=== PATIENT | female | born 1930 | race Caucasian/White ===

== ENCOUNTER 2018-09-13 09:19 | Emergency (ER) | payer MEDICARE, BC ==
[2018-09-13 09:24] VITALS: TEMP 98.4
--- NOTE | 2018-09-13 09:49 | ED ---
Extremity Problem HPI - General Chief complaint: Extremity Problem,Nontraumatic Stated complaint: arm throbbing Time Seen by Provider: 09/13/18 09:28 Source: patient, family, RN notes reviewed - History of Present Illness Initial comments: This 87-year-old female who was brought in because of left arm pain radiating to her left back she describes as throbbing gets worse when she bends over at rest she is got no pain with slight shortness of breath. She states this occurred upon awaking this morning she believes she may have slept on her left arm. She has no cough fevers chills nausea vomiting sweats palpitations or other symptoms she is wearing a heart monitor at this time. MD Complaint: extremity pain - Related Data Home Medications Medication Instructions Recorded Confirmed Aspirin 81 mg PO DAILY 04/14/16 04/14/16 Digoxin [Lanoxin] 125 mcg PO DAILY 04/14/16 04/14/16 Furosemide [Lasix] 40 mg PO DAILY 04/14/16 04/14/16 Levothyroxine Sodium [Synthroid] 50 mcg PO DAILY 04/14/16 04/14/16 Losartan [Cozaar] 50 mg PO DAILY 04/14/16 04/14/16 Metoprolol Tartrate [Lopressor] 50 mg PO BID 04/14/16 04/14/16 Multivit-Min/Iron/Folic/Lutein 1 each PO DAILY 04/14/16 04/14/16 [Centrum Silver Women Tablet] Omeprazole [PriLOSEC] 20 mg PO AC-BRKFST 04/14/16 04/14/16 Potassium Chloride [K-Tab ER] 10 meq PO BID 04/14/16 04/14/16 Simvastatin [Zocor] 10 mg PO HS 04/14/16 04/14/16 Warfarin [Coumadin] 5 mg PO DAILY 04/14/16 04/14/16 Allergies Allergy/AdvReac Type Severity Reaction Status Date / Time No Known Allergies Allergy Verified 09/13/18 10:12 Review of Systems ROS Statement: Those systems with pertinent positive or pertinent negative responses have been documented in the HPI. ROS Other: All systems not noted in ROS Statement are negative. Past Medical History Past Medical History: Atrial Fibrillation, Hyperlipidemia, Hypertension, Thyroid Disorder History of Any Multi-Drug Resistant Organisms: None Reported Past Surgical History: Orthopedic Surgery Past Psychological History: No Psychological Hx Reported Smoking Status: Never smoker Past Alcohol Use History: Occasional Past Drug Use History: None Reported General Exam - General Exam Comments Initial Comments: This is a well-developed well-nourished awake alert anxious appearing female General appearance: alert, anxious Head exam: Present: atraumatic, normocephalic, normal inspection Eye exam: Present: normal appearance, PERRL, EOMI. Absent: scleral icterus, conjunctival injection, periorbital swelling ENT exam: Present: normal exam, mucous membranes moist Neck exam: Present: normal inspection. Absent: tenderness, meningismus, lymphadenopathy Respiratory exam: Present: normal lung sounds bilaterally. Absent: respiratory distress, wheezes, rales, rhonchi, stridor Cardiovascular Exam: Present: regular rate, normal rhythm, normal heart sounds. Absent: systolic murmur, diastolic murmur, rubs, gallop, clicks GI/Abdominal exam: Present: soft, normal bowel sounds. Absent: distended, tenderness, guarding, rebound, rigid, bruit, pulsatile mass, hernia Extremities exam: Present: normal inspection, full ROM, normal capillary refill. Absent: tenderness, pedal edema, joint swelling, calf tenderness Back exam: Present: normal inspection, full ROM, tenderness, paraspinal tenderness. Absent: CVA tenderness (R), CVA tenderness (L), muscle spasm, vertebral tenderness, rash noted (Tenderness palpation of the left paraspinous musculature at the level of the inferior scapula on the left no step-off no crepitation there is some kyphosis is demonstrated.) Neurological exam: Present: alert, oriented X3, CN II-XII intact Psychiatric exam: Present: normal affect, normal mood Skin exam: Present: warm, dry, intact, normal color. Absent: rash Course Vital Signs 09/13/18 09:20 Temperature 98.4 F Pulse Rate 68 Respiratory 18 Rate Blood Pressure 153/96 O2 Sat by Pulse 98 Oximetry Medical Decision Making - Medical Decision Making Patient is feeling well at this time I did discuss [employer] her and her family the patient's presentation consistent with musculoskeletal chest wall pain. This does not appear to be cardiac in origin. Patient will be discharged with instructions for Tylenol for pain from compresses follow-up with her doctor and return when necessary - Lab Data Result diagrams: 09/13/18 10:07 09/13/18 10:07 Lab Results 09/13/18 09/13/18 09/13/18 Range/Units 10:07 10:07 10:07 WBC 6.5 (3.8-10.6) k/uL RBC 4.52 (3.80-5.40) m/uL Hgb 13.5 (11.4-16.0) gm/dL Hct 40.4 (34.0-46.0) % MCV 89.4 (80.0-100.0) fL MCH 29.8 (25.0-35.0) pg MCHC 33.3 (31.0-37.0) g/dL RDW 13.7 (11.5-15.5) % Plt Count 195 (150-450) k/uL Neutrophils % 62 % Lymphocytes % 29 % Monocytes % 5 % Eosinophils % 2 % Basophils % 1 % Neutrophils # 4.0 (1.3-7.7) k/uL Lymphocytes # 1.9 (1.0-4.8) k/uL Monocytes # 0.3 (0-1.0) k/uL Eosinophils # 0.1 (0-0.7) k/uL Basophils # 0.0 (0-0.2) k/uL PT (9.0-12.0) sec INR (<1.2) APTT (22.0-30.0) sec Sodium 140 (137-145) mmol/L Potassium 4.5 (3.5-5.1) mmol/L Chloride 106 (98-107) mmol/L Carbon Dioxide 24 (22-30) mmol/L Anion Gap 10 mmol/L BUN 19 H (7-17) mg/dL Creatinine 0.76 (0.52-1.04) mg/dL Est GFR (CKD-EPI)AfAm 83 (>60 ml/min/1.73 sqM) Est GFR (CKD-EPI)NonAf 72 (>60 ml/min/1.73 sqM) Glucose 98 (74-99) mg/dL Calcium 9.6 (8.4-10.2) mg/dL Magnesium 2.1 (1.6-2.3) mg/dL Total Bilirubin 0.6 (0.2-1.3) mg/dL AST 27 (14-36) U/L ALT 28 (9-52) U/L Alkaline Phosphatase 62 (38-126) U/L Total Creatine Kinase 63 (30-135) U/L CK-MB (CK-2) 1.1 (0.0-2.4) ng/mL CK-MB (CK-2) Rel Index 1.7 Troponin I <0.012 (0.000-0.034) ng/mL NT-Pro-B Natriuret Pep pg/mL Total Protein 6.8 (6.3-8.2) g/dL Albumin 4.1 (3.5-5.0) g/dL Amylase 63 (30-110) U/L Lipase 199 (23-300) U/L 09/13/18 09/13/18 Range/Units 10:07 10:07 WBC (3.8-10.6) k/uL RBC (3.80-5.40) m/uL Hgb (11.4-16.0) gm/dL Hct (34.0-46.0) % MCV (80.0-100.0) fL MCH (25.0-35.0) pg MCHC (31.0-37.0) g/dL RDW (11.5-15.5) % Plt Count (150-450) k/uL Neutrophils % % Lymphocytes % % Monocytes % % Eosinophils % % Basophils % % Neutrophils # (1.3-7.7) k/uL Lymphocytes # (1.0-4.8) k/uL Monocytes # (0-1.0) k/uL Eosinophils # (0-0.7) k/uL Basophils # (0-0.2) k/uL PT 26.8 H (9.0-12.0) sec INR 3.0 H (<1.2) APTT 35.6 H (22.0-30.0) sec Sodium (137-145) mmol/L Potassium (3.5-5.1) mmol/L Chloride (98-107) mmol/L Carbon Dioxide (22-30) mmol/L Anion Gap mmol/L BUN (7-17) mg/dL Creatinine (0.52-1.04) mg/dL Est GFR (CKD-EPI)AfAm (>60 ml/min/1.73 sqM) Est GFR (CKD-EPI)NonAf (>60 ml/min/1.73 sqM) Glucose (74-99) mg/dL Calcium (8.4-10.2) mg/dL Magnesium (1.6-2.3) mg/dL Total Bilirubin (0.2-1.3) mg/dL AST (14-36) U/L ALT (9-52) U/L Alkaline Phosphatase (38-126) U/L Total Creatine Kinase (30-135) U/L CK-MB (CK-2) (0.0-2.4) ng/mL CK-MB (CK-2) Rel Index Troponin I (0.000-0.034) ng/mL NT-Pro-B Natriuret Pep 878 pg/mL Total Protein (6.3-8.2) g/dL Albumin (3.5-5.0) g/dL Amylase (30-110) U/L Lipase (23-300) U/L - EKG Data -: EKG Interpreted by Me (Atrial fibrillation rate of 68 QRS 98 QT since QTC 380 /412 left exodeviatio) - Radiology Data Radiology results: report reviewed (I did review the imaging and report no acute findings.), image reviewed Disposition Clinical Impression: Myofascial pain, Chest wall pain Disposition: HOME SELF-CARE Condition: Good Instructions: Chest Wall Pain (ED), Musculoskeletal Pain (ED) Additional Instructions: Tylenol for pain Is patient prescribed a controlled substance at d/c from ED?: No Referrals: Juan Chappell MD [Primary Care Provider] - 1-2 days
[2018-09-13 10:32] LABS: Basophils % (A) 1 %; Eosinophils # (A) 0.1 k/uL (0-0.7); Eosinophils % (A) 2 %; HCT 40.4 % (34.0-46.0); HGB 13.5 gm/dL (11.4-16.0); Lymphocytes # (A) 1.9 k/uL (1.0-4.8); Lymphocytes % (A) 29 %; MCH 29.8 pg (25.0-35.0); MCHC 33.3 g/dL (31.0-37.0); MCV 89.4 fL (80.0-100.0); Mean Platelet Volume 7.3; Monocytes # (A) 0.3 k/uL (0-1.0); Monocytes % (A) 5 %; Neutrophils % (A) 62 %; Platelet Count 195 k/uL (150-450); RBC 4.52 m/uL (3.80-5.40); RDW 13.7 % (11.5-15.5); WBC 6.5 k/uL (3.8-10.6)
[2018-09-13 10:44] LABS: Albumin 4.1 g/dL (3.5-5.0); Calcium 9.6 mg/dL (8.4-10.2); Magnesium 2.1 mg/dL (1.6-2.3); Potassium 4.5 mmol/L (3.5-5.1); Total Bilirubin 0.6 mg/dL (0.2-1.3); Total Protein 6.8 g/dL (6.3-8.2)
[2018-09-13 10:55] LABS: Creatine Kinase 63 U/L (30-135)
--- NOTE | 2018-09-13 11:00 | XR ---
EXAMINATION TYPE: XR chest 2V DATE OF EXAM: 09/13/2018 COMPARISON: Prior chest x-ray 07/25/2013 HISTORY: Chest pain TECHNIQUE: Frontal and lateral views of the chest are obtained. FINDINGS: There is no focal air space opacity, pleural effusion, or pneumothorax seen. The cardiac silhouette size appears enlarged although patient is rotated which makes accentuate appearance. Arth ropathy is noted in the shoulders. The osseous structures are intact. There are overlying cardiac pascale ds. Prominent lung volume may be indicative of COPD. IMPRESSION: Possible cardiomegaly..
[2018-09-13 11:04] LABS: Partial Thromboplastin Time 35.6 sec (22.0-30.0); Prothrombin Time 26.8 sec (9.0-12.0)
[2018-09-13 11:08] LABS: Creatine Kinase MB 1.1 ng/mL (0.0-2.4); Troponin I <0.012 ng/mL (0.000-0.034)
[2018-09-13 12:15] VITALS: BP 138/93; PULSE 65; RESP 16
== END 2018-09-13 12:10 | disposition home or self-care (01) ==
LOC: EC 09:19
DX: R07.89 Other chest pain (principal); M79.18 Myalgia, other site; R06.02 Shortness of breath; I48.91 Unspecified atrial fibrillation; E78.5 Hyperlipidemia, unspecified; I10 Essential (primary) hypertension; E07.9 Disorder of thyroid, unspecified; Z79.82 Long term (current) use of aspirin; Z79.01 Long term (current) use of anticoagulants; Z79.899 Other long term (current) drug therapy
CPT/HCPCS: 36415; 71046; 80053; 82150; 82550; 82553; 83690; 83735; 83880; 84484; 85025; 85610; 85730; 93005; 99284

== ENCOUNTER 2018-12-06 09:14 | Emergency (ER) | payer MEDICARE, BC ==
--- NOTE | 2018-12-06 09:53 | ED ---
General Adult HPI - General Chief complaint: Weakness Stated complaint: Blood specks coming out of nose Time Seen by Provider: 12/06/18 09:35 Source: patient Mode of arrival: wheelchair Limitations: no limitations - History of Present Illness Initial comments: Dictation was produced using [employer] dictation software. please excuse any grammatical, word or spelling errors. Chief Complaint: 88-year-old female presents with chief complaint of blood on the tissue when she blew her nose History of Present Illness: Patient is an 88-year-old female. She takes Coumadin. She complained of bloody nose when she blew her nose. There was some mucus coated with blood. She thought that this represented she was having a stroke. Patient complains of some right nose for the past 3 days. Denies any facial pain or teeth pain. Patient denies any neurologic deficits. She had her Coumadin last check on the 30th of last month with INR 1.9. She took half a tab extra that day. The ROS documented in this emergency department record has been reviewed and confirmed by me. Those systems with pertinent positive or negative responses have been documented in the HPI. All other systems are other negative and/or noncontributory. PHYSICAL EXAM: General Impression: Alert and oriented x3, not in acute distress HEENT: Normocephalic atraumatic, extra-ocular movements intact, pupils equal and reactive to light bilaterally, mucous membranes moist. Cardiovascular: Heart regular rate and rhythm, S1&S2 audible, no murmurs, rubs or gallops Chest: Lungs clear to auscultation bilaterally, no rhonchi, no wheeze, no rales Abdomen: Bowel sounds present, abdomen soft, non-tender, non-distended, no organomegaly Musculoskeletal: Pulses present and equal in all extremities, no peripheral edema Motor: Power 5/5 bilaterally, no focal deficits noted Neurological: CN II-XII grossly intact, no focal motor or sensory deficits noted Skin: Intact with no visualized rashes Psych: Normal affect and mood ED course: 88-year-old female presents with chief complaint of concerns of possible stroke. She feels that her symptoms of bloody nose with mucus + of her having any active stroke. Patient denies any neuro deficits. As upon arrival are within acceptable limits. Reassurance provided saying that patient does not have a stroke. Patient also had secondary complaint of left elbow pain. Left elbow x-ray was obtained. X-rays unremarkable. INR is 2.1. Patient reassured that she is not having a stroke. Patient given Kingfisher [place] for her nose to prevent nose bleeding. She is told to obtain a humidifier. She is told to keep the nasal mucosa moist. Patient told to follow-up with primary care physician. If she continues to have bloody mucus from her nose may be an indication for antibiotic initiation. Possible sinusitis. Patient understandable agreeable to plan. - Related Data Home Medications Medication Instructions Recorded Confirmed Aspirin 81 mg PO DAILY 04/14/16 12/06/18 Digoxin [Lanoxin] 125 mcg PO DAILY 04/14/16 12/06/18 Furosemide [Lasix] 40 mg PO DAILY 04/14/16 12/06/18 Levothyroxine Sodium [Synthroid] 50 mcg PO DAILY 04/14/16 12/06/18 Losartan [Cozaar] 50 mg PO DAILY 04/14/16 12/06/18 Metoprolol Tartrate [Lopressor] 50 mg PO BID 04/14/16 12/06/18 Multivit-Min/Iron/Folic/Lutein 1 each PO DAILY 04/14/16 12/06/18 [Centrum Silver Women Tablet] Simvastatin [Zocor] 10 mg PO HS 04/14/16 12/06/18 Warfarin [Coumadin] 5 mg PO DAILY 04/14/16 12/06/18 Pramipexole [Mirapex] 0.125 mg PO DAILY 09/13/18 12/06/18 Warfarin [Coumadin] 2.5 mg PO WESA 09/13/18 12/06/18 Potassium Chloride ER [K-Dur 10] 10 meq PO BID 12/06/18 12/06/18 Previous Rx's Medication Instructions Recorded Sodium Chloride [[place]] 1 spray EA NOSTRIL QID #1 bottle 12/06/18 Allergies Allergy/AdvReac Type Severity Reaction Status Date / Time No Known Allergies Allergy Verified 12/06/18 10:15 Review of Systems ROS Statement: Those systems with pertinent positive or pertinent negative responses have been documented in the HPI. ROS Other: All systems not noted in ROS Statement are negative. Past Medical History Past Medical History: Atrial Fibrillation, Hyperlipidemia, Hypertension, Thyroid Disorder History of Any Multi-Drug Resistant Organisms: None Reported Past Surgical History: Orthopedic Surgery Past Psychological History: No Psychological Hx Reported Smoking Status: Never smoker Past Alcohol Use History: Daily Past Drug Use History: None Reported General Exam Limitations: no limitations Course Vital Signs 12/06/18 09:26 Temperature 97.8 F Pulse Rate 89 Respiratory 18 Rate Blood Pressure 140/81 O2 Sat by Pulse 96 Oximetry Medical Decision Making - Lab Data Lab Results 12/06/18 Range/Units 09:55 PT 20.3 H (9.0-12.0) sec INR 2.1 H (<1.2) Disposition Clinical Impression: Epistaxis Disposition: HOME SELF-CARE Condition: Good Instructions (If sedation given, give patient instructions): Nosebleed (ED) Prescriptions: Sodium Chloride [[place]isher] 1 spray EA NOSTRIL QID #1 bottle Is patient prescribed a controlled substance at d/c from ED?: No Referrals: Juan Chappell MD [Primary Care Provider] - 1-2 days Time of Disposition: 11:12
--- NOTE | 2018-12-06 10:16 | XR ---
EXAMINATION TYPE: XR elbow complete LT DATE OF EXAM: 12/06/2018 CLINICAL HISTORY: Left elbow pain. TECHNIQUE: Frontal, lateral and oblique images of the left elbow are obtained. COMPARISON: None FINDINGS: There is no acute fracture/dislocation evident in the left elbow. No abnormal fat pad sig ns are seen. Prominent spur from the lateral epicondyle distal humerus is noted at level of the exten sor tendon attachment. The overlying soft tissue appears unremarkable. IMPRESSION: As above.
[2018-12-06 10:19] LABS: INR 2.1 (<1.2); Prothrombin Time 20.3 sec (9.0-12.0)
[2018-12-06 12:03] VITALS: BP 131/79; PULSE 83; RESP 15; TEMP 98.4
== END 2018-12-06 12:08 | disposition home or self-care (01) ==
LOC: EC 09:14
DX: R04.0 Epistaxis (principal); M25.522 Pain in left elbow; I48.91 Unspecified atrial fibrillation; E78.5 Hyperlipidemia, unspecified; I10 Essential (primary) hypertension; E07.9 Disorder of thyroid, unspecified; Z86.73 Personal history of transient ischemic attack (TIA), and cerebral infarction without residual deficits; Z79.01 Long term (current) use of anticoagulants; Z79.82 Long term (current) use of aspirin; Z79.890 Hormone replacement therapy; Z79.899 Other long term (current) drug therapy
CPT/HCPCS: 36415; 85610; 99285

== ENCOUNTER 2019-05-20 14:40 | Inpatient (IN) | payer MEDICARE, BC ==
[2019-05-20] MEDS ORDERED: SODIUM CHLORIDE 0.9% 1,000 ML IV ONE (15:01)
--- NOTE | 2019-05-20 15:16 | ED ---
General Adult HPI - General Chief complaint: Neuro Symptoms/Deficit Stated complaint: slurred speech Time Seen by Provider: 05/20/19 14:54 Source: patient, family, RN notes reviewed Mode of arrival: ambulatory Limitations: no limitations - History of Present Illness Initial comments: Patient is a pleasant 88-year-old female presenting to the emergency department with family with concerns for confusion and speech problems. Onset of symptoms is unclear. Last known well was last night before going to bed. Patient did not get out of bed today until 2:30. Normally patient gets up around 7:30. Family has noticed some slurred speech and dry mouth. Patient has not ate or drink today. Patient does seem somewhat confused to them. Patient does admit she feels somewhat confused. Patient denies any area of isolated weakness. No history of similar symptoms previously. - Related Data Home Medications Medication Instructions Recorded Confirmed Aspirin 81 mg PO HS 04/14/16 05/20/19 Digoxin [Lanoxin] 125 mcg PO DAILY 04/14/16 05/20/19 Levothyroxine Sodium [Synthroid] 50 mcg PO DAILY 04/14/16 05/20/19 Metoprolol Tartrate [Lopressor] 50 mg PO BID 04/14/16 05/20/19 Simvastatin [Zocor] 10 mg PO HS 04/14/16 05/20/19 Warfarin [Coumadin] 7.5 mg PO MOWESA 04/14/16 05/20/19 Potassium Chloride 20 meq PO DAILY 04/14/19 05/20/19 Warfarin Sodium [Coumadin] 5 mg PO SUTUTHFR 04/14/19 05/20/19 Furosemide [Lasix] 20 mg PO Q48H 05/20/19 05/20/19 Furosemide [Lasix] 40 mg PO Q48H 05/20/19 05/20/19 Losartan Potassium 50 mg PO DAILY 05/20/19 05/20/19 Pramipexole [Mirapex] 0.25 mg PO HS 05/20/19 05/20/19 Allergies Allergy/AdvReac Type Severity Reaction Status Date / Time No Known Allergies Allergy Verified 05/20/19 15:05 Review of Systems ROS Statement: Those systems with pertinent positive or pertinent negative responses have been documented in the HPI. ROS Other: All systems not noted in ROS Statement are negative. Constitutional: Denies: fever Eyes: Denies: eye pain ENT: Denies: ear pain Respiratory: Denies: cough Cardiovascular: Denies: chest pain Endocrine: Reports: fatigue Gastrointestinal: Denies: abdominal pain Genitourinary: Denies: dysuria Musculoskeletal: Denies: back pain Skin: Denies: rash Neurological: Reports: confusion. Denies: headache Past Medical History Past Medical History: Atrial Fibrillation, Hyperlipidemia, Hypertension, Thyroid Disorder History of Any Multi-Drug Resistant Organisms: None Reported Past Surgical History: Orthopedic Surgery Past Anesthesia/Blood Transfusion Reactions: No Reported Reaction Past Psychological History: No Psychological Hx Reported Smoking Status: Never smoker Past Alcohol Use History: Occasional Past Drug Use History: None Reported - Past Family History Daughter(s) Family Medical History: Cancer, Thyroid Disorder General Exam Limitations: no limitations General appearance: alert, in no apparent distress Head exam: Present: atraumatic Eye exam: Present: normal appearance, PERRL, EOMI ENT exam: Present: mucous membranes dry Neck exam: Present: normal inspection. Absent: meningismus Respiratory exam: Present: normal lung sounds bilaterally Cardiovascular Exam: Present: irregular rhythm GI/Abdominal exam: Present: soft. Absent: tenderness Extremities exam: Present: normal inspection Neurological exam: Present: alert, CN II-XII intact Expanded Neurological exam: Present: other (Very Mild slurred speech. Patient does appear to have dry mouth.) Patient oriented to: Present: person, place. Absent: time Cranial nerves: EOM's Intact: Normal Sensory exam: Upper Extremity Light Touch: Normal, Lower Extremity Light Touch: Normal Motor strength exam: RUE: 5, LUE: 5, RLE: 5, LLE: 4 (Patient and family state this is chronic from previous injury) Eye Response: (4) open spontaneously Motor Response: (6) obeys commands Verbal Response: (4) confused conversation Psychiatric exam: Present: normal affect, normal mood Skin exam: Present: normal color Course Vital Signs 05/20/19 14:45 Temperature 98.5 F Pulse Rate 68 Respiratory 18 Rate Blood Pressure 95/58 O2 Sat by Pulse 98 Oximetry EKG Findings - EKG Comments: EKG Findings:: A. fib with rate of 65. QRS 102. QT 444. QTC 461. Left axis. Inferior Q waves. No acute ST change. Medical Decision Making - Medical Decision Making Patient reevaluated. Patient and family updated on results. 2 new Family members are present at this time. they also agreed that left leg problems are chronic and unchanged. Speech is improved. Patient state patient did have similar problems to this last time that the gallbladder was involved. They do not have any concern for stroke symptoms. One family member specifically also felt that speech was secondary to dry mouth. They are aware that neurology is not available at this time. Case was also discussed in detail with Dr. Dempsey, covering for Dr. Chappell, who will admit. Case also discussed with Dr. Perkins, who will consult. - Lab Data Result diagrams: 05/20/19 15:24 05/20/19 15:24 Lab Results 05/20/19 05/20/19 05/20/19 Range/Units 15:16 15:24 15:24 WBC 19.3 H (3.8-10.6) k/uL RBC 4.38 (3.80-5.40) m/uL Hgb 12.0 (11.4-16.0) gm/dL Hct 37.6 (34.0-46.0) % MCV 85.7 D (80.0-100.0) fL MCH 27.3 (25.0-35.0) pg MCHC 31.9 (31.0-37.0) g/dL RDW 13.6 (11.5-15.5) % Plt Count 207 (150-450) k/uL Neutrophils % 93 % Lymphocytes % 3 % Monocytes % 3 % Eosinophils % 1 % Basophils % 0 % Neutrophils # 18.0 H (1.3-7.7) k/uL Lymphocytes # 0.5 L (1.0-4.8) k/uL Monocytes # 0.6 (0-1.0) k/uL Eosinophils # 0.1 (0-0.7) k/uL Basophils # 0.0 (0-0.2) k/uL PT (9.0-12.0) sec INR (<1.2) APTT (22.0-30.0) sec Sodium 138 (137-145) mmol/L Potassium 3.8 (3.5-5.1) mmol/L Chloride 103 (98-107) mmol/L Carbon Dioxide 26 (22-30) mmol/L Anion Gap 9 mmol/L BUN 24 H (7-17) mg/dL Creatinine 0.82 (0.52-1.04) mg/dL Est GFR (CKD-EPI)AfAm 75 (>60 ml/min/1.73 sqM) Est GFR (CKD-EPI)NonAf 65 (>60 ml/min/1.73 sqM) Glucose 172 H (74-99) mg/dL POC Glucose (mg/dL) 173 H (75-99) mg/dL POC Glu Color [employer] Supervisor ID Iman Lin Calcium 9.0 (8.4-10.2) mg/dL Total Bilirubin 2.8 H (0.2-1.3) mg/dL AST 386 H (14-36) U/L ALT 304 H (9-52) U/L Alkaline Phosphatase 214 H (38-126) U/L Ammonia (<30) umol/L Troponin I (0.000-0.034) ng/mL Total Protein 6.1 L (6.3-8.2) g/dL Albumin 3.7 (3.5-5.0) g/dL Urine Color Urine Appearance (Clear) Urine pH (5.0-8.0) Ur Specific [place] (1.001-1.035) Urine Protein (Negative) Urine Glucose (UA) (Negative) Urine Ketones (Negative) Urine Blood (Negative) Urine Nitrite (Negative) Urine Bilirubin (Negative) Urine Urobilinogen (<2.0) mg/dL Ur Leukocyte Esterase (Negative) Urine RBC (0-5) /hpf Urine WBC (0-5) /hpf Urine Bacteria (None) /hpf 05/20/19 05/20/19 05/20/19 Range/Units 15:24 15:24 16:12 WBC (3.8-10.6) k/uL RBC (3.80-5.40) m/uL Hgb (11.4-16.0) gm/dL Hct (34.0-46.0) % MCV (80.0-100.0) fL MCH (25.0-35.0) pg MCHC (31.0-37.0) g/dL RDW (11.5-15.5) % Plt Count (150-450) k/uL Neutrophils % % Lymphocytes % % Monocytes % % Eosinophils % % Basophils % % Neutrophils # (1.3-7.7) k/uL Lymphocytes # (1.0-4.8) k/uL Monocytes # (0-1.0) k/uL Eosinophils # (0-0.7) k/uL Basophils # (0-0.2) k/uL PT 28.5 H (9.0-12.0) sec INR 3.0 H (<1.2) APTT 36.8 H (22.0-30.0) sec Sodium (137-145) mmol/L Potassium (3.5-5.1) mmol/L Chloride (98-107) mmol/L Carbon Dioxide (22-30) mmol/L Anion Gap mmol/L BUN (7-17) mg/dL Creatinine (0.52-1.04) mg/dL Est GFR (CKD-EPI)AfAm (>60 ml/min/1.73 sqM) Est GFR (CKD-EPI)NonAf (>60 ml/min/1.73 sqM) Glucose (74-99) mg/dL POC Glucose (mg/dL) (75-99) mg/dL POC Glu Color [employer] Mix[employer] Supervisor ID Calcium (8.4-10.2) mg/dL Total Bilirubin (0.2-1.3) mg/dL AST (14-36) U/L ALT (9-52) U/L Alkaline Phosphatase (38-126) U/L Ammonia (<30) umol/L Troponin I 0.018 (0.000-0.034) ng/mL Total Protein (6.3-8.2) g/dL Albumin (3.5-5.0) g/dL Urine Color Yellow Urine Appearance Clear (Clear) Urine pH 5.5 (5.0-8.0) Ur Specific [place] 1.008 (1.001-1.035) Urine Protein Negative (Negative) Urine Glucose (UA) Negative (Negative) Urine Ketones Negative (Negative) Urine Blood Trace H (Negative) Urine Nitrite Negative (Negative) Urine Bilirubin Negative (Negative) Urine Urobilinogen 2.0 (<2.0) mg/dL Ur Leukocyte Esterase Negative (Negative) Urine RBC 1 (0-5) /hpf Urine WBC 1 (0-5) /hpf Urine Bacteria Rare H (None) /hpf 05/20/19 Range/Units 16:12 WBC (3.8-10.6) k/uL RBC (3.80-5.40) m/uL Hgb (11.4-16.0) gm/dL Hct (34.0-46.0) % MCV (80.0-100.0) fL MCH (25.0-35.0) pg MCHC (31.0-37.0) g/dL RDW (11.5-15.5) % Plt Count (150-450) k/uL Neutrophils % % Lymphocytes % % Monocytes % % Eosinophils % % Basophils % % Neutrophils # (1.3-7.7) k/uL Lymphocytes # (1.0-4.8) k/uL Monocytes # (0-1.0) k/uL Eosinophils # (0-0.7) k/uL Basophils # (0-0.2) k/uL PT (9.0-12.0) sec INR (<1.2) APTT (22.0-30.0) sec Sodium (137-145) mmol/L Potassium (3.5-5.1) mmol/L Chloride (98-107) mmol/L Carbon Dioxide (22-30) mmol/L Anion Gap mmol/L BUN (7-17) mg/dL Creatinine (0.52-1.04) mg/dL Est GFR (CKD-EPI)AfAm (>60 ml/min/1.73 sqM) Est GFR (CKD-EPI)NonAf (>60 ml/min/1.73 sqM) Glucose (74-99) mg/dL POC Glucose (mg/dL) (75-99) mg/dL POC Glu Color P[employer] Mix[employer] Supervisor ID Calcium (8.4-10.2) mg/dL Total Bilirubin (0.2-1.3) mg/dL AST (14-36) U/L ALT (9-52) U/L Alkaline Phosphatase (38-126) U/L Ammonia <9 (<30) umol/L Troponin I (0.000-0.034) ng/mL Total Protein (6.3-8.2) g/dL Albumin (3.5-5.0) g/dL Urine Color Urine Appearance (Clear) Urine pH (5.0-8.0) Ur Specific [place] (1.001-1.035) Urine Protein (Negative) Urine Glucose (UA) (Negative) Urine Ketones (Negative) Urine Blood (Negative) Urine Nitrite (Negative) Urine Bilirubin (Negative) Urine Urobilinogen (<2.0) mg/dL Ur Leukocyte Esterase (Negative) Urine RBC (0-5) /hpf Urine WBC (0-5) /hpf Urine Bacteria (None) /hpf - Radiology Data Radiology results: report reviewed (Computed tomography scan the brain shows chronic changes and atrophy without acute process. Gallbladder ultrasound does show gallstones. There is dilation of the bile ducts.), image reviewed (Chest x-ray shows no acute process) Disposition Clinical Impression: Elevated liver enzymes, Cholelithiasis Disposition: ADMITTED IP TO THIS HOSP Is patient prescribed a controlled substance at d/c from ED?: No Referrals: Juan Chappell MD [Primary Care Provider] - 1-2 days Decision Time: 17:33
[2019-05-20 15:20] LABS: Glucose,Whole Blood 173 mg/dL (75-99)
[2019-05-20 15:47] LABS: Partial Thromboplastin Time 36.8 sec (22.0-30.0); Prothrombin Time 28.5 sec (9.0-12.0)
[2019-05-20 15:49] LABS: Albumin 3.7 g/dL (3.5-5.0); Basophils % (A) 0 %; Eosinophils # (A) 0.1 k/uL (0-0.7); Eosinophils % (A) 1 %; HCT 37.6 % (34.0-46.0); Lymphocytes # (A) 0.5 k/uL (1.0-4.8); Lymphocytes % (A) 3 %; MCH 27.3 pg (25.0-35.0); MCHC 31.9 g/dL (31.0-37.0); Mean Platelet Volume 6.6; Monocytes # (A) 0.6 k/uL (0-1.0); Monocytes % (A) 3 %; Neutrophils % (A) 93 %; Platelet Count 207 k/uL (150-450); Potassium 3.8 mmol/L (3.5-5.1); RBC 4.38 m/uL (3.80-5.40); RDW 13.6 % (11.5-15.5); Total Bilirubin 2.8 mg/dL (0.2-1.3); Total Protein 6.1 g/dL (6.3-8.2); WBC 19.3 k/uL (3.8-10.6)
[2019-05-20 15:50] LABS: MCV 85.7 fL (80.0-100.0)
--- NOTE | 2019-05-20 16:05 | CT ---
EXAMINATION TYPE: CT brain wo con DATE OF EXAM: 05/20/2019 COMPARISON: None HISTORY: altered mental status CT DLP: 1091.[address] of the brain was performed. The ventricles, basal cisterns and sulci overlying the cerebral convexities demonstrate mild enlargem ent. There is no evidence for intracranial hemorrhage or sulcal effacement. There is decreased attenuation about the periventricular white matter and deep white matter of both c erebral hemispheres, compatible with chronic small vessel ischemia. Differential diagnosis does inclu de demyelination. No mass effects are seen.No midline shift. Osseous calvarium is intact. If symptoms persist consider MRI. IMPRESSION: 1. Age related atrophic and chronic small vessel ischemic change without acute intracranial process s een at this time.
--- NOTE | 2019-05-20 16:06 | XR ---
EXAMINATION TYPE: XR chest 2V DATE OF EXAM: 05/20/2019 COMPARISON: 04/14/2019 HISTORY: Shortness of breath TECHNIQUE: Frontal and lateral views of the chest are obtained. FINDINGS: Scattered senescent parenchymal changes noted. Hyperinflation compatible with COPD. No evidence for infiltrate. No evidence for atelectasis. Heart size is stable. Mediastinal structures are stable and grossly unremarkable. No evidence for hilar prominence. Degenerative changes dorsal spine. IMPRESSION: 1. No evidence for acute pulmonary disease.
[2019-05-20 16:50] LABS: Appearance,Urine Clear (Clear); Bacteria,Urine Rare /hpf; Bilirubin,Urine Negative (Negative); Blood,Urine Trace (Negative); Color,Urine Yellow; Glucose,Urine (UA) Negative (Negative); Ketones,Urine Negative (Negative); Leukocyte Esterase,Urine Negative (Negative); Nitrite,Urine Negative (Negative); PH, Urine 5.5 (5.0-8.0); Protein,Urine Negative (Negative); RBC,Urine 1 /hpf (0-5); Specific Gravity,Urine 1.008 (1.001-1.035); WBC,Urine 1 /hpf (0-5)
[2019-05-20] MEDS ORDERED: SODIUM CHLORIDE 0.9% 500 ML 500 ML IV STA (16:54)
--- NOTE | 2019-05-20 17:05 | US ---
EXAMINATION TYPE: US gallbladder DATE OF EXAM: 05/20/2019 COMPARISON: CLINICAL HISTORY: Pain. Patient states having no pain. Hx GB abnormalities. EXAM MEASUREMENTS: Liver Length: 18.1 cm Gallbladder Wall: 0.1 cm CBD: 1.3 cm CHD: 0.9 cm Right Kidney: 4.5 x 3.0 x 3.2 cm Pancreas: Appears echogenic in appearance. Main pancreatic duct = 2.5 mm Liver: Appears enlarged in size and coarse. Caudate lobe appears prominent in size. Gallbladder: Internal echogenic echoes and echogenic foci with shadowing seen. Evidence for sonographic Potts's sign: neg CBD: Appears dilated Right Kidney: lower pole cystic appearing lesion - 4.5 x 3.0 x 3.2 cm IMPRESSION: Multiple gallstones. Mildly dilated bile ducts could relate to chronic gallbladder dysfun ction. No common duct stone seen.
[2019-05-20] MEDS ORDERED: SODIUM CHLORIDE 0.9% 1,000 ML IV STA (17:30)
[2019-05-20] MEDS ORDERED: NALOXONE 0.4 MG/ML 1 ML VIAL IV PRN (17:34)
[2019-05-20] MEDS ORDERED: PIPERACILLIN-TAZOBACTAM 3.375 GM in SODIUM CHLORIDE 0.9% 100 ML IVPB STA (17:36)
[2019-05-20] MEDS ORDERED: WARFARIN 5 MG TAB PO SCH (18:30)
[2019-05-20] MEDS ORDERED: ACETAMINOPHEN TAB 325 MG TAB PO PRN (18:31)
--- NOTE | 2019-05-20 18:49 | P.HPIM ---
History of Present Illness H&P Date: 05/20/19 Chief Complaint: Confusion, slurred speech 88-year-old female with PMH of atrial fibrillation on Coumadin, hypertension, diabetes, hyperlipidemia presents to the ED for generalized weakness, confusion and slurred speech. Son is at bedside providing majority of the history. Per son, patient is used to waking up early in the morning around 8 AM and going about her day. Son came to visit his mother around 2:30 PM to find herself still in bed. He noticed that the patient was confused. Son also noticed that the patient had slurring of speech. Patient reports that the slurring of her speech began around 11:15 PM yesterday. Son reports that the patient was very weak and unable to get out of bed. Blood pressure during that time was 94/52 and 90/50. Patient denies any headache, lower extremity edema, nausea or vomiting, fever or chills, cough, chest pain, palpitations, changes in urination or bowel habits. Son reports that the patient has had a decreased appetite for a number of years now. She denies any dizziness, numbness/weakness/tingling of the extremities. Patient does report some shortness of breath that has been ongoing for many years. Patient reports that she is unable to walk to her mailbox at this time due to her breathing difficulties. In the ED, vital signs are stable except for a BP of 95/58. CBC showed a leukocytosis of 19.3. Coagulation panel showed INR of 3. CMP showed a BUN of 24, glucose of 172. AST was elevated at 386, ALTs of 304, total bilirubin of 2.800 [address] phosphatase of 214[address] CT brain was negative for acute findings. Troponin was 0.018, EKG showing atrial fibrillation. Chest x-ray was negative. Gallbladder ultrasound showed multiple gallstones with dilated gallbladder duct. Patient is being admitted for possible cholecystitis, started on IV antibiotics by ED, GI and general surgery consulted. She is also being ruled out for ACS and CVA. Review of Systems Pertinent positives and negatives as discussed in HPI, a complete review of systems was performed and all other systems are negative. Past Medical History Past Medical History: Atrial Fibrillation, Hyperlipidemia, Hypertension, Thyroid Disorder History of Any Multi-Drug Resistant Organisms: None Reported Past Surgical History: Orthopedic Surgery Past Anesthesia/Blood Transfusion Reactions: No Reported Reaction Past Psychological History: No Psychological Hx Reported Smoking Status: Never smoker Past Alcohol Use History: Occasional Past Drug Use History: None Reported - Past Family History Daughter(s) Family Medical History: Cancer, Thyroid Disorder Medications and Allergies Home Medications Medication Instructions Recorded Confirmed Type Aspirin 81 mg PO HS 04/14/16 05/20/19 History Digoxin [Lanoxin] 125 mcg PO DAILY 04/14/16 05/20/19 History Levothyroxine Sodium [Synthroid] 50 mcg PO DAILY 04/14/16 05/20/19 History Metoprolol Tartrate [Lopressor] 50 mg PO BID 04/14/16 05/20/19 History Simvastatin [Zocor] 10 mg PO HS 04/14/16 05/20/19 History Warfarin [Coumadin] 7.5 mg PO MOWESA 04/14/16 05/20/19 History Potassium Chloride 20 meq PO DAILY 04/14/19 05/20/19 History Warfarin Sodium [Coumadin] 5 mg PO SUTUTHFR 04/14/19 05/20/19 History Furosemide [Lasix] 20 mg PO Q48H 05/20/19 05/20/19 History Furosemide [Lasix] 40 mg PO Q48H 05/20/19 05/20/19 History Losartan Potassium 50 mg PO DAILY 05/20/19 05/20/19 History Pramipexole [Mirapex] 0.25 mg PO HS 05/20/19 05/20/19 History Allergies Allergy/AdvReac Type Severity Reaction Status Date / Time No Known Allergies Allergy Verified 05/20/19 15:05 Physical Exam Vitals: Vital Signs Temp Pulse Resp BP Pulse Ox 05/20/19 14:45 98.5 F 68 18 95/58 98 Intake and Output 05/20/19 05/20/19 05/20/19 06:59 14:59 22:59 Other: Weight 71.214 kg General: [non toxic], [no distress], [appears at stated age] Derm: [warm], [dry] Head: [atraumatic], [normocephalic], [symmetric] Eyes: [EOMI], [no lid lag], [anicteric sclera] Mouth: [no lip lesion], [mucus membranes moist] Cardiovascular: [S1S2 reg], [no murmur], [positive DP pulse bilateral], Lungs: [CTA bilateral], [no rhonchi, no rales] , [no accessory muscle use] Abdominal: [soft], [ nontender to palpation], [no guarding], [no appreciable organomegaly], [negative Potts] Ext: [no gross muscle atrophy], [no edema], [no contractures] Neuro: [ CN II-XI grossly intact], [no focal neuro deficits] Psych: [Alert], [oriented], [appropriate affect] Results CBC & Chem 7: 05/20/19 15:24 05/20/19 15:24 Labs: Abnormal Lab Results - Last 24 Hours (Table) 05/20/19 05/20/19 05/20/19 Range/Units 15:16 15:24 15:24 WBC 19.3 H (3.8-10.6) k/uL Neutrophils # 18.0 H (1.3-7.7) k/uL Lymphocytes # 0.5 L (1.0-4.8) k/uL PT (9.0-12.0) sec INR (<1.2) APTT (22.0-30.0) sec BUN 24 H (7-17) mg/dL Glucose 172 H (74-99) mg/dL POC Glucose (mg/dL) 173 H (75-99) mg/dL Total Bilirubin 2.8 H (0.2-1.3) mg/dL AST 386 H (14-36) U/L ALT 304 H (9-52) U/L Alkaline Phosphatase 214 H (38-126) U/L Total Protein 6.1 L (6.3-8.2) g/dL Urine Blood (Negative) Urine Bacteria (None) /hpf 05/20/19 05/20/19 Range/Units 15:24 16:12 WBC (3.8-10.6) k/uL Neutrophils # (1.3-7.7) k/uL Lymphocytes # (1.0-4.8) k/uL PT 28.5 H (9.0-12.0) sec INR 3.0 H (<1.2) APTT 36.8 H (22.0-30.0) sec BUN (7-17) mg/dL Glucose (74-99) mg/dL POC Glucose (mg/dL) (75-99) mg/dL Total Bilirubin (0.2-1.3) mg/dL AST (14-36) U/L ALT (9-52) U/L Alkaline Phosphatase (38-126) U/L Total Protein (6.3-8.2) g/dL Urine Blood Trace H (Negative) Urine Bacteria Rare H (None) /hpf Thrombosis Risk Factor Assmnt - Choose All That Apply Any of the Below Risk Factors Present?: Yes Each Factor Represents 1 point: Obesity (BMI >25) Other Risk Factors: Yes Each Risk Factor Represents 3 Points: Age 75 years or older Thrombosis Risk Factor Assessment Total Risk Factor Score: 4 Thrombosis Risk Factor Assessment Level: Moderate Risk Assessment and Plan Assessment: Acute encephalopathy with slurred speech, possibly infectious, rule out CVA and ACS Possible cholecystitis with transaminitis Atrial fibrillation on Coumadin Hypertension Diabetes mellitus Hyperlipidemia CT brain negative for acute findings. Ammonia negative. Urinalysis negative for UTI. Troponin 0.018, EKG showing atrial fibrillation. Echocardiogram shows EF 50-55% with mild concentric LVH. Plans: Continue IV antibiotics and ovi tment of cholecystitis. Will trend Trop/EKG to rule out ACS. Follow carotid ultrasound and MRI brain to complete stroke workup. Follow A1c and lipid panel. Telemetry monitoring. Follow PT, OT and ST. Advance neurochecks. Fall precautions. Total bilirubin 2.8, AST 386, ALP 304, alkaline phosphatase 214. Patient has leukocytosis of 19 but afebrile. Gallbladder ultrasound shows multiple gall stones and mildly dilated bile ducts. Plans: Started on Zosyn in the ED. Tylenol as needed for fever. Continue normal saline at 125 mL per hour. Follow general surgery and gastroenterology consultation. Protonix IV daily. Rate controlled. INR within normal limits. Plans: Continue metoprolol. Continue digoxin for rhythm control. Anticoagulation with Coumadin, INR 2-3. BP 95/58. Plans: Continue metoprolol, losartan. Monitor vitals, adjust medications as necessary. [id number] glucose 172. Plans: Insulin sliding scale. Regular Accu-Cheks. Hypoglycemic precautions. Stable. Plans: Continue aspirin and Lipitor. DVT prophylaxis: [Heparin] Discussed with: [Patient and family] Anticipated discharge: [Home] Anticipated discharge place: [2-3 days] A total of [60] minutes was spent on the care of this complex patient more than 50% of the time was spent in counseling and care coordination. Patient admitted for confusion and slurred speech. Rule out ACS. Rule out CVA. Found to have leukocytosis with elevated liver enzymes, gallstones on ultras ound. Being treated with IV antibiotics with general surgery and gastroenterology on board. Pending clinical improvement. Likely DC in 2-3 days. Patient states that she is open towards chest compressions but elects to have no intubation. She will be full code with no mechanical intubation.
--- NOTE | 2019-05-20 19:25 | US ---
EXAMINATION TYPE: US carotid duplex BILAT DATE OF EXAM: 05/20/2019 COMPARISON: US 2009 CLINICAL HISTORY: possible cva. EXAM MEASUREMENTS: RIGHT: Peak Systolic Velocity (PSV) cm/sec ----- Right CCA: 64.5 ----- Right ICA: 65.5 ----- Right ECA: 77.4 ICA/CCA ratio: 1.0 RIGHT: End Diastole cm/sec ----- Right CCA: 14.8 ----- Right ICA: 15.1 ----- Right ECA: 0.0 LEFT: Peak Systolic Velocity (PSV) cm/sec ----- Left CCA: 63.6 ----- Left ICA: 75.8 ----- Left ECA: 86.2 ICA/CCA ratio: 1.2 LEFT: End Diastole cm/sec ----- Left CCA: 13.3 ----- Left ICA: 23.6 ----- Left ECA: 0.0 VERTEBRALS (direction of flow): Right Vertebral: Antegrade Left Vertebral: Antegrade Rhythm: Arrhythmia No elevated velocities, no significant stenosis. IMPRESSION: There is antegrade flow in the vertebral arteries. There is minimal plaque formation. Im ages in measurements suggest less than 20% stenosis in both internal carotid arteries. Criteria for Assigning % of Stenosis / Diameter reduction (Estimation based on the indirect measurements of the internal carotid artery velocities (ICA PSV). 1. Normal (no stenosis)=ICA PSV < 125 cm/s: ratio < 2.0: ICA EDV<40 cm/s. 2. Less than 50% stenosis=ICA PSV < 125 cm/s: ratio < 2.0: ICA EDV<40 cm/s. 3. 50 to 69% stenosis=ICA PSV of 125 to 230 cm/s: ration 2.0 ? 4.0: ICA EDV 40-100 cm/s. 4. Greater than 70% stenosis to near occlusion= ICA PSV > 230 cm/s: ratio > 4.0: ICA EDV > 100 cm/s. 5. Near occlusion= ICA PSV velocities may be low or undetectable: variable ratio and ICA EDV. 6. Total occlusion=unable to detect flow.
[2019-05-20] MEDS: PANTOPRAZOLE 40 MG/10 ML VIAL IV SCH (21:15)
[2019-05-20] MEDS: SODIUM CHLORIDE 0.9% 1,000 ML IV SCH (22:11)
[2019-05-20] MEDS: HEPARIN SODIUM,PORCINE 5,000 UNIT/ML 1 ML VIAL SQ SCH (22:12)
[2019-05-20] MEDS: PRAMIPEXOLE 0.25 MG TAB PO SCH (22:13)
[2019-05-20] MEDS: METOPROLOL TARTRATE 50 MG TAB PO SCH (22:13)
[2019-05-20] MEDS: ASPIRIN 81 MG PO SCH (22:13)
[2019-05-20] MEDS: ATORVASTATIN 10 MG TAB PO SCH (22:13)
[2019-05-20] MEDS: INSULIN ASPART (NovoLOG) 100 UNIT/ML VIAL SQ SCH (22:13)
[2019-05-21] MEDS: PIPERACILLIN-TAZOBACTAM 3.375 GM in SODIUM CHLORIDE 0.9% 100 ML IVPB SCH ×3 (03:52→20:25)
[2019-05-21] MEDS: LEVOTHYROXINE 50 MCG TAB PO SCH (03:56)
[2019-05-21] MEDS: SODIUM CHLORIDE 0.9% 1,000 ML IV SCH ×3 (03:56→20:24)
[2019-05-21 07:04] LABS: Basophils % (A) 0 %; Eosinophils # (A) 0.1 k/uL (0-0.7); Eosinophils % (A) 1 %; HCT 34.9 % (34.0-46.0); HGB 11.3 gm/dL (11.4-16.0); Lymphocytes # (A) 0.8 k/uL (1.0-4.8); Lymphocytes % (A) 8 %; MCH 28.2 pg (25.0-35.0); MCHC 32.4 g/dL (31.0-37.0); MCV 87.2 fL (80.0-100.0); Mean Platelet Volume 7.3; Monocytes # (A) 0.4 k/uL (0-1.0); Monocytes % (A) 4 %; Neutrophils # (A) 9.6 k/uL (1.3-7.7); Neutrophils % (A) 87 %; Platelet Count 175 k/uL (150-450); RDW 14.1 % (11.5-15.5); WBC 11.1 k/uL (3.8-10.6)
[2019-05-21 07:08] LABS: INR 2.5 (<1.2); Prothrombin Time 24.4 sec (9.0-12.0)
[2019-05-21 07:15] LABS: Potassium 3.1 mmol/L (3.5-5.1); Total Bilirubin 3.2 mg/dL (0.2-1.3); Total Protein 5.3 g/dL (6.3-8.2)
[2019-05-21 07:25] LABS: Glucose,Whole Blood 98 mg/dL (75-99)
[2019-05-21] MEDS: INSULIN ASPART (NovoLOG) 100 UNIT/ML VIAL SQ SCH ×4 (08:55→20:52)
[2019-05-21] MEDS: LOSARTAN 50 MG TAB PO SCH (09:10)
[2019-05-21] MEDS: METOPROLOL TARTRATE 50 MG TAB PO SCH ×2 (09:10→20:33)
[2019-05-21] MEDS: HEPARIN SODIUM,PORCINE 5,000 UNIT/ML 1 ML VIAL SQ SCH ×2 (09:11→20:51)
[2019-05-21] MEDS: PANTOPRAZOLE 40 MG/10 ML VIAL IV SCH (09:11)
[2019-05-21] MEDS: DIGOXIN 125 MCG TAB PO SCH (09:11)
[2019-05-21] MEDS ORDERED: POTASSIUM CHLORIDE ER 20 MEQ TAB.ER PO STA (10:00)
--- NOTE | 2019-05-21 10:06 | P.PN ---
Subjective Progress Note Date: 05/21/19 Patient is an 88-year-old female with a PMH of A. fib on Coumadin, hypertension, hyperlipidemia, diabetes mellitus, who presented to the ED for slurred speech and lethargy. The history was supplemented by the son who had reported that he found her mother to be lethargic, and in bed confused on the day of presentation. The patient's BP on admission was 95/58. The patient underwent an extensive evaluation in the ED w/ leukocytosis of 19.3, INR of 3, AST 386, ALT 304, Bili total 2.8, Alk phos 214, and Troponin 0.018. Imaging w/ CT Brain was unremarkable and EKG revealed A-fib. Gallbladder US showed multiple gall-stones w/ mildly dilated bile ducts. No CBD stone was visualized. The patient was admitted to the medicine service for suspected acute cholecystitis with rule out CVA and ACS. The patient was seen and examined at the bedside on 04/21/2019. The patient was in good spirits and noted that she feels significantly improved from admission. The son at the bedside noted that he feels that his mother is back to her baseline. He attributed some of her symptoms to dehydration and lack of ap petite chronically at home, which he feels were corrected with IV hydration. The patient denied having any pain or any additional complaints. She denied abdominal pain, nausea, or vomiting. She subsequently also denied chest pain, shortness of breath. She denied any speech deficits, weakness, numbness, or tingling. The son reported that as per him, her speech is back to her baseline. Objective - Vital Signs Vital signs: Vital Signs Temp 97.6 F 05/21/19 04:56 Pulse 89 05/21/19 04:56 Resp 16 05/21/19 04:56 BP 107/59 05/21/19 04:56 Pulse Ox 94 L 05/21/19 04:56 Intake & Output 05/20/19 05/21/19 05/21/19 18:59 06:59 18:59 Intake Total 790 Balance 790 Weight 71.214 kg Intake: Intake, IV Titration 200 Amount Piperacillin-Tazobactam 3 100 .375 gm In Sodium Chloride 0.9% 100 ml @ 25 mls/hr IVPB Q8H [facility] Rx#: [id number] Sodium Chloride 0.9% 1, 100 000 ml @ 125 mls/hr IV . Q8H [facility] Rx#:[id number] Oral 590 Other: # Voids 2 - Exam General: Non-toxic, pleasant elderly female in no acute distress, appears stated age, normal weight HEENT: NC/AT, anicteric sclerae, moist conjunctiva, no lid-lag, PERRLA Cardiovascular: S1/S2 wnl, no murmurs, rubs, or gallops Lungs: Clear to auscultation, normal respiratory effort, no accessory muscle use Abdominal: Soft, non-tender, non-distended, no guarding, rebound, or rigidity Skin: Warm, dry Extremities: No edema or contractures Psychiatric: Alert and oriented to person, place and time, appropriate affect Neuro: CN II-XII grossly intact, Strength 5/5 in all 4 extremities, Speech intact, Sensation to light touch grossly intact throughout - Labs CBC & Chem 7: 05/21/19 06:32 05/21/19 06:32 Labs: Abnormal Lab Results - Last 24 Hours (Table) 05/20/19 05/20/19 05/20/19 Range/Units 15:16 15:24 15:24 WBC 19.3 H (3.8-10.6) k/uL Hgb (11.4-16.0) gm/dL Neutrophils # 18.0 H (1.3-7.7) k/uL Lymphocytes # 0.5 L (1.0-4.8) k/uL PT (9.0-12.0) sec INR (<1.2) APTT (22.0-30.0) sec Potassium (3.5-5.1) mmol/L Chloride (98-107) mmol/L BUN 24 H (7-17) mg/dL Glucose 172 H (74-99) mg/dL POC Glucose (mg/dL) 173 H (75-99) mg/dL Calcium (8.4-10.2) mg/dL Total Bilirubin 2.8 H (0.2-1.3) mg/dL AST 386 H (14-36) U/L ALT 304 H (9-52) U/L Alkaline Phosphatase 214 H (38-126) U/L Total Protein 6.1 L (6.3-8.2) g/dL Albumin (3.5-5.0) g/dL HDL Cholesterol (40-60) mg/dL Urine Blood (Negative) Urine Bacteria (None) /hpf 05/20/19 05/20/19 05/21/19 Range/Units 15:24 16:12 06:32 WBC 11.1 H (3.8-10.6) k/uL Hgb 11.3 L (11.4-16.0) gm/dL Neutrophils # 9.6 H (1.3-7.7) k/uL Lymphocytes # 0.8 L (1.0-4.8) k/uL PT 28.5 H (9.0-12.0) sec INR 3.0 H (<1.2) APTT 36.8 H (22.0-30.0) sec Potassium (3.5-5.1) mmol/L Chloride (98-107) mmol/L BUN (7-17) mg/dL Glucose (74-99) mg/dL POC Glucose (mg/dL) (75-99) mg/dL Calcium (8.4-10.2) mg/dL Total Bilirubin (0.2-1.3) mg/dL AST (14-36) U/L ALT (9-52) U/L Alkaline Phosphatase (38-126) U/L Total Protein (6.3-8.2) g/dL Albumin (3.5-5.0) g/dL HDL Cholesterol (40-60) mg/dL Urine Blood Trace H (Negative) Urine Bacteria Rare H (None) /hpf 05/21/19 05/21/19 Range/Units 06:32 06:32 WBC (3.8-10.6) k/uL Hgb (11.4-16.0) gm/dL Neutrophils # (1.3-7.7) k/uL Lymphocytes # (1.0-4.8) k/uL PT 24.4 H (9.0-12.0) sec INR 2.5 H (<1.2) APTT (22.0-30.0) sec Potassium 3.1 L (3.5-5.1) mmol/L Chloride 110 H (98-107) mmol/L BUN 18 H (7-17) mg/dL Glucose (74-99) mg/dL POC Glucose (mg/dL) (75-99) mg/dL Calcium 8.0 L (8.4-10.2) mg/dL Total Bilirubin 3.2 H (0.2-1.3) mg/dL AST 185 H (14-36) U/L ALT 212 H (9-52) U/L Alkaline Phosphatase 177 H (38-126) U/L Total Protein 5.3 L (6.3-8.2) g/dL Albumin 3.0 L (3.5-5.0) g/dL HDL Cholesterol 39 L (40-60) mg/dL Urine Blood (Negative) Urine Bacteria (None) /hpf Assessment and Plan Plan: Sepsis, now resolved, suspected acute cholecystitis versus cholangitis -GI and surgery consulted, recommendations pending -AST and ALT downtrending with T bili up to 3.2 -Continue to monitor CMP -Continue with Zosyn for now with IV fluids 125 mL an hour Slurred speech and lethargy, likely acute metabolic encephalopathy vs CVA/TIA, now resolved -Neurology consulted, recs pending -Carotid duplex unremarkable -Continue with Coumadin for A. fib -Speech and swallow evaluation -PT OT evaluation -Continue with cardiac monitoring -Fall precautions Persistent atrial fibrillation -Continue with Coumadin with INR monitoring Diabetes mellitus -Lispro insulin sliding scale with blood glucose monitoring Hypertension, hyperlipidemia, hypothyroidism -Continue with home medications DVT prophylaxis -Coumadin Discussed with: Patient, Son Anticipated discharge date: 05/23/[address]: Home A total of 30 minutes was spent on the care of this complex patient more than 50% of the time was spent in counseling and care coordination.
--- NOTE | 2019-05-21 10:14 | P.PN ---
Progress Note - Text Progress Note Date: 05/21/19 Advanced Care Planning Active Diagnosis: Sepsis, resolved Acute metabolic encephalopathy, resolved R/o ACS and CVA A-fib Persons present: Patient, Son Summary: Discussed the patient's goals of care in extensive detail with the patient and her son. Discussed CPR and life support. The patient noted that she has lived a long and happy life, and would like to continue her remaining time "without any machines". The patient stated that she would NOT like to undergo CPR since she feels that she would like to go peacefully when her time has come. She further stated that under no circumstance would she wish to be placed on a ventilator. She expressed her strong desires to not be kept alive via Life-support. The son at the bedside noted that her current wishes are in line with her previously expressed wishes throughout her life. Will make the patient DNR/DNI. Time spent: Total time spent face to face in education and discussion directly related to advanced care plannin minutes
--- NOTE | 2019-05-21 10:31 | P.GSCN ---
History of Present Illness Consult date: 05/21/19 Reason for Consult: Choledocholithiasis History of present illness: This is an 88-year-old female with a history of gallstones. Patient was mild complaints of nausea and abdominal pain. She is worked up found evidence of choledocholithiasis. Patient had an admission a month ago for similar problem. GI has been consult for ERCP. Past Medical History Past Medical History: Atrial Fibrillation, Hyperlipidemia, Hypertension, Thyroid Disorder History of Any Multi-Drug Resistant Organisms: None Reported Past Surgical History: Orthopedic Surgery Past Anesthesia/Blood Transfusion Reactions: No Reported Reaction Past Psychological History: No Psychological Hx Reported Smoking Status: Never smoker Past Alcohol Use History: Occasional Past Drug Use History: None Reported - Past Family History Daughter(s) Family Medical History: Cancer, Thyroid Disorder Medications and Allergies Home Medications Medication Instructions Recorded Confirmed Type Aspirin 81 mg PO HS 04/14/16 05/20/19 History Digoxin [Lanoxin] 125 mcg PO DAILY 04/14/16 05/20/19 History Levothyroxine Sodium [Synthroid] 50 mcg PO DAILY 04/14/16 05/20/19 History Metoprolol Tartrate [Lopressor] 50 mg PO BID 04/14/16 05/20/19 History Simvastatin [Zocor] 10 mg PO HS 04/14/16 05/20/19 History Warfarin [Coumadin] 7.5 mg PO MOWESA 04/14/16 05/20/19 History Potassium Chloride 20 meq PO DAILY 04/14/19 05/20/19 History Warfarin Sodium [Coumadin] 5 mg PO SUTUTHFR 04/14/19 05/20/19 History Furosemide [Lasix] 20 mg PO Q48H 05/20/19 05/20/19 History Furosemide [Lasix] 40 mg PO Q48H 05/20/19 05/20/19 History Losartan Potassium 50 mg PO DAILY 05/20/19 05/20/19 History Pramipexole [Mirapex] 0.25 mg PO HS 05/20/19 05/20/19 History Allergies Allergy/AdvReac Type Severity Reaction Status Date / Time No Known Allergies Allergy Verified 05/20/19 15:05 Surgical - Exam Vital Signs Temp Pulse Resp BP Pulse Ox 98.5 F 68 18 95/58 98 05/20/19 14:45 05/20/19 14:45 05/20/19 14:45 05/20/19 14:45 05/20/19 14:45 - General well developed, well nourished, no distress - Eyes PERRL - ENT normal pinna - Neck no masses - Respiratory normal expansion - Cardiovascular Rhythm: regular - Abdomen Mild epigastric pain Abdomen: soft Results - Labs 05/21/19 06:32 05/21/19 06:32 Abnormal Lab Results - Last 24 Hours (Table) 05/20/19 05/20/19 05/20/19 Range/Units 15:16 15:24 15:24 WBC 19.3 H (3.8-10.6) k/uL Hgb (11.4-16.0) gm/dL Neutrophils # 18.0 H (1.3-7.7) k/uL Lymphocytes # 0.5 L (1.0-4.8) k/uL PT (9.0-12.0) sec INR (<1.2) APTT (22.0-30.0) sec Potassium (3.5-5.1) mmol/L Chloride (98-107) mmol/L BUN 24 H (7-17) mg/dL Glucose 172 H (74-99) mg/dL POC Glucose (mg/dL) 173 H (75-99) mg/dL Calcium (8.4-10.2) mg/dL Total Bilirubin 2.8 H (0.2-1.3) mg/dL AST 386 H (14-36) U/L ALT 304 H (9-52) U/L Alkaline Phosphatase 214 H (38-126) U/L Total Protein 6.1 L (6.3-8.2) g/dL Albumin (3.5-5.0) g/dL HDL Cholesterol (40-60) mg/dL Urine Blood (Negative) Urine Bacteria (None) /hpf 05/20/19 05/20/19 05/21/19 Range/Units 15:24 16:12 06:32 WBC 11.1 H (3.8-10.6) k/uL Hgb 11.3 L (11.4-16.0) gm/dL Neutrophils # 9.6 H (1.3-7.7) k/uL Lymphocytes # 0.8 L (1.0-4.8) k/uL PT 28.5 H (9.0-12.0) sec INR 3.0 H (<1.2) APTT 36.8 H (22.0-30.0) sec Potassium (3.5-5.1) mmol/L Chloride (98-107) mmol/L BUN (7-17) mg/dL Glucose (74-99) mg/dL POC Glucose (mg/dL) (75-99) mg/dL Calcium (8.4-10.2) mg/dL Total Bilirubin (0.2-1.3) mg/dL AST (14-36) U/L ALT (9-52) U/L Alkaline Phosphatase (38-126) U/L Total Protein (6.3-8.2) g/dL Albumin (3.5-5.0) g/dL HDL Cholesterol (40-60) mg/dL Urine Blood Trace H (Negative) Urine Bacteria Rare H (None) /hpf 05/21/19 05/21/19 Range/Units 06:32 06:32 WBC (3.8-10.6) k/uL Hgb (11.4-16.0) gm/dL Neutrophils # (1.3-7.7) k/uL Lymphocytes # (1.0-4.8) k/uL PT 24.4 H (9.0-12.0) sec INR 2.5 H (<1.2) APTT (22.0-30.0) sec Potassium 3.1 L (3.5-5.1) mmol/L Chloride 110 H (98-107) mmol/L BUN 18 H (7-17) mg/dL Glucose (74-99) mg/dL POC Glucose (mg/dL) (75-99) mg/dL Calcium 8.0 L (8.4-10.2) mg/dL Total Bilirubin 3.2 H (0.2-1.3) mg/dL AST 185 H (14-36) U/L ALT 212 H (9-52) U/L Alkaline Phosphatase 177 H (38-126) U/L Total Protein 5.3 L (6.3-8.2) g/dL Albumin 3.0 L (3.5-5.0) g/dL HDL Cholesterol 39 L (40-60) mg/dL Urine Blood (Negative) Urine Bacteria (None) /hpf Diabetes panel 05/20/19 05/21/19 Range/Units 15:24 06:32 Sodium 138 142 (137-145) mmol/L Potassium 3.8 3.1 L (3.5-5.1) mmol/L Chloride 103 110 H (98-107) mmol/L Carbon Dioxide 26 24 (22-30) mmol/L BUN 24 H 18 H (7-17) mg/dL Creatinine 0.82 0.76 (0.52-1.04) mg/dL Glucose 172 H 88 (74-99) mg/dL Calcium 9.0 8.0 L (8.4-10.2) mg/dL AST 386 H 185 H (14-36) U/L ALT 304 H 212 H (9-52) U/L Alkaline Phosphatase 214 H 177 H (38-126) U/L Total Protein 6.1 L 5.3 L (6.3-8.2) g/dL Albumin 3.7 3.0 L (3.5-5.0) g/dL Triglycerides 105 (<150) mg/dL HDL Cholesterol 39 L (40-60) mg/dL Calcium panel 05/20/19 05/21/19 Range/Units 15:24 06:32 Calcium 9.0 8.0 L (8.4-10.2) mg/dL Albumin 3.7 3.0 L (3.5-5.0) g/dL Pituitary panel 05/20/19 05/21/19 Range/Units 15:24 06:32 Sodium 138 142 (137-145) mmol/L Potassium 3.8 3.1 L (3.5-5.1) mmol/L Chloride 103 110 H (98-107) mmol/L Carbon Dioxide 26 24 (22-30) mmol/L BUN 24 H 18 H (7-17) mg/dL Creatinine 0.82 0.76 (0.52-1.04) mg/dL Glucose 172 H 88 (74-99) mg/dL Calcium 9.0 8.0 L (8.4-10.2) mg/dL Adrenal panel 05/20/19 05/21/19 Range/Units 15:24 06:32 Sodium 138 142 (137-145) mmol/L Potassium 3.8 3.1 L (3.5-5.1) mmol/L Chloride 103 110 H (98-107) mmol/L Carbon Dioxide 26 24 (22-30) mmol/L BUN 24 H 18 H (7-17) mg/dL Creatinine 0.82 0.76 (0.52-1.04) mg/dL Glucose 172 H 88 (74-99) mg/dL Calcium 9.0 8.0 L (8.4-10.2) mg/dL Total Bilirubin 2.8 H 3.2 H (0.2-1.3) mg/dL AST 386 H 185 H (14-36) U/L ALT 304 H 212 H (9-52) U/L Alkaline Phosphatase 214 H 177 H (38-126) U/L Total Protein 6.1 L 5.3 L (6.3-8.2) g/dL Albumin 3.7 3.0 L (3.5-5.0) g/dL - Imaging Additional studies: All shows was evidence of cholelithiasis Assessment and Plan Assessment: Cholelithiasis Cholecystitis Patient will undergo laparoscopic cholecystectomy once her liver function tests have returned to normal. GI has been consult for possible ERCP.
--- NOTE | 2019-05-21 11:50 | MR ---
EXAMINATION TYPE: MR brain wo con DATE OF EXAM: 05/21/2019 11:42 AM. COMPARISON: NONE. HISTORY: Confusion. Technique: Multiplanar, multiecho imaging of the brain was obtained without intravenous contrast. FINDINGS: There are generalized changes of sulcal prominence and ventriculomegaly, compatible with a trophic change. There is mild atrophy of the corpus callosum. Midline structures are otherwise unrema rkable. There is a normal craniocervical junction. Echoplanar diffusion imaging is normal. There are normal vascular flow voids. There is minimal mucoperiosteal thickening involving the ethmoid air cells bilaterally. The orbits are normal. There is no evidence of a CP angle mass lesion. There is both punctate and confluent periventricular white matter change on the FLAIR dataset likely a combination of small vessel disease and chronic ischemic change. There is no acute focal lesion, ma ss effect or midline shift. I do not see evidence of intracranial blood. IMPRESSION: 1. NO ACUTE INTRACRANIAL ABNORMALITY. 2. BOTH PUNCTATE AND CONFLUENT FLAIR LESIONS MOST LIKELY SECONDARY TO SMALL VESSEL DISEASE AND CHRONI C WHITE MATTER ISCHEMIC CHANGE 3. MINIMAL, CHRONIC MUCOPERIOSTEAL THICKENING INVOLVING THE ETHMOID SINUSES.
[2019-05-21 12:35] LABS: Glucose,Whole Blood 79 mg/dL (75-99)
[2019-05-21] MEDS ORDERED: PHYTONADIONE 10 MG in SODIUM CHLORIDE 0.9% 50 ML IVPB STA (15:28)
[2019-05-21 17:27] LABS: Glucose,Whole Blood 68 mg/dL (75-99)
[2019-05-21] MEDS ORDERED: WARFARIN 7.5 MG TAB PO SCH (18:00)
[2019-05-21] MEDS: ATORVASTATIN 10 MG TAB PO SCH (20:24)
[2019-05-21] MEDS: ASPIRIN 81 MG PO SCH (20:25)
[2019-05-21] MEDS: PRAMIPEXOLE 0.25 MG TAB PO SCH (20:33)
[2019-05-21 20:39] LABS: Glucose,Whole Blood 75 mg/dL (75-99)
--- NOTE | 2019-05-21 20:45 | P.CONS ---
History of Present Illness - Reason for Consult Consult date: 05/21/19 Cholangitis, choledocholithiasis Requesting physician: Harpreet Leone - Chief Complaint Altered mental status, weakness - History of Present Illness 88-year-old female with a medical history significant for atrial fibrillation on Coumadin therapy, hypertension, hyperlipidemia, diabetes mellitus and cholelithiasis presented to the hospital with complaints of weakness and let hargy. The patient was found by her son in bed and described as lethargic and confused. She was brought to the emergency department for further evaluation where she was also found to be hypotensive. Initial laboratory evaluation in the emergency department was significant for leukocytosis of 19.3, INR 3, total bilirubin 2.8, alkaline phosphatase 214, AST 386, and ALT 304. Computed tomography scan of the brain was unremarkable. She undergo ultrasound of the gallbladder with findings of a dilated common bile duct and multiple gallstones with no CBD stone noted. Patient had similar presentation in April at which time MRI of the abdomen was performed and there was findings of cholelithiasis and choledocholithiasis. Clinically the patient improved and labs also trended down and at that time her decision was for discharge with follow-up with gastroenterology. Currently she is seen lying in bed reporting improvement in her symptoms overall, she is much more clear thought and less weak. Review of Systems REVIEW OF SYSTEMS: CONSTITUTIONAL: Denies any fevers, does report weakness prior to presentation, weight loss due to decreased oral intake. CARDIOVASCULAR: Denies any chest pain, palpitations high or low blood pressures RESPIRATORY: Denies any shortness of breath, hemoptysis or cough. GENITOURINARY: No dysuria or hematuria. MUSCULOSKELETAL: No weakness reported. SKIN: Denies any new rashes or lesions, jaundice or pallor. PSYCHIATRIC: Denies any depression or anxiety. NEUROLOGY: Denies headache, denies any new focal deficits, mentation is improved since presentation. EARS/NOSE/THROAT: No recent hearing change, congestion, nasal discharge or sore throat. EYES: No pain in eyes, discharge or change in vision. GASTROINTESTINAL: As per HPI. Past Medical History Past Medical History: Atrial Fibrillation, Hyperlipidemia, Hypertension, Thyroid Disorder History of Any Multi-Drug Resistant Organisms: None Reported Past Surgical History: Orthopedic Surgery Past Anesthesia/Blood Transfusion Reactions: No Reported Reaction Past Psychological History: No Psychological Hx Reported Smoking Status: Never smoker Past Alcohol Use History: Occasional Past Drug Use History: None Reported - Past Family History Daughter(s) Family Medical History: Cancer, Thyroid Disorder Medications and Allergies Home Medications Medication Instructions Recorded Confirmed Type Aspirin 81 mg PO HS 04/14/16 05/20/19 History Digoxin [Lanoxin] 125 mcg PO DAILY 04/14/16 05/20/19 History Levothyroxine Sodium [Synthroid] 50 mcg PO DAILY 04/14/16 05/20/19 History Metoprolol Tartrate [Lopressor] 50 mg PO BID 04/14/16 05/20/19 History Simvastatin [Zocor] 10 mg PO HS 04/14/16 05/20/19 History Warfarin [Coumadin] 7.5 mg PO MOWESA 04/14/16 05/20/19 History Potassium Chloride 20 meq PO DAILY 04/14/19 05/20/19 History Warfarin Sodium [Coumadin] 5 mg PO SUTUTHFR 04/14/19 05/20/19 History Furosemide [Lasix] 20 mg PO Q48H 05/20/19 05/20/19 History Furosemide [Lasix] 40 mg PO Q48H 05/20/19 05/20/19 History Losartan Potassium 50 mg PO DAILY 05/20/19 05/20/19 History Pramipexole [Mirapex] 0.25 mg PO HS 05/20/19 05/20/19 History Allergies Allergy/AdvReac Type Severity Reaction Status Date / Time No Known Allergies Allergy Verified 05/20/19 15:05 Physical Exam Vitals: Vital Signs Temp Pulse Pulse Resp BP BP Pulse Ox 05/21/19 13:13 97.9 F 85 17 108/64 95 05/21/19 08:00 89 16 05/21/19 04:56 97.6 F 89 16 107/59 94 L 05/21/19 00:00 16 05/20/19 22:06 98.2 F 88 16 119/56 100 05/20/19 21:10 73 18 94/67 97 05/20/19 20:50 77 15 95/50 94 L 05/20/19 20:40 68 20 85/60 95 05/20/19 19:40 78 19 92/60 96 05/20/19 19:20 66 14 95/50 96 05/20/19 19:10 67 31 H 95/50 95 05/20/19 19:00 66 24 103/64 97 05/20/19 15:23 96 05/20/19 14:45 98.5 F 68 18 95/58 98 Intake and Output 05/20/19 05/21/19 05/21/19 22:59 06:59 14:59 Intake Total 200 590 Balance 200 590 Intake: Intake, IV Titration 200 Amount Piperacillin-Tazobactam 3 100 .375 gm In Sodium Chloride 0.9% 100 ml @ 25 mls/hr IVPB Q8H YULISSA Rx#: [id number] Sodium Chloride 0.9% 1, 100 000 ml @ 125 mls/hr IV . Q8H YULISSA Rx#:[id number] Oral 590 Other: # Voids 1 2 2 On physical examination, patient appears comfortable in no apparent distress. HEAD: Normocephalic, atraumatic. EYES: No scleral icterus. No conjunctival injection. MOUTH: No lesions, tongue midline. NECK: Trachea midline, no gross abnormalities. CHEST: Decreased air entry bilaterally. HEART: Irregularly irregular. ABDOMEN: Soft, obese. Bowel sounds are positive. No organomegaly. No guarding or rigidity. EXTREMITIES: No pedal edema. SKIN: No rashes, no jaundice. NEUROLOGIC: Alert and oriented x3. No focal deficits. Results CBC & Chem 7: 05/21/19 06:32 05/21/19 06:32 Labs: Abnormal Lab Results - Last 24 Hours (Table) 05/20/19 05/20/19 05/20/19 Range/Units 15:16 15:24 15:24 WBC 19.3 H (3.8-10.6) k/uL Hgb (11.4-16.0) gm/dL Neutrophils # 18.0 H (1.3-7.7) k/uL Lymphocytes # 0.5 L (1.0-4.8) k/uL PT (9.0-12.0) sec INR (<1.2) APTT (22.0-30.0) sec Potassium (3.5-5.1) mmol/L Chloride (98-107) mmol/L BUN 24 H (7-17) mg/dL Glucose 172 H (74-99) mg/dL POC Glucose (mg/dL) 173 H (75-99) mg/dL Calcium (8.4-10.2) mg/dL Total Bilirubin 2.8 H (0.2-1.3) mg/dL AST 386 H (14-36) U/L ALT 304 H (9-52) U/L Alkaline Phosphatase 214 H (38-126) U/L Total Protein 6.1 L (6.3-8.2) g/dL Albumin (3.5-5.0) g/dL HDL Cholesterol (40-60) mg/dL Urine Blood (Negative) Urine Bacteria (None) /hpf 05/20/19 05/20/19 05/21/19 Range/Units 15:24 16:12 06:32 WBC 11.1 H (3.8-10.6) k/uL Hgb 11.3 L (11.4-16.0) gm/dL Neutrophils # 9.6 H (1.3-7.7) k/uL Lymphocytes # 0.8 L (1.0-4.8) k/uL PT 28.5 H (9.0-12.0) sec INR 3.0 H (<1.2) APTT 36.8 H (22.0-30.0) sec Potassium (3.5-5.1) mmol/L Chloride (98-107) mmol/L BUN (7-17) mg/dL Glucose (74-99) mg/dL POC Glucose (mg/dL) (75-99) mg/dL Calcium (8.4-10.2) mg/dL Total Bilirubin (0.2-1.3) mg/dL AST (14-36) U/L ALT (9-52) U/L Alkaline Phosphatase (38-126) U/L Total Protein (6.3-8.2) g/dL Albumin (3.5-5.0) g/dL HDL Cholesterol (40-60) mg/dL Urine Blood Trace H (Negative) Urine Bacteria Rare H (None) /hpf 05/21/19 05/21/19 Range/Units 06:32 06:32 WBC (3.8-10.6) k/uL Hgb (11.4-16.0) gm/dL Neutrophils # (1.3-7.7) k/uL Lymphocytes # (1.0-4.8) k/uL PT 24.4 H (9.0-12.0) sec INR 2.5 H (<1.2) APTT (22.0-30.0) sec Potassium 3.1 L (3.5-5.1) mmol/L Chloride 110 H (98-107) mmol/L BUN 18 H (7-17) mg/dL Glucose (74-99) mg/dL POC Glucose (mg/dL) (75-99) mg/dL Calcium 8.0 L (8.4-10.2) mg/dL Total Bilirubin 3.2 H (0.2-1.3) mg/dL AST 185 H (14-36) U/L ALT 212 H (9-52) U/L Alkaline Phosphatase 177 H (38-126) U/L Total Protein 5.3 L (6.3-8.2) g/dL Albumin 3.0 L (3.5-5.0) g/dL HDL Cholesterol 39 L (40-60) mg/dL Urine Blood (Negative) Urine Bacteria (None) /hpf US - abdomen: report reviewed (Ultrasound abdomen with findings of gallstones and a dilated common bile duct) Assessment and Plan (1) Choledocholithiasis Narrative/Plan: 88-year-old female with multiple medical comorbidities including atrial fibrillation on Coumadin therapy who presents with altered mental status and weakness. Patient previously seen with abdominal pain and elevated liver enzymes and evaluated with MRI of the abdomen in 04/2019 at which time choledocholithiasis was found. At that time the patient's liver enzymes had improved and clinically she was doing better and asking for discharge with fo llow-up with GI. She comes back to the hospital with elevation in her liver enzymes with a total bilirubin 2.8, alkaline phosphatase 214, AST 386 and ALTs 304 with leukocytosis on presentation with WBC 19 concerning for choledocholithiasis and cholangitis. Current Visit: Yes Status: Acute Code(s): K80.50 - CALCULUS OF BILE DUCT W/O CHOLANGITIS OR CHOLECYST W/O OBST SNOMED Code(s): 496866727 (2) Cholelithiasis Current Visit: Yes Status: Acute Code(s): K80.20 - CALCULUS OF GALLBLADDER W/O CHOLECYSTITIS W/O OBSTRUCTION SNOMED Code(s): 093741285 (3) Elevated liver enzymes Current Visit: Yes Status: Acute Code(s): R74.8 - ABNORMAL LEVELS OF OTHER SERUM ENZYMES SNOMED Code(s): 025336047 (4) Chronic atrial fibrillation Current Visit: No Status: Acute Code(s): I48.2 - CHRONIC ATRIAL FIBRILLATION SNOMED Code(s): 923433676 (5) Jaundice Current Visit: No Status: Acute Code(s): R17 - UNSPECIFIED JAUNDICE SNOMED Code(s): 96067343 Plan: Supportive care Clear liquid diet, nothing by mouth after midnight Continue to monitor CBC, CMP Continue antibiotic therapy Indocin ordered preprocedure Vitamin K given, continue to hold warfarin If INR cell elevated tomorrow additional dose of vitamin K should be given, and FFP ordered preop Plan for ERCP tomorrow in the early afternoon Thank you for allowing us to participate in the care of this patient we will continue to follow
[2019-05-22] MEDS: PIPERACILLIN-TAZOBACTAM 3.375 GM in SODIUM CHLORIDE 0.9% 100 ML IVPB SCH ×3 (04:13→20:25)
[2019-05-22] MEDS: LEVOTHYROXINE 50 MCG TAB PO SCH (04:14)
[2019-05-22] MEDS: SODIUM CHLORIDE 0.9% 1,000 ML IV SCH ×3 (04:14→20:25)
[2019-05-22] MEDS: INSULIN ASPART (NovoLOG) 100 UNIT/ML VIAL SQ SCH ×4 (07:18→21:43)
[2019-05-22 07:19] LABS: HCT 34.9 % (34.0-46.0); HGB 11.1 gm/dL (11.4-16.0); Hypochromasia Slight; MCH 28.2 pg (25.0-35.0); MCHC 31.8 g/dL (31.0-37.0); MCV 88.4 fL (80.0-100.0); Mean Platelet Volume 7.4; Platelet Count 167 k/uL (150-450); RBC 3.95 m/uL (3.80-5.40); RDW 14.3 % (11.5-15.5)
[2019-05-22] MEDS: HEPARIN SODIUM,PORCINE 5,000 UNIT/ML 1 ML VIAL SQ SCH ×2 (07:20→21:44)
[2019-05-22 07:25] LABS: INR 1.4 (<1.2); Prothrombin Time 13.8 sec (9.0-12.0)
[2019-05-22 07:31] LABS: Calcium 7.9 mg/dL (8.4-10.2); Potassium 3.5 mmol/L (3.5-5.1); Total Bilirubin 2.7 mg/dL (0.2-1.3); Total Protein 5.4 g/dL (6.3-8.2)
[2019-05-22] MEDS: PANTOPRAZOLE 40 MG/10 ML VIAL IV SCH (07:31)
[2019-05-22] MEDS: DIGOXIN 125 MCG TAB PO SCH (07:31)
[2019-05-22] MEDS: LOSARTAN 50 MG TAB PO SCH (07:31)
[2019-05-22] MEDS: METOPROLOL TARTRATE 50 MG TAB PO SCH ×2 (07:31→21:43)
[2019-05-22 07:34] LABS: Glucose,Whole Blood 80 mg/dL (75-99)
[2019-05-22] MEDS ORDERED: INDOMETHACIN 50MG SUPPOSITORY RECTAL ONE (11:00)
[2019-05-22 11:57] LABS: Glucose,Whole Blood 65 mg/dL (75-99)
--- NOTE | 2019-05-22 12:26 | P.PN ---
Subjective Progress Note Date: 05/22/19 Patient is an 88-year-old female with a PMH of A. fib on Coumadin, hypertension, hyperlipidemia, diabetes mellitus, who presented to the ED for slurred speech and lethargy. The history was supplemented by the son who had reported that he found her mother to be lethargic, and in bed confused on the day of presentation. The patient's BP on admission was 95/58. The patient underwent an extensive evaluation in the ED w/ leukocytosis of 19.3, INR of 3, AST 386, ALT 304, Bili total 2.8, Alk phos 214, and Troponin 0.018. Imaging w/ CT Brain was unremarkable and EKG revealed A-fib. Gallbladder US showed multiple gall-stones w/ mildly dilated bile ducts. No CBD stone was visualized. The patient was admitted to the medicine service for suspected acute cholangitis with rule out CVA and ACS. The patient's mentation returned to baseline the following day. GI was consulted and recommended ERCP for choledocholithiasis. The patient was seen and examined at the bedside on 04/22/2019. She was in good spirits and denied any active complaints. She denied abdominal pain, nausea, or vomiting. Denied fever, chills, chest pain, or SOB. She also denied weakness, numbness, or any speech abnormalities. The patient is scheduled to undergo ERCP later today. Objective - Vital Signs Vital signs: Vital Signs Temp 97.7 F 05/22/19 12:02 Pulse 73 05/22/19 11:14 Resp 18 05/22/19 11:14 BP 144/73 05/22/19 11:14 Pulse Ox 93 L 05/22/19 11:14 Intake & Output 05/21/19 05/22/19 05/22/19 18:59 06:59 18:59 Intake Total 1730 0 Balance 1730 0 Intake: Intake, IV Titration 900 Amount Phytonadione 10 mg In 400 Sodium Chloride 0.9% 50 ml @ 100 mls/hr IVPB ONCE STA Rx#:[id number] Sodium Chloride 0.9% 1, 500 000 ml @ 125 mls/hr IV . Q8H YULISSA Rx#:[id number] Oral 830 Blood Product 0 Ffp 24 Cpd Unit 0 [id number] Other: # Voids 1 1 1 # Bowel Movements 1 1 1 - Exam General: Non-toxic, pleasant elderly female in no acute distress, appears stated age, normal weight HEENT: NC/AT, anicteric sclerae, moist conjunctiva, no lid-lag, PERRLA Cardiovascular: S1/S2 wnl, no murmurs, rubs, or gallops Lungs: Clear to auscultation, normal respiratory effort, no accessory muscle use Abdominal: Soft, non-tender, non-distended, no guarding, rebound, or rigidity Skin: Warm, dry Extremities: No edema or contractures Psychiatric: Alert and oriented to person, place and time, appropriate affect Neuro: CN II-XII grossly intact, Strength 5/5 in all 4 extremities, Speech intact, Sensation to light touch grossly intact throughout - Labs CBC & Chem 7: 05/22/19 06:38 05/22/19 06:38 Labs: Abnormal Lab Results - Last 24 Hours (Table) 05/21/19 05/22/19 05/22/19 Range/Units 17:22 06:38 06:38 Hgb 11.1 L (11.4-16.0) gm/dL PT 13.8 H (9.0-12.0) sec INR 1.4 H (<1.2) Chloride (98-107) mmol/L Glucose (74-99) mg/dL POC Glucose (mg/dL) 68 L (75-99) mg/dL Calcium (8.4-10.2) mg/dL Total Bilirubin (0.2-1.3) mg/dL AST (14-36) U/L ALT (9-52) U/L Alkaline Phosphatase (38-126) U/L Total Protein (6.3-8.2) g/dL Albumin (3.5-5.0) g/dL 05/22/19 05/22/19 Range/Units 06:38 11:51 Hgb (11.4-16.0) gm/dL PT (9.0-12.0) sec INR (<1.2) Chloride 108 H (98-107) mmol/L Glucose 72 L (74-99) mg/dL POC Glucose (mg/dL) 65 L (75-99) mg/dL Calcium 7.9 L (8.4-10.2) mg/dL Total Bilirubin 2.7 H (0.2-1.3) mg/dL AST 95 H (14-36) U/L ALT 149 H (9-52) U/L Alkaline Phosphatase 172 H (38-126) U/L Total Protein 5.4 L (6.3-8.2) g/dL Albumin 3.0 L (3.5-5.0) g/dL Microbiology - Last 24 Hours (Table) 05/20/19 20:26 Blood Culture - Preliminary Blood No Growth after 24 hours Assessment and Plan Plan: Choledocholithiasis, sepsis resolved -GI recs appreciated, scheduled for ERCP today -AST and ALT downtrending with T bili improved -Continue to monitor CMP -Continue with Zosyn for now with IV fluids 75 mL an hour Slurred speech and lethargy, likely acute metabolic encephalopathy vs CVA/TIA, resolved -Neurology consulted, recs pending -Carotid duplex unremarkable -Coumadin being reversed for ERCP -Speech and swallow evaluation -PT OT evaluation -Continue with cardiac monitoring -Fall precautions Persistent atrial fibrillation -Coumadin being reversed for ERCP Diabetes mellitus -Lispro insulin sliding scale with blood glucose monitoring -Hypoglycemic precautions Hypertension, hyperlipidemia, hypothyroidism -Continue with home medications DVT prophylaxis -Coumadin Discussed with: Patient, Son Anticipated discharge date: 05/23/[address]: Home A total of 30 minutes was spent on the care of this complex patient more than 50% of the time was spent in counseling and care coordination.
--- NOTE | 2019-05-22 12:43 | P.PN ---
Progress Note - Text Progress Note Date: 05/22/19 The patient is resting comfortably in bed. She apparently is scheduled for ERCP today. On exam her vital signs are stable her abdomen soft. Choledocholithiasis with cholecystitis. Patient will undergo laparoscopic ostectomy this admission after ERCP
[2019-05-22 13:41] LABS: INR 1.1 (<1.2); Prothrombin Time 11.9 sec (9.0-12.0)
[2019-05-22 14:02] LABS: Glucose,Whole Blood 72 mg/dL (75-99)
[2019-05-22] MEDS ORDERED: LIDOCAINE 1% INJ 10MG/ML (20 ML MDV) ONE (14:45)
[2019-05-22] MEDS ORDERED: PROPOFOL 10 MG/ML 20 ML VIAL IV ONE (14:45)
[2019-05-22] MEDS ORDERED: ONDANSETRON 4 MG/2 ML VIAL ONE (14:45)
[2019-05-22] MEDS ORDERED: SUCCINYLCHOLINE CHLORIDE 100 MG/5 ML SYR IV ONE (14:45)
[2019-05-22] MEDS ORDERED: ePHEDrine SULFATE/0.9% NACL/PF 50 MG/5 ML SYRINGE IV ONE (14:45)
[2019-05-22] MEDS ORDERED: PHENYLEPHRINE-0.9% NACL SYG 1 MG/10 ML SYRINGE ONE (14:45)
[2019-05-22] MEDS ORDERED: fentaNYL (PF) 50 MCG/ML 2 ML AMP ONE (14:45)
[2019-05-22 15:08] LABS: Glucose,Whole Blood 89 mg/dL (75-99)
--- NOTE | 2019-05-22 16:25 | P.PCN ---
Date of Procedure: 05/22/19 Description of Procedure: Brief history: 88-year-old female with a medical history significant for atrial fibrillation on Coumadin therapy, hypertension, hyperlipidemia, diabetes mellitus and cholelithiasis presented to the hospital with complaints of weakness and lethargy. The patient was found by her son in bed and described as lethargic and confused. She was brought to the emergency department for further evaluation where she was also found to be hypotensive. Initial laboratory evaluation in the emergency department was significant for leukocytosis of 19.3, INR 3, total bilirubin 2.8, alkaline phosphatase 214, AST 386, and ALT 304. Computed tomography scan of the brain was unremarkable. She undergo ultrasound of the gallbladder with findings of a dilated common bile duct and multiple gallstones with no CBD stone noted. Patient had similar presentation in April at which time MRI of the abdomen was performed and there was findings of cholelithiasis and choledocholithiasis. Clinically the patient improved and labs also trended down and at that time her decision was for discharge with follow-up with gastroenterology. Currently she is seen lying in bed reporting improvement in her symptoms overall, she is much more clear thought and less weak. Procedure performed: ERCP with cholangiogram, sphincterotomy and balloon sweep for choledocholithiasis Preoperative diagnoses: Choledocholithiasis, cholangitis IV sedation per anesthesia Estimated blood loss: Minimal. Procedure: After informed consent was obtained from the patient and after the risks benefits and complications including bleeding perforation and pancreatitis explained in detail the patient was brought into the endoscopy unit. The patient was intubated, placed in prone position and sedation was administered by anesthesia under continuous monitoring. The Olympus side-viewing duodenoscope was then inserted into the mouth and esophagus intubated without any difficulty. The scope was gradually advanced into the stomach and duodenum. The major papilla was identified without any difficulty. The ampulla was found on the rim of the diverticula. The major papilla was cannulated with a sphincterotome and a wire was passed into the common bile duct. IV contrast was then injected and cholangiogram performed with findings of a diffusely dilated duct with a filling defect in the mid common bile duct. An 11 mm sphincterotomy was then performed using the sphincterotome. A balloon cannula was then exchanged over a wire for the sphincterotome after it was carefully removed. The balloon cannula was inflated first more proximally in the CBD and then more distally until the bifurcation to 11 mm and the duct was swept with findings of debris, a stone and bile. Any minimal bleeding was seen. The patient tolerated the procedure well. Impression: 1. ERCP with cholangiogram, sphincterotomy and balloon sweep productive of debris and a gallstone. Recommendations: The findings of this examination were discussed with the patient as well as a family. Okay for liquid diet, advance as tolerated. Continue to monitor liver enzymes. Further management per the surgical service. Continue to hold anticoagulation. Timing of cholecystectomy per the surgery team. Continue antibiotic therapy.
[2019-05-22] MEDS ORDERED: IV FLUID CONTINUATION 1,000 ML IV ONE ×2 (16:34)
[2019-05-22 16:47] LABS: Glucose,Whole Blood 94 mg/dL (75-99)
[2019-05-22] MEDS ORDERED: IV FLUID CONTINUATION 900 ML IV ONE (16:55)
[2019-05-22] MEDS ORDERED: IOHEXOL 300 MG/ML 50 ML BOTTLE MISCELLANE ONE (16:56)
[2019-05-22 20:14] LABS: Glucose,Whole Blood 172 mg/dL (75-99)
[2019-05-22] MEDS: ASPIRIN 81 MG PO SCH (21:43)
[2019-05-22] MEDS: ATORVASTATIN 10 MG TAB PO SCH (21:43)
[2019-05-22] MEDS: PRAMIPEXOLE 0.25 MG TAB PO SCH (21:44)
[2019-05-23] MEDS: PIPERACILLIN-TAZOBACTAM 3.375 GM in SODIUM CHLORIDE 0.9% 100 ML IVPB SCH ×3 (05:21→21:10)
[2019-05-23] MEDS: LEVOTHYROXINE 50 MCG TAB PO SCH (05:22)
[2019-05-23 06:54] LABS: Glucose,Whole Blood 117 mg/dL (75-99)
[2019-05-23] MEDS: INSULIN ASPART (NovoLOG) 100 UNIT/ML VIAL SQ SCH (08:07)
[2019-05-23] MEDS: PANTOPRAZOLE 40 MG/10 ML VIAL IV SCH (08:43)
[2019-05-23] MEDS: LOSARTAN 50 MG TAB PO SCH (08:43)
[2019-05-23] MEDS: DIGOXIN 125 MCG TAB PO SCH (08:44)
[2019-05-23] MEDS: HEPARIN SODIUM,PORCINE 5,000 UNIT/ML 1 ML VIAL SQ SCH ×2 (08:44→21:10)
[2019-05-23] MEDS: METOPROLOL TARTRATE 50 MG TAB PO SCH ×2 (08:48→21:10)
[2019-05-23 09:13] LABS: HCT 35.8 % (34.0-46.0); HGB 11.2 gm/dL (11.4-16.0); MCH 27.7 pg (25.0-35.0); MCHC 31.2 g/dL (31.0-37.0); MCV 88.9 fL (80.0-100.0); Mean Platelet Volume 6.9; Platelet Count 197 k/uL (150-450); RBC 4.02 m/uL (3.80-5.40); WBC 7.4 k/uL (3.8-10.6)
[2019-05-23 09:22] LABS: Prothrombin Time 10.7 sec (9.0-12.0)
--- NOTE | 2019-05-23 09:39 | P.PN ---
Subjective Progress Note Date: 05/23/19 Principal diagnosis: Choledocholithiasis Status post ERCP sphincterotomy stone removal. LFTs pending. No abdominal complaints. Afebrile. Objective - Vital Signs Vital signs: Vital Signs Temp 97.5 F L 05/23/19 04:47 Pulse 55 L 05/23/19 08:00 Resp 16 05/23/19 08:00 BP 117/69 05/23/19 04:47 Pulse Ox 93 L 05/23/19 04:47 Intake & Output 05/22/19 05/23/19 05/23/19 18:59 06:59 18:59 Intake Total 1468 1180 Balance 1468 1180 Intake: IV 650 Intake, IV Titration 500 Amount Sodium Chloride 0.9% 1, 500 000 ml @ 75 mls/hr IV . [id number] [facility] Rx#:[id number] Oral 1180 Blood Product 318 Ffp 24 Cpd Unit 318 [id number] Other: # Voids 1 2 2 # Bowel Movements 1 1 1 - Exam General appearance: The patient is alert, oriented, in no acute distress. HET: Head is normocephalic and atraumatic. Pupils are equal and reactive. Very mild scleral icterus. Oropharynx is clear without lesions. Neck: Supple without lymphadenopathy. Trachea midline. Heart: S1 S2. Regular rate and rhythm. Lungs: No crackles or wheezes are heard. Abdomen: Soft, nontender, nondistended with bowel sounds. No peritoneal signs. No palpable organomegaly or masses. Extremities: Normal skin color and turgor. No cyanosis, rash, ulceration, clubbing, or edema. Radial and pedal pulses are 2/4 bilaterally. Neurological: No focal deficits. Strength and sensation are grossly intact. - Labs CBC & Chem 7: 05/23/19 08:53 05/22/19 06:38 Labs: Abnormal Lab Results - Last 24 Hours (Table) 05/22/19 05/22/19 05/22/19 Range/Units 11:51 14:01 20:13 Hgb (11.4-16.0) gm/dL POC Glucose (mg/dL) 65 L 72 L 172 H (75-99) mg/dL 05/23/19 05/23/19 Range/Units 06:53 08:53 Hgb 11.2 L (11.4-16.0) gm/dL POC Glucose (mg/dL) 117 H (75-99) mg/dL Microbiology - Last 24 Hours (Table) 05/20/19 20:26 Blood Culture - Preliminary Blood No Growth after 48 hours Assessment and Plan (1) Choledocholithiasis Current Visit: Yes Status: Acute Code(s): K80.50 - CALCULUS OF BILE DUCT W/O CHOLANGITIS OR CHOLECYST W/O OBST SNOMED Code(s): 061843201 (2) S/P ERCP Current Visit: Yes Status: Acute Code(s): Z98.890 - OTHER SPECIFIED POSTPROCEDURAL STATES SNOMED Code(s): 255748251 (3) Cholelithiasis Current Visit: Yes Status: Acute Code(s): K80.20 - CALCULUS OF GALLBLADDER W/O CHOLECYSTITIS W/O OBSTRUCTION SNOMED Code(s): 854043516 (4) Elevated liver enzymes Current Visit: Yes Status: Acute Code(s): R74.8 - ABNORMAL LEVELS OF OTHER SERUM ENZYMES SNOMED Code(s): 852903316 (5) Chronic atrial fibrillation Current Visit: No Status: Acute Code(s): I48.2 - CHRONIC ATRIAL FIBRILLATION SNOMED Code(s): 112216669 Plan: 1. CMP pending if improved continue with present medical therapy. We'll follow on an as-needed basis. General surgery following. Assessment and plan a care discussed with Dr. Kruger
[2019-05-23 09:44] LABS: Albumin 3.2 g/dL (3.5-5.0); Potassium 3.3 mmol/L (3.5-5.1); Total Bilirubin 2.2 mg/dL (0.2-1.3); Total Protein 5.8 g/dL (6.3-8.2)
[2019-05-23 11:26] LABS: Glucose,Whole Blood 128 mg/dL (75-99)
--- NOTE | 2019-05-23 12:18 | P.PN ---
Subjective Progress Note Date: 05/23/19 CHIEF COMPLAINT: elevated liver enzymes HISTORY OF PRESENT ILLNESS: patient is status post ERCP with cholangiogram, sphincterotomy, and balloon sweep productive of debris and gallstone. Patient denies abdominal pain this morning. Tolerating clear liquid diet. bilirubin 2.2. AST 53 ALT 113. WBC 7.4. Hemoglobin 11.2 PHYSICAL EXAM: VITAL SIGNS: Reviewed. GENERAL: Well-developed in no acute distress. HEENT: No sclera icterus. Extraocular movements grossly intact. Moist buccal mucosa. Head is atraumatic, normocephalic. ABDOMEN: Soft. Nondistended. Nontender. NEUROLOGIC: Alert and oriented. Cranial nerves II through XII grossly intact. ASSESSMENT: 1. Choledocholithiasis 2. Acute cholecystitis 3. Elevated liver enzymes PLAN: Continue to hold anticoagulation. Clear liquid diet today. Nothing by mouth after midnight. laparoscopic cholecystectomy tomorrow with Dr. Gallardo Nurse practitioner note has been reviewed by physician. Signing provider agrees with the documented findings, assessment, and plan of care. Objective - Vital Signs Vital signs: Vital Signs Temp 97.5 F L 05/23/19 04:47 Pulse 55 L 05/23/19 08:00 Resp 16 05/23/19 08:00 BP 117/69 05/23/19 04:47 Pulse Ox 93 L 05/23/19 04:47 Intake & Output 05/22/19 05/23/19 05/23/19 18:59 06:59 18:59 Intake Total 1468 1180 Balance 1468 1180 Intake: IV 650 Intake, IV Titration 500 Amount Sodium Chloride 0.9% 1, 500 000 ml @ 75 mls/hr IV . [id number] [facility] Rx#:[id number] Oral 1180 Blood Product 318 Ffp 24 Cpd Unit 318 [id number] Other: # Voids 1 2 2 # Bowel Movements 1 1 1 - Labs CBC & Chem 7: 05/23/19 08:53 05/23/19 08:53 Labs: Abnormal Lab Results - Last 24 Hours (Table) 05/22/19 05/22/19 05/23/19 Range/Units 14:01 20:13 06:53 Hgb (11.4-16.0) gm/dL Potassium (3.5-5.1) mmol/L Glucose (74-99) mg/dL POC Glucose (mg/dL) 72 L 172 H 117 H (75-99) mg/dL Calcium (8.4-10.2) mg/dL Total Bilirubin (0.2-1.3) mg/dL AST (14-36) U/L ALT (9-52) U/L Alkaline Phosphatase (38-126) U/L Total Protein (6.3-8.2) g/dL Albumin (3.5-5.0) g/dL 05/23/19 05/23/19 05/23/19 Range/Units 08:53 08:53 11:25 Hgb 11.2 L (11.4-16.0) gm/dL Potassium 3.3 L (3.5-5.1) mmol/L Glucose 144 H (74-99) mg/dL POC Glucose (mg/dL) 128 H (75-99) mg/dL Calcium 8.0 L (8.4-10.2) mg/dL Total Bilirubin 2.2 H (0.2-1.3) mg/dL AST 53 H (14-36) U/L ALT 113 H (9-52) U/L Alkaline Phosphatase 173 H (38-126) U/L Total Protein 5.8 L (6.3-8.2) g/dL Albumin 3.2 L (3.5-5.0) g/dL Microbiology - Last 24 Hours (Table) 05/20/19 20:26 Blood Culture - Preliminary Blood No Growth after 48 hours
[2019-05-23] MEDS: SODIUM CHLORIDE 0.9% 1,000 ML IV SCH (12:55)
--- NOTE | 2019-05-23 13:11 | XR ---
EXAMINATION TYPE: XR chest 2V DATE OF EXAM: 05/23/2019 COMPARISON: 05/20/2019 HISTORY: Shortness of breath TECHNIQUE: Frontal and lateral views of the chest are obtained. FINDINGS: Scattered senescent parenchymal changes noted. Hyperinflation compatible with COPD. Small bilateral pleural effusions and basilar atelectasis and/or infiltrates. Heart size is stable. Mediastinal structures are stable and grossly unremarkable. No evidence for hilar prominence. Degenerative changes dorsal spine. IMPRESSION: 1. Small bilateral pleural effusions and basilar atelectasis and/or infiltrates.
[2019-05-23 17:02] LABS: Glucose,Whole Blood 92 mg/dL (75-99)
[2019-05-23 20:11] LABS: Glucose,Whole Blood 137 mg/dL (75-99)
--- NOTE | 2019-05-23 21:04 | P.PN ---
Subjective Progress Note Date: 05/23/19 (Charting patient seen and 12:00) Principal diagnosis: Abdominal pain Patient is a 58-year-old female with past medical history of atrial fibrillation on Coumadin therapy, hypertension, dyslipidemia, and diabetes who presented to the emergency department with complaints of slurred speech and lethargy. In the ER she underwent an extensive evaluation. She was hypotensive on admission with a blood pressure 95/58. She was noted to have an elevated white blood cell count 19.3, INR 3, AST 386, ALT 304 and total bilirubin of 2.8. CT of the brain was unremarkable, EKG revealed atrial fibrillation. Gallbladder ultrasound showed multiple gallstones with mildly dilated ducts. No common bile duct stone was visualized. Patient was admitted for further monitoring and care of her acute cholangitis. She was started on IV Zosyn. GI was consulted and she underwent ERCP on 05/22 with removal of stone. Surgery was consulted and plan is for lap rachell on 05/24. Patient seen and examined at bedside. She denies any chest pain, shortness of breath, nausea, or abdominal pain. Feeling hungry and asking to eat. No other complaints currently. Objective - Vital Signs Vital signs: Vital Signs Temp 97.9 F 05/23/19 12:22 Pulse 62 05/23/19 16:00 Resp 18 05/23/19 16:00 BP 99/60 05/23/19 12:22 Pulse Ox 94 L 05/23/19 12:22 Intake & Output 05/23/19 05/23/19 05/24/19 06:59 18:59 06:59 Intake Total 1180 600 Balance 1180 600 Intake: Intake, IV Titration 600 Amount Sodium Chloride 0.9% 1, 600 000 ml @ 75 mls/hr IV . [id number] [facility] Rx#:[id number] Oral 1180 Other: # Voids 2 2 # Bowel Movements 1 1 - Exam General: non toxic, no distress, appears at stated age Derm: warm, dry Head: atraumatic, normocephalic, symmetric Eyes: EOMI, no lid lag, anicteric sclera Mouth: no lip lesion, mucus membranes moist Cardiovascular: S1S2 reg, no murmur, positive posterior tibial pulse bilateral, Lungs: Crackles bilateral bases, no rales , no accessory muscle use Abdominal: soft, nontender to palpation, no guarding, no appreciable organomegaly Ext: no gross muscle atrophy, trace edema, no contractures Neuro: CN II-XI grossly intact, no focal neuro deficits Psych: Alert, oriented, appropriate affect - Labs CBC & Chem 7: 05/23/19 08:53 05/23/19 08:53 Labs: Abnormal Lab Results - Last 24 Hours (Table) 05/23/19 05/23/19 05/23/19 Range/Units 06:53 08:53 08:53 Hgb 11.2 L (11.4-16.0) gm/dL Potassium 3.3 L (3.5-5.1) mmol/L Glucose 144 H (74-99) mg/dL POC Glucose (mg/dL) 117 H (75-99) mg/dL Calcium 8.0 L (8.4-10.2) mg/dL Total Bilirubin 2.2 H (0.2-1.3) mg/dL AST 53 H (14-36) U/L ALT 113 H (9-52) U/L Alkaline Phosphatase 173 H (38-126) U/L Total Protein 5.8 L (6.3-8.2) g/dL Albumin 3.2 L (3.5-5.0) g/dL 05/23/19 05/23/19 Range/Units 11:25 20:09 Hgb (11.4-16.0) gm/dL Potassium (3.5-5.1) mmol/L Glucose (74-99) mg/dL POC Glucose (mg/dL) 128 H 137 H (75-99) mg/dL Calcium (8.4-10.2) mg/dL Total Bilirubin (0.2-1.3) mg/dL AST (14-36) U/L ALT (9-52) U/L Alkaline Phosphatase (38-126) U/L Total Protein (6.3-8.2) g/dL Albumin (3.5-5.0) g/dL Microbiology - Last 24 Hours (Table) 05/20/19 20:26 Blood Culture - Preliminary Blood No Growth after 48 hours Assessment and Plan Assessment: Acute cholecystitis with choledocholithiasis with sepsis -Status post ERCP -Plan is for cholecystectomy tomorrow -Continue with Zosyn -Nothing by mouth after midnight -Pain control, antiemetics Toxic metabolic encephalopathy -Await neurology recommendations, carotid duplex unremarkable, Coumadin on hold for ERCP -PT/OT/speech racks -MRI brain Persistent A. fib -Telemetry monitoring, Coumadin on hold secondary procedure Diabetes mellitus type 2 -Discontinue sliding scale insulin as patient has had blood sugars are all within normal range -Continue Accu-Cheks due to nothing by mouth status Chronic conditions: Hypertension, dyslipidemia, and hypothyroidism DVT prophylaxis:Heparin Discussed with: Patient, nursing Anticipated discharge: 2-[address]: home A total of 35 minutes was spent on the care of this complex patient more than 50% of the time was spent in counseling and care coordination.
[2019-05-23] MEDS: ATORVASTATIN 10 MG TAB PO SCH (21:10)
[2019-05-23] MEDS: ASPIRIN 81 MG PO SCH (21:10)
[2019-05-23] MEDS: PRAMIPEXOLE 0.25 MG TAB PO SCH (21:10)
[2019-05-24] MEDS: PIPERACILLIN-TAZOBACTAM 3.375 GM in SODIUM CHLORIDE 0.9% 100 ML IVPB SCH ×3 (03:02→22:06)
[2019-05-24] MEDS: LEVOTHYROXINE 50 MCG TAB PO SCH (05:50)
[2019-05-24 07:02] LABS: Glucose,Whole Blood 96 mg/dL (75-99)
[2019-05-24] MEDS: METOPROLOL TARTRATE 50 MG TAB PO SCH ×2 (08:57→22:06)
[2019-05-24] MEDS: PANTOPRAZOLE 40 MG/10 ML VIAL IV SCH (08:57)
[2019-05-24] MEDS: DIGOXIN 125 MCG TAB PO SCH (08:57)
[2019-05-24] MEDS: LOSARTAN 50 MG TAB PO SCH (09:05)
[2019-05-24] MEDS: HEPARIN SODIUM,PORCINE 5,000 UNIT/ML 1 ML VIAL SQ SCH ×3 (09:05→21:21)
[2019-05-24 09:28] LABS: HCT 36.8 % (34.0-46.0); HGB 11.6 gm/dL (11.4-16.0); MCH 28.4 pg (25.0-35.0); MCHC 31.6 g/dL (31.0-37.0); Platelet Count 224 k/uL (150-450); RBC 4.09 m/uL (3.80-5.40); RDW 13.9 % (11.5-15.5); WBC 7.2 k/uL (3.8-10.6)
[2019-05-24 09:30] LABS: Prothrombin Time 10.7 sec (9.0-12.0)
[2019-05-24 09:51] LABS: Albumin 3.4 g/dL (3.5-5.0); Calcium 8.6 mg/dL (8.4-10.2); Potassium 3.2 mmol/L (3.5-5.1); Total Bilirubin 1.7 mg/dL (0.2-1.3)
[2019-05-24] MEDS ORDERED: IV FLUID CONTINUATION 1,000 ML IV ONE ×2 (10:59)
--- NOTE | 2019-05-24 10:59 | FL ---
Fluoroscopy HISTORY: Gallstones, dilated common bile duct 818 seconds fluoroscopy time supplied to the referring clinician. 3 intraoperative C-arm images docu ment the procedure. See dictated report from gastroenterology.
[2019-05-24 11:06] VITALS: BMI 26.9
[2019-05-24] MEDS ORDERED: PHENYLEPHRINE-0.9% NACL SYG 1 MG/10 ML SYRINGE ONE (13:25)
[2019-05-24] MEDS ORDERED: PROPOFOL 10 MG/ML 20 ML VIAL IV ONE (13:25)
[2019-05-24] MEDS ORDERED: fentaNYL (PF) 50 MCG/ML 2 ML AMP ONE (13:25)
[2019-05-24] MEDS ORDERED: ROCURONIUM BROMIDE 10 MG/ML 10 ML VIAL IV ONE (13:25)
[2019-05-24] MEDS ORDERED: SUCCINYLCHOLINE CHLORIDE 100 MG/5 ML SYR IV ONE (13:25)
[2019-05-24] MEDS ORDERED: GLYCOPYRROLATE 0.2 MG/ML 2 ML VIAL ONE (13:25)
[2019-05-24] MEDS ORDERED: LIDOCAINE 1% INJ 10MG/ML (20 ML MDV) ONE (13:25)
[2019-05-24] MEDS ORDERED: NEOSTIGMINE 1 MG/ML 10 ML VIAL ONE (13:25)
--- NOTE | 2019-05-24 13:50 | P.PN ---
Subjective Progress Note Date: 05/24/19 (delayed charting seen at 0845 ) Principal diagnosis: Abdominal pain Patient is a 58-year-old female with past medical history of atrial fibrillation on Coumadin therapy, hypertension, dyslipidemia, and diabetes who presented to the emergency department with complaints of slurred speech and lethargy. In the ER she underwent an extensive evaluation. She was hypotensive on admission with a blood pressure 95/58. She was noted to have an elevated white blood cell count 19.3, INR 3, AST 386, ALT 304 and total bilirubin of 2.8. CT of the brain was unremarkable, EKG revealed atrial fibrillation. Gallbladder ultrasound showed multiple gallstones with mildly dilated ducts. No common bile duct stone was visualized. Patient was admitted for further monitoring and care of her acute cholangitis. She was started on IV Zosyn. GI was consulted and she underwent ERCP on 05/22 with removal of stone. Lap rachell 05/[address] Gallardo. Patient seen and examined at bedside. She complains of feeling hungry. Denies any nausea, chest pain, shortness of breath. Objective - Vital Signs Vital signs: Vital Signs Temp 97.3 F L 05/24/19 11:00 Pulse 64 05/24/19 11:00 Resp 16 05/24/19 11:00 BP 145/65 05/24/19 11:00 Pulse Ox 97 05/24/19 11:00 Intake & Output 05/23/19 05/24/19 05/24/19 18:59 06:59 18:59 Intake Total 600 620 100 Balance 600 620 100 Weight 71.214 kg Intake: IV 100 Intake, IV Titration 600 200 Amount Piperacillin-Tazobactam 3 200 .375 gm In Sodium Chloride 0.9% 100 ml @ 25 mls/hr IVPB Q8H [facility] Rx#: [id number] Sodium Chloride 0.9% 1, 600 000 ml @ 75 mls/hr IV . [id number] [facility] Rx#:[id number] Oral 420 Other: # Voids 2 2 # Bowel Movements 1 - Exam General: non toxic, no distress, appears at stated age Derm: warm, dry Head: atraumatic, normocephalic, symmetric Eyes: EOMI, no lid lag, anicteric sclera Mouth: no lip lesion, mucus membranes moist Cardiovascular: S1S2 reg, no murmur, positive posterior tibial pulse bilateral, Lungs: Crackles bilateral bases, no rales , no accessory muscle use Abdominal: soft, nontender to palpation, no guarding, no appreciable organomegaly Ext: no gross muscle atrophy, trace edema, no contractures Neuro: CN II-XI grossly intact, no focal neuro deficits Psych: Alert, oriented, anxious - Labs CBC & Chem 7: 05/24/19 08:49 05/24/19 08:49 Labs: Abnormal Lab Results - Last 24 Hours (Table) 05/23/19 05/24/19 Range/Units 20:09 08:49 Potassium 3.2 L (3.5-5.1) mmol/L BUN 5 L (7-17) mg/dL POC Glucose (mg/dL) 137 H (75-99) mg/dL Total Bilirubin 1.7 H (0.2-1.3) mg/dL AST 38 H (14-36) U/L ALT 94 H (9-52) U/L Alkaline Phosphatase 187 H (38-126) U/L Total Protein 6.0 L (6.3-8.2) g/dL Albumin 3.4 L (3.5-5.0) g/dL Microbiology - Last 24 Hours (Table) 05/20/19 20:26 Blood Culture - Preliminary Blood No Growth after 72 hours Assessment and Plan Assessment: Acute cholecystitis with choledocholithiasis with sepsis -Status post ERCP -Plan is for cholecystectomy today -Continue with Zosyn: Plan for 24 hours of IV abx due to Grade II infection WBC >18,0000, plan to complete course with oral abx of B lactam and metronidazole -Pain control, antiemetics Toxic metabolic encephalopathy -No need for neurology eval- patient returned to baseline -carotid duplex unremarkable, Coumadin on hold for ERCP -PT/OT/speech racs -MRI brain: Small vessel ischemic disease, ethmoid sinusitis Persistent A. fib -Telemetry monitoring, Coumadin on hold secondary procedure Diabetes mellitus type 2 -Discontinue sliding scale insulin as patient has had blood sugars are all wi thin normal range -Continue Accu-Cheks Chronic conditions: Hypertension, dyslipidemia, and hypothyroidism DVT prophylaxis:Heparin Discussed with: Patient, nursing Anticipated discharge: 1-[address]: home A total of 35 minutes was spent on the care of this complex patient more than 50% of the time was spent in counseling and care coordination.
[2019-05-24] MEDS ORDERED: BUPIVACAINE (PF) 0.5% 30 ML VIAL SQ ONE (13:55)
[2019-05-24] MEDS ORDERED: HYDROmorphone 0.5 MG/0.5 ML SYRINGE IM PRN (14:18)
--- NOTE | 2019-05-24 14:18 | P.OP ---
Date of Procedure: 05/24/19 Preoperative Diagnosis: Cholecystitis cholelithiasis Postoperative Diagnosis: Close cholecystitis cholelithiasis Procedure(s) Performed: Laparoscopic cholecystectomy Anesthesia: KALNY Surgeon: Shakeel Gallardo Estimated Blood Loss (ml): 25 Pathology: other (Gallbladder) Condition: stable Disposition: PACU Description of Procedure: The patient was placed on the operating table. The patient received a general endotracheal tube anesthesia. The patients abdomen was prepped and draped in the usual sterile fashion. Through an infraumbilical stab incision, the fascia of the anterior abdominal wall was grasped with a pair of Kochers and then the Veress needle was placed in the peritoneal cavity. Position of the Veress needle was confirmed with positive drop test. The abdomen was then insufflated. After adequate insufflation, the 10 mm trocar was placed in the peritoneal cavity. Following this the laparoscope was placed in the peritoneal cavity. The patient was placed in the head-up, right side up position and then a 5 mm trocar was placed in the right lateral and right subcostal position under direct visualization. A 8 mm trocar was placed in the epigastric position. The gallbladder was grasped in the fundus and infundibulum. Traction on the gallbladder was placed in the lateral and the cephalad positions. The triangle of Calot was visualized.. The cystic duct was bluntly dissected until the union of the cystic duct and common bile duct was seen. A critical view of safety was achieved. The cystic duct was then divided and sealed with the Harmonic scissors. A PDS Endoloop was then placed throughout the cystic duct stump. The cystic artery divided and sealed with the Harmonic scissors. The gallbladder was then removed from the liver bed using Harmonic scissors. The gallbladder was then extracted through the epigastric p ort site. Operative field was checked for any bleeding spots and Harmonic scissors was used to coagulate the liver bed. The abdomen was irrigated. The trocars were removed. The skin was closed using interrupted 3-0 Vicryl suture. Dermabond dressing were applied. The patient tolerated the procedure well.
[2019-05-24] MEDS: HYDROmorphone 1 MG/ML 1 ML SYRINGE IVP ONE ×4 (14:41→14:57)
[2019-05-24] MEDS ORDERED: ONDANSETRON 4 MG/2 ML VIAL IVP ONE (14:42)
[2019-05-24 16:52] LABS: Glucose,Whole Blood 89 mg/dL (75-99)
[2019-05-24] MEDS ORDERED: WARFARIN 5 MG TAB PO ONE (18:00)
[2019-05-24 21:03] LABS: Glucose,Whole Blood 95 mg/dL (75-99)
[2019-05-24] MEDS: PRAMIPEXOLE 0.25 MG TAB PO SCH (22:05)
[2019-05-24] MEDS: ASPIRIN 81 MG PO SCH (22:06)
[2019-05-24] MEDS: ATORVASTATIN 10 MG TAB PO SCH (22:06)
[2019-05-25] MEDS: PIPERACILLIN-TAZOBACTAM 3.375 GM in SODIUM CHLORIDE 0.9% 100 ML IVPB SCH ×2 (04:49→14:38)
[2019-05-25] MEDS: LEVOTHYROXINE 50 MCG TAB PO SCH (05:34)
[2019-05-25 06:10] VITALS: RESP 16
[2019-05-25 06:56] LABS: Glucose,Whole Blood 100 mg/dL (75-99)
[2019-05-25] MEDS ORDERED: HYDROcodone/APAP 5-325MG 1 EACH TAB PO PRN (08:19)
[2019-05-25] MEDS: DIGOXIN 125 MCG TAB PO SCH (08:30)
[2019-05-25] MEDS: METOPROLOL TARTRATE 50 MG TAB PO SCH (08:31)
[2019-05-25] MEDS: HEPARIN SODIUM,PORCINE 5,000 UNIT/ML 1 ML VIAL SQ SCH (08:32)
[2019-05-25] MEDS: LOSARTAN 50 MG TAB PO SCH (08:35)
[2019-05-25 08:57] LABS: HGB 11.5 gm/dL (11.4-16.0); MCH 29.6 pg (25.0-35.0); MCHC 32.8 g/dL (31.0-37.0); MCV 90.1 fL (80.0-100.0); Mean Platelet Volume 7.3; Platelet Count 217 k/uL (150-450); RBC 3.89 m/uL (3.80-5.40); RDW 14.7 % (11.5-15.5); WBC 9.3 k/uL (3.8-10.6)
[2019-05-25] MEDS ORDERED: PANTOPRAZOLE 40 MG TABLET PO SCH (09:00)
[2019-05-25 09:10] LABS: Albumin 3.2 g/dL (3.5-5.0); Calcium 8.6 mg/dL (8.4-10.2); Total Bilirubin 1.4 mg/dL (0.2-1.3); Total Protein 5.8 g/dL (6.3-8.2)
[2019-05-25 09:16] LABS: Prothrombin Time 10.8 sec (9.0-12.0)
[2019-05-25 11:11] LABS: Glucose,Whole Blood 159 mg/dL (75-99)
[2019-05-25 12:06] VITALS: BP 152/75; PULSE 83; TEMP 97.6
--- NOTE | 2019-05-25 12:17 | P.PN ---
Subjective Progress Note Date: 05/25/19 CHIEF COMPLAINT: elevated liver enzymes HISTORY OF PRESENT ILLNESS: patient is status post laparoscopic cholecystectomy. POD #1.patient is doing well postoperatively. Her pain is controlled on oral medications. She is tolerating diet. Denies nausea or vomiting. Vital signs stable. Afebrile. PHYSICAL EXAM: VITAL SIGNS: Reviewed. GENERAL: Well-developed in no acute distress. HEENT: No sclera icterus. Extraocular movements grossly intact. Moist buccal mucosa. Head is atraumatic, normocephalic. ABDOMEN: Soft. Nondistended. Nontender. surgical site clean dry and intact without drainage or signs of infection NEUROLOGIC: Alert and oriented. Cranial nerves II through XII grossly intact. ASSESSMENT: 1. Choledocholithiasis 2. Acute cholecystitis 3. Elevated liver enzymes PLAN: Continue current diet. Pain control. Incentive spirometer. Activity as tolerated. Patient is stable for discharge home today from a surgical standpoint. Nurse practitioner note has been reviewed by physician. Signing provider agrees with the documented findings, assessment, and plan of care. Objective - Vital Signs Vital signs: Vital Signs Temp 97.6 F 05/25/19 11:56 Pulse 83 05/25/19 11:56 Resp 16 05/25/19 11:56 BP 152/75 05/25/19 11:56 Pulse Ox 92 L 05/25/19 11:56 Intake & Output 05/24/19 05/25/19 05/25/19 18:59 06:59 18:59 Intake Total 300 100 Output Total 50 Balance 250 100 Weight 71.214 kg Intake: IV 300 Intake, IV Titration 100 Amount Piperacillin-Tazobactam 3 100 .375 gm In Sodium Chloride 0.9% 100 ml @ 25 mls/hr IVPB Q8H [facility] Rx#: [id number] Output: Estimated Blood Loss 50 Other: Voiding Method Toilet Toilet # Voids 1 1 - Labs CBC & Chem 7: 05/25/19 08:29 05/25/19 08:29 Labs: Abnormal Lab Results - Last 24 Hours (Table) 05/25/19 05/25/19 05/25/19 Range/Units 06:53 08:29 11:10 Potassium 3.0 L (3.5-5.1) mmol/L POC Glucose (mg/dL) 100 H 159 H (75-99) mg/dL Total Bilirubin 1.4 H (0.2-1.3) mg/dL ALT 73 H (9-52) U/L Alkaline Phosphatase 161 H (38-126) U/L Total Protein 5.8 L (6.3-8.2) g/dL Albumin 3.2 L (3.5-5.0) g/dL Microbiology - Last 24 Hours (Table) 05/20/19 20:26 Blood Culture - Preliminary Blood No Growth after 96 hours
[2019-05-25] MEDS ORDERED: POTASSIUM BICARBONATE/CIT AC 20 MEQ TABLET.EFF PO ONE (14:43)
--- NOTE | 2019-05-25 15:14 | P.DS ---
Providers Date of admission: 05/20/19 17:34 Expected date of discharge: 05/25/19 Attending physician: Yan Fisher MD Consults: 05/20/19 17:35 Consult Physician Urgent Consulting Provider: Shakeel Gallardo Consult Reason/Comments: Elevated liver enzymes, cholelithiasis Do you want consulting provider notified?: Already Contacted 05/20/19 18:29 Consult Physician Stat Consulting Provider: Suzie Chacko Consult Reason/Comments: CVA possible Do you want consulting provider notified?: Yes Primary care physician: Juan Chappell Hospital Course: Discharge Diagnosis: Acute cholecystitis with choledocholithiasis and sepsis Toxic metaboloic encephalopathy Persistent A. fib diabetes mellitus type 2 HTN HLD Hypothyroidism Hospital Course: Patient is a 58-year-old female with past medical history of atrial fibrillation on Coumadin therapy, hypertension, dyslipidemia, and diabetes who presented to the emergency department with complaints of slurred speech and lethargy. In the ER she underwent an extensive evaluation. She was hypotensive on admission with a blood pressure 95/58. She was noted to have an elevated white blood cell count 19.3, INR 3, AST 386, ALT 304 and total bilirubin of 2.8. CT of the brain was unremarkable, EKG revealed atrial fibrillation. Gallbladder ultrasound showed multiple gallstones with mildly dilated ducts. No common bile duct stone was visualized. Patient was admitted for further monitoring and care of her acute cholangitis. She was started on IV Zosyn. GI was consulted and she underwent ERCP on 05/22 with removal of stone. Lap rachell 05/[address] Gallardo without complications. She will complete a course of 4 more days of flagyl and cefuroxime. She will have [facility]. She will have a repeat INR in 2 days and then 3 days after that. She will follow with Dr. Chappell in 1-2 days and on 06/03. Family was concerned about weakness prior to discharge, offered SNF and they declined. Patient was able to ambulate in the hallways prior to discharge. Patient seen and examined at bedside. Pain in RUQ better than yesterday. No chest pain, SOB,or nausea. Has tolerated her diet. Vital signs reviewed and stable. General: non toxic, no distress, appears at stated age Derm: warm, dry Head: atraumatic, normocephalic, symmetric Eyes: EOMI, no lid lag, anicteric sclera Mouth: no lip lesion, mucus membranes moist Cardiovascular: S1S2 reg, no murmur, positive posterior tibial pulse bilateral, Lungs: CTA bilateral, no rhonchi, no rales , no accessory muscle use Abdominal: soft, + tender to palpation RUQ, no guarding, no appreciable organomegaly Ext: no gross muscle atrophy, no edema, no contractures Neuro: CN II-XI grossly intact, no focal neuro deficits Psych: Alert, oriented, appropriate affect A total of 35 minutes of time were spent preparing this complex discharge summary . Pertinent Studies: Head [id number] atrophic and small vessel ischemic changes without acute intracranial process Gallbladder ultrasound-multiple gallstones, mild dilated bile ducts MRI brain-no acute intracranial abnormality, punctate confluent flare lesions likely secondary to small vessel disease, minimal chronic mucoperiosteal thickening involving the ethmoid sinuses Procedures: ERCP 05/22-cholangiogram, sphincterotomy, and balloon sweep productive of debris and a gallstone Laparoscopic cholecystectomy 05/24 Patient Condition at Discharge: Stable Plan - Discharge Summary Discharge Rx Participant: Yes New Discharge Prescriptions: New Hydrocodone/Acetaminophen [[place] 5-325] 1 tab PO Q6HR PRN 3 Days #12 tab PRN Reason: Pain RX: Cefuroxime [Ceftin] 500 mg PO BID #16 tablet RX: metroNIDAZOLE [Flagyl] 500 mg PO BID #8 tab Continue RX: Warfarin [Coumadin] 7.5 mg PO MOWE RX: Digoxin [Lanoxin] 125 mcg PO DAILY RX: Aspirin 81 mg PO HS RX: Metoprolol Tartrate [Lopressor] 50 mg PO BID RX: Simvastatin [Zocor] 10 mg PO HS RX: Levothyroxine Sodium [Synthroid] 50 mcg PO DAILY RX: Potassium Chloride 20 meq PO DAILY RX: Warfarin Sodium [Coumadin] 5 mg PO SUTUTHFR RX: Pramipexole [Mirapex] 0.25 mg PO HS RX: Furosemide [Lasix] 20 mg PO Q48H RX: Furosemide [Lasix] 40 mg PO Q48H RX: Losartan Potassium 50 mg PO DAILY Discharge Medication List RX: Aspirin 81 mg PO HS 04/14/16 [History] RX: Digoxin [Lanoxin] 125 mcg PO DAILY 04/14/16 [History] RX: Levothyroxine Sodium [Synthroid] 50 mcg PO DAILY 04/14/16 [History] RX: Metoprolol Tartrate [Lopressor] 50 mg PO BID 04/14/16 [History] RX: Simvastatin [Zocor] 10 mg PO HS 04/14/16 [History] RX: Warfarin [Coumadin] 7.5 mg PO MOWESA 04/14/16 [History] RX: Potassium Chloride 20 meq PO DAILY 04/14/19 [History] RX: Warfarin Sodium [Coumadin] 5 mg PO SUTUTHFR 04/14/19 [History] RX: Furosemide [Lasix] 20 mg PO Q48H 05/20/19 [History] RX: Furosemide [Lasix] 40 mg PO Q48H 05/20/19 [History] RX: Losartan Potassium 50 mg PO DAILY 05/20/19 [History] RX: Pramipexole [Mirapex] 0.25 mg PO HS 05/20/19 [History] Hydrocodone/Acetaminophen [[place] 5-325] 1 tab PO Q6HR PRN 3 Days #12 tab 05/25/19 [Rx] RX: Cefuroxime [Ceftin] 500 mg PO BID #16 tablet 05/25/19 [Rx] RX: metroNIDAZOLE [Flagyl] 500 mg PO BID #8 tab 05/25/19 [Rx] Follow up Appointment(s)/Referral(s): Juan Chappell MD [Primary Care Provider] - 1-2 days [facility], [NON-STAFF] - 1-2 Days Shakeel Gallardo MD [STAFF PHYSICIAN] - 1 Week Patient Instructions/Handouts: ERCP (Endoscopic Retrograde Cholangiopan creatography) (DC) Activity/Diet/Wound Care/Special Instructions: Diet: regular No driving while taking [place] No lifting over 10 pounds You may shower. No soaking or tub baths Very light activity until you are reevaluated at your follow up appointment with your surgeon
[2019-05-25 17:03] LABS: Glucose,Whole Blood 141 mg/dL (75-99)
[2019-05-25] MEDS ORDERED: WARFARIN 7.5 MG TAB PO ONE (18:00)
== END 2019-05-25 18:05 | disposition home health service (06) | DRG 853 ==
LOC: EC 14:40 → 3NMEDONC 17:34
PROVIDERS: ADMIT Family Medicine; ATTEND Family Medicine
PROC: BF101ZZ Fluoroscopy of Bile Ducts using Low Osmolar Contrast (ICD-10-PCS; 2019-05-22 15:00)
PROC: 0FC98ZZ Extirpation of Matter from Common Bile Duct, Via Natural or Artificial Opening Endoscopic (ICD-10-PCS; 2019-05-22 15:00)
PROC: 0FT44ZZ Resection of Gallbladder, Percutaneous Endoscopic Approach (ICD-10-PCS; principal; 2019-05-24 11:55)
DX: A41.9 Sepsis, unspecified organism (principal); G92 Toxic encephalopathy; K80.42 Calculus of bile duct with acute cholecystitis without obstruction; I48.1 Persistent atrial fibrillation; K80.00 Calculus of gallbladder with acute cholecystitis without obstruction; R47.81 Slurred speech; R63.0 Anorexia; E86.0 Dehydration; I95.9 Hypotension, unspecified; Z66 Do not resuscitate; E11.9 Type 2 diabetes mellitus without complications; I10 Essential (primary) hypertension; J32.2 Chronic ethmoidal sinusitis; E78.5 Hyperlipidemia, unspecified; E03.9 Hypothyroidism, unspecified; Z79.82 Long term (current) use of aspirin; Z79.890 Hormone replacement therapy; Z79.899 Other long term (current) drug therapy; Z79.01 Long term (current) use of anticoagulants; Z98.890 Other specified postprocedural states; Z80.9 Family history of malignant neoplasm, unspecified; Z83.49 Family history of other endocrine, nutritional and metabolic diseases
CPT/HCPCS: 36415; 43262; 43277; 70450; 70551; 71046; 74330; 76705; 80053; 80061; 81001; 82140; 82607; 83036; 84484; 85025; 85027; 85610; 85730; 86780; 86850; 86900; 86901; 87040; 88304; 93005; 93880; 96361; 96365; 96375; 99285

== ENCOUNTER 2019-08-07 12:00 | Emergency (ER) | payer MEDICARE, BC ==
[2019-08-07 12:13] VITALS: RESP 18; TEMP 98.7
[2019-08-07] MEDS ORDERED: LIDOCAINE/EPINEPHR/TETRACAINE 5 ML BOTTLE TOPICAL ONE (12:51)
[2019-08-07 13:04] LABS: Basophils # (A) 0.1 k/uL (0-0.2); Basophils % (A) 1 %; Eosinophils # (A) 0.1 k/uL (0-0.7); Eosinophils % (A) 2 %; HCT 43.8 % (34.0-46.0); HGB 13.8 gm/dL (11.4-16.0); Lymphocytes % (A) 31 %; MCH 28.4 pg (25.0-35.0); MCHC 31.6 g/dL (31.0-37.0); MCV 89.9 fL (80.0-100.0); Mean Platelet Volume 6.7; Monocytes # (A) 0.3 k/uL (0-1.0); Monocytes % (A) 5 %; Neutrophils # (A) 3.6 k/uL (1.3-7.7); Neutrophils % (A) 58 %; Platelet Count 260 k/uL (150-450); RBC 4.88 m/uL (3.80-5.40); RDW 14.9 % (11.5-15.5); WBC 6.2 k/uL (3.8-10.6)
[2019-08-07 13:12] LABS: INR 1.1 (<1.2); Prothrombin Time 11.9 sec (9.0-12.0)
[2019-08-07 13:13] LABS: Partial Thromboplastin Time 26.9 sec (22.0-30.0)
[2019-08-07 13:25] LABS: Albumin 4.7 g/dL (3.5-5.0); Calcium 10.1 mg/dL (8.4-10.2); Potassium 4.7 mmol/L (3.5-5.1); Total Bilirubin 0.8 mg/dL (0.2-1.3); Total Protein 7.7 g/dL (6.3-8.2)
[2019-08-07] MEDS ORDERED: DIPH,PERTUS(ACELL)TETVAC-LF 0.5 ML VIAL IM ONE (13:35)
--- NOTE | 2019-08-07 13:36 | ED ---
General Adult HPI - General Chief complaint: Fall Stated complaint: Fall Time Seen by Provider: 08/07/19 12:08 Source: patient, EMS, RN notes reviewed Mode of arrival: EMS Limitations: no limitations - History of Present Illness Initial comments: This a 88-year-old female presents emergency Department chief complaint of fall, epistaxis. Patient states she tripped and fell at home did fall striking her face. Patient complains of minimal headache she has noted swelling on her forehead and a complaint of epistaxis which has subsided. Patient does admit that she is on Coumadin. This was a ground-level fall. She denies neck, back pain, extremity injuries. She is unsure when her last tetanus was. - Related Data Home Medications Medication Instructions Recorded Confirmed Aspirin 81 mg PO HS 04/14/16 08/07/19 Digoxin [Lanoxin] 125 mcg PO DAILY 04/14/16 08/07/19 Levothyroxine Sodium [Synthroid] 50 mcg PO DAILY 04/14/16 08/07/19 Metoprolol Tartrate [Lopressor] 50 mg PO BID 04/14/16 08/07/19 Simvastatin [Zocor] 10 mg PO HS 04/14/16 08/07/19 Warfarin [Coumadin] 7.5 mg PO MOWESA 04/14/16 08/07/19 Warfarin Sodium [Coumadin] 5 mg PO SUTUTHFR 04/14/19 08/07/19 Furosemide [Lasix] 20 mg PO Q48H 05/20/19 08/07/19 Furosemide [Lasix] 40 mg PO Q48H 05/20/19 08/07/19 Losartan Potassium 50 mg PO HS 05/20/19 08/07/19 Pramipexole [Mirapex] 0.25 mg PO HS 05/20/19 08/07/19 Multivitamins, Thera [Multivitamin 1 tab PO DAILY 08/07/19 08/07/19 (formulary)] Omeprazole 20 mg PO DAILY 08/07/19 08/07/19 Previous Rx's Medication Instructions Recorded Cephalexin [Keflex] 500 mg PO Q8HR #21 cap 08/07/19 Allergies Allergy/AdvReac Type Severity Reaction Status Date / Time No Known Allergies Allergy Verified 08/07/19 12:38 Review of Systems ROS Statement: Those systems with pertinent positive or pertinent negative responses have been documented in the HPI. ROS Other: All systems not noted in ROS Statement are negative. Past Medical History Past Medical History: Atrial Fibrillation, Hyperlipidemia, Hypertension, Thyroid Disorder History of Any Multi-Drug Resistant Organisms: None Reported Past Surgical History: Orthopedic Surgery Past Anesthesia/Blood Transfusion Reactions: No Reported Reaction Past Psychological History: No Psychological Hx Reported Smoking Status: Never smoker Past Alcohol Use History: Occasional Past Drug Use History: None Reported - Past Family History Daughter(s) Family Medical History: Cancer, Thyroid Disorder General Exam Limitations: no limitations General appearance: alert, in no apparent distress Head exam: Present: atraumatic, normocephalic. Absent: normal inspection (Mild swelling on the left side of the forehead) Eye exam: Present: normal appearance, PERRL, EOMI. Absent: scleral icterus, conjunctival injection, periorbital swelling ENT exam: Present: normal oropharynx, mucous membranes moist, TM's normal bilaterally, normal external ear exam. Absent: normal exam (Dry blood noted in bilateral nostrils, there is a 1cm over the nasal bridge) Neck exam: Present: normal inspection. Absent: tenderness, meningismus, full ROM (Patient c-collar), lymphadenopathy Respiratory exam: Present: normal lung sounds bilaterally. Absent: respiratory distress, wheezes, rales, rhonchi, stridor, chest wall tenderness Cardiovascular Exam: Present: regular rate, normal rhythm, normal heart sounds. Absent: systolic murmur, diastolic murmur, rubs, gallop, clicks GI/Abdominal exam: Present: soft, normal bowel sounds. Absent: distended, tenderness, guarding, rebound, rigid Neurological exam: Present: alert, oriented X3, CN II-XII intact Skin exam: Present: warm, dry, intact, normal color. Absent: rash Course Vital Signs 08/07/19 12:07 Temperature 98.7 F Pulse Rate 73 Respiratory 18 Rate Blood Pressure 128/91 O2 Sat by Pulse 93 L Oximetry Medical Decision Making - Medical Decision Making 88 y/o present for a fall CT shows evidence of nasal bone fracture, otherwise unremarkable. Patient is INR is 1.1 subtherapeutic. Patient's laceration was. Patient was placed on antibiotics given nasal bone fracture and open lacerat ion. Patient we discharged with follow-up return parameters were discussed. - Lab Data Result diagrams: 08/07/19 12:10 08/07/19 12:10 Lab Results 08/07/19 08/07/19 08/07/19 Range/Units 12:10 12:10 12:10 WBC 6.2 (3.8-10.6) k/uL RBC 4.88 (3.80-5.40) m/uL Hgb 13.8 (11.4-16.0) gm/dL Hct 43.8 (34.0-46.0) % MCV 89.9 (80.0-100.0) fL MCH 28.4 (25.0-35.0) pg MCHC 31.6 (31.0-37.0) g/dL RDW 14.9 (11.5-15.5) % Plt Count 260 (150-450) k/uL Neutrophils % 58 % Lymphocytes % 31 % Monocytes % 5 % Eosinophils % 2 % Basophils % 1 % Neutrophils # 3.6 (1.3-7.7) k/uL Lymphocytes # 2.0 (1.0-4.8) k/uL Monocytes # 0.3 (0-1.0) k/uL Eosinophils # 0.1 (0-0.7) k/uL Basophils # 0.1 (0-0.2) k/uL PT 11.9 (9.0-12.0) sec INR 1.1 (<1.2) APTT 26.9 (22.0-30.0) sec Sodium 140 (137-145) mmol/L Potassium 4.7 (3.5-5.1) mmol/L Chloride 100 (98-107) mmol/L Carbon Dioxide 30 (22-30) mmol/L Anion Gap 10 mmol/L BUN 21 H (7-17) mg/dL Creatinine 0.88 (0.52-1.04) mg/dL Est GFR (CKD-EPI)AfAm 69 (>60 ml/min/1.73 sqM) Est GFR (CKD-EPI)NonAf 60 (>60 ml/min/1.73 sqM) Glucose 99 (74-99) mg/dL Calcium 10.1 (8.4-10.2) mg/dL Total Bilirubin 0.8 (0.2-1.3) mg/dL AST 32 (14-36) U/L ALT 24 (9-52) U/L Alkaline Phosphatase 74 (38-126) U/L Total Protein 7.7 (6.3-8.2) g/dL Albumin 4.7 (3.5-5.0) g/dL Disposition Clinical Impression: Fall, Nasal fracture, Facial laceration, Facial hematoma Disposition: HOME SELF-CARE Condition: Stable Instructions (If sedation given, give patient instructions): Fall Prevention (ED) Additional Instructions: Please return to the Emergency Department if symptoms worsen or any other concerns. Prescriptions: Cephalexin [Keflex] 500 mg PO Q8HR #21 cap Is patient prescribed a controlled substance at d/c from ED?: No Referrals: Juan Chappell MD [Primary Care Provider] - 1-2 days Time of Disposition: 14:20
--- NOTE | 2019-08-07 13:57 | CT ---
EXAMINATION TYPE: CT brain tomeka pitts DATE OF EXAM: 08/07/2019 COMPARISON: Previous CT scan of the brain dated 05/20/2019 HISTORY: Fall CT DLP: 944.2 mGycm Automated exposure control for dose reduction was used. TECHNIQUE: CT scan of the head and cervical spine are performed without contrast. FINDINGS: BRAIN: There are generalized changes of sulcal prominence and ventriculomegaly, compatible with atrop hic change. There is diffuse periventricular white matter lucency, compatible with chronic white asha er ischemic change. There is physiologic calcification of the basal ganglia. There is no acute focal lesion, mass effect or midline shift identified. I do not see evidence of intracranial blood. There is a left frontal scalp hematoma. Visualized portions of the paranasal sinuses and mastoids are clear. The bony calvarium is intact. IMPRESSION: 1. NO ACUTE INTRACRANIAL ABNORMALITY. 2. ATROPHIC AND ISCHEMIC CHANGES. 3. LEFT FRONTAL SCALP HEMATOMA. CERVICAL SPINE: Visualized portions of the lungs are clear. Prevertebral soft tissues are normal. Vertebral body height and alignment are maintained. Atlantoaxial relationships are normal. There is d isc space loss and hypertrophic spondylosis present at C5-6 and C6-7. There is uncovertebral joint di sease at this level. There is facet arthropathy on the right at C3-4 and bilaterally at 4 5 no defini te protrusion is seen. No fracture is seen. IMPRESSION: 1. NO ACUTE OSSEOUS LESION. 2. MODERATE DEGENERATIVE CHANGE.
--- NOTE | 2019-08-07 14:16 | CT ---
EXAMINATION TYPE: CT facial bones wo con DATE OF EXAM: 08/07/2019 COMPARISON: None HISTORY: Fall CT DLP: 944.2 mGycm Automated exposure control for dose reduction was used. TECHNIQUE: CT scan of the sinuses is performed without contrast, axial images are obtained, coronal r eformatted images are also reviewed. FINDINGS: There is a left frontal scalp hematoma. The zygomatic arches are intact. The pterygoid plates are intact. The jalloh of the orbits and maxilla ry sinuses are intact. No mandibular fracture is seen. There is a minimally displaced fracture of the superior nasal spine. There is some soft tissue swelling within the nasal cavity anteriorly. IMPRESSION: 1. LEFT FRONTAL SCALP HEMATOMA. 2. MINIMALLY DISPLACED SUPERIOR NASAL SPINE FRACTURE. CODE A: INITIAL ENCOUNTER FOR CLOSED FRACTURE.
[2019-08-07] MEDS ORDERED: TOPICAL SKIN ADHESIVE 1 EACH AMP TOPICAL ONE (14:18)
[2019-08-07 15:58] VITALS: BP 117/78; PULSE 77
--- NOTE | 2019-08-11 01:56 | CDI ---
Dear Alejandro Ferrer MD: Please do addendum length of the laceration and repair procedure note as Exofin was given in medication list. Thank you, Daren Cartwright, Lead Injection Mold Technician. If you have any questions, please contact Trauma Therapist at [phone]. [facility]
== END 2019-08-07 15:57 | disposition home or self-care (01) ==
LOC: EC 12:00
DX: S02.2XXB Fracture of nasal bones, initial encounter for open fracture (principal); S00.83XA Contusion of other part of head, initial encounter; I48.91 Unspecified atrial fibrillation; E78.5 Hyperlipidemia, unspecified; I10 Essential (primary) hypertension; E07.9 Disorder of thyroid, unspecified; Z79.01 Long term (current) use of anticoagulants; Z79.82 Long term (current) use of aspirin; Z79.890 Hormone replacement therapy; Z79.899 Other long term (current) drug therapy; Z23 Encounter for immunization; W01.10XA Fall on same level from slipping, tripping and stumbling with subsequent striking against unspecified object, initial encounter; Y93.01 Activity, walking, marching and hiking; Y92.009 Unspecified place in unspecified non-institutional (private) residence as the place of occurrence of the external cause
CPT/HCPCS: 99284; 12011; 96365; 90471; 36415; 80053; 85025; 85610; 85730; 72125; 70486; 70450; 90715; J0690

== ENCOUNTER 2021-09-16 13:13 | Inpatient (IN) | payer MEDICARE, BC ==
[2021-09-16] MEDS ORDERED: OXYMETAZOLINE 0.05% NASL SPRAY 1 SPRAY BOTTLE NASAL STA (15:50)
--- NOTE | 2021-09-16 15:54 | ED ---
General Adult HPI <Michael Benjamin - Last Filed: 09/16/21 18:14> - General Source: patient, family (son), RN notes reviewed, old records reviewed Mode of arrival: wheelchair Limitations: no limitations - History of Present Illness -: hour(s) (6) Location: face (Right nostril epistaxis) Severity scale (1-10): 0 Consistency: constant Improves with: none Worsens with: none Associated Symptoms: denies other symptoms Treatments Prior to Arrival: none <Get Lawrence - Last Filed: 09/16/21 23:08> - General Chief complaint: ENT Stated complaint: Nose Bleed Time Seen by Provider: 09/16/21 15:34 - History of Present Illness Initial comments: Well-appearing 89-year-old female, alert and oriented, presents to the emergency room with her son complaints of right nostril epistaxis since 9:00 this morning. Son states that they were able to get it stopped but then it restarted. She does take Coumadin for atrial fibrillation. She states that she checks her levels at home and was checked a couple of days ago and was told it was okay. She denies any other bleeding. No nausea vomiting diarrhea or headaches. She denies any fevers, dizziness, chest pain or shortness of breath.. (Get Lawrence) - Related Data Home Medications Medication Instructions Recorded Confirmed Digoxin [Lanoxin] 125 mcg PO DAILY 04/14/16 09/16/21 Levothyroxine Sodium [Synthroid] 50 mcg PO DAILY 04/14/16 09/16/21 Metoprolol Tartrate [Lopressor] 50 mg PO BID 04/14/16 09/16/21 Simvastatin [Zocor] 10 mg PO HS 04/14/16 09/16/21 Warfarin [Coumadin] 7.5 mg PO HARRIS@1700 04/14/16 09/16/21 Warfarin Sodium [Coumadin] 5 mg PO MOTUWETHSA@1700 04/14/19 09/16/21 Furosemide [Lasix] 40 mg PO Q48H 05/20/19 09/16/21 Losartan Potassium 25 mg PO HS 05/20/19 09/16/21 Pramipexole [Mirapex] 0.25 mg PO HS 05/20/19 09/16/21 Multivitamins, Thera [Multivitamin 1 tab PO DAILY 08/07/19 09/16/21 (formulary)] Furosemide [Lasix] 20 mg PO Q48H 09/16/21 09/16/21 Oxybutynin ER [Ditropan Xl] 10 mg PO HS 09/16/21 09/16/21 Potassium Chloride 10 meq PO BID 09/16/21 09/16/21 Allergies Allergy/AdvReac Type Severity Reaction Status Date / Time No Known Allergies Allergy Verified 09/16/21 18:05 Review of Systems ROS Other: All systems not noted in ROS Statement are negative. <Michael Benjamin - Last Filed: 09/16/21 18:14> ROS Other: All systems not noted in ROS Statement are negative. <Get Lawrence - Last Filed: 09/16/21 23:08> ROS Statement: Those systems with pertinent positive or pertinent negative responses have been documented in the HPI. Past Medical History Past Medical History: Atrial Fibrillation, Hyperlipidemia, Hypertension, Thyroid Disorder History of Any Multi-Drug Resistant Organisms: None Reported Past Surgical History: Orthopedic Surgery Past Anesthesia/Blood Transfusion Reactions: No Reported Reaction Past Psychological History: No Psychological Hx Reported Past Alcohol Use History: Occasional Past Drug Use History: None Reported - Past Family History Daughter(s) Family Medical History: Cancer, Thyroid Disorder <Get Lawrence - Last Filed: 09/16/21 23:08> General Exam Limitations: no limitations General appearance: alert, in no apparent distress Head exam: Present: atraumatic, normocephalic, normal inspection Eye exam: Present: normal appearance, EOMI ENT exam: Present: mucous membranes moist, other (Blood in the oropharynx, right nostril with active bleeding.) Neck exam: Present: normal inspection, full ROM. Absent: tenderness, m eningismus, lymphadenopathy Respiratory exam: Present: normal lung sounds bilaterally. Absent: respiratory distress, wheezes, rales, rhonchi, stridor Cardiovascular Exam: Present: regular rate, normal rhythm, normal heart sounds. Absent: systolic murmur, diastolic murmur, rubs, gallop, clicks GI/Abdominal exam: Present: soft Neurological exam: Present: alert, oriented X3 Psychiatric exam: Present: normal affect, normal mood Skin exam: Present: warm, dry, intact, normal color. Absent: rash, cyanosis, diaphoretic <Get Lawrence - Last Filed: 09/16/21 23:08> Course <Michael Benjamin - Last Filed: 09/16/21 18:14> - Reevaluation(s) Time: 16:40 Time: 21:47 <Get Lawrence - Last Filed: 09/16/21 23:08> Vital Signs 09/16/21 09/16/21 09/16/21 15:18 18:32 20:00 Temperature 97.4 F L Pulse Rate 93 66 Pulse Rate [ 105 H Consulting Systems Engineer ] Pulse Rate [ 105 H Pulse Oximetery ] Respiratory 18 18 20 Rate Blood Pressure 121/87 126/63 Blood Pressure 131/85 [Right Arm] O2 Sat by Pulse 97 95 94 L Oximetry - Reevaluation(s) Reevaluation #1: 09/16/21 16:[address] for the past 50 minutes, was removed and patient continues to have bleeding. Afrin spray given. (Get Lawrence) Reevaluation #2: 09/16/21 18:14 TRIMMER TAILER supervision did personally evaluate the patient she did come in with a complaint of nosebleed. She was noted have an elevated INR. Due to the prolonged period of bleeding control and the elevated INR patient will be admitted I do agree with the assessment and plan. He does appear to be awake alert oriented and otherwise stable I do agree with the assessment and plan (Michael Benjamin) Nasal packing placed to right nostril 09/16/21 21:47 (Get Lawrence) Medical Decision Making - Lab Data Result diagrams: 09/16/21 17:10 <Michael Benjamin - Last Filed: 09/16/21 18:14> - Lab Data Result diagrams: 09/16/21 17:10 <Get Lawrence - Last Filed: 09/16/21 23:08> - Medical Decision Making 89-year-old female, alert and oriented 4, presents to the emergency room with her son for epistaxis of the right nostril since 9:00 this morning. They have been unable to completely stop the bleeding. She is actively bleeding in the emergency room. She denies any other bleeding. She denies any chest pain sh ortness of breath nausea or vomiting. She does take Coumadin. Her INR 8.4 and her PTT is 82. CBC is stable. She is coronavirus negative. She was given vitamin K by mouth and nasal packing was inserted to control the bleeding. Her vital signs are stable. I did discuss this case with Dr. Benjamin. She will be kept for observation. (Get Lawrence) - Lab Data Lab Results 09/16/21 09/16/21 Range/Units 16:25 17:10 WBC 9.6 (3.8-10.6) k/uL RBC 4.80 (3.80-5.40) m/uL Hgb 14.6 (11.4-16.0) gm/dL Hct 43.1 (34.0-46.0) % MCV 89.8 (80.0-100.0) fL MCH 30.4 (25.0-35.0) pg MCHC 33.9 (31.0-37.0) g/dL RDW 13.7 (11.5-15.5) % Plt Count 238 (150-450) k/uL MPV 7.9 Neutrophils % 62 % Lymphocytes % 29 % Monocytes % 5 % Eosinophils % 1 % Basophils % 1 % Neutrophils # 6.0 (1.3-7.7) k/uL Lymphocytes # 2.8 (1.0-4.8) k/uL Monocytes # 0.5 (0-1.0) k/uL Eosinophils # 0.1 (0-0.7) k/uL Basophils # 0.1 (0-0.2) k/uL PT 82.0 H (9.0-12.0) sec INR 8.4 H* (<1.2) Disposition <Michael Benjamin - Last Filed: 09/16/21 18:14> Decision Date: 09/16/21 Decision Time: 17:36 <Get Lawrence - Last Filed: 09/16/21 23:08> Clinical Impression: Supratherapeutic INR, Epistaxis Disposition: ADMITTED IP TO THIS [facility] Condition: Good
[2021-09-16 16:52] LABS: INR 8.4 (<1.2)
[2021-09-16] MEDS ORDERED: PHYTONADIONE ORAL 5 MG/5 ML ORAL.SYRG PO STA (17:35)
[2021-09-16] MEDS ORDERED: NALOXONE 0.4 MG/ML 1 ML VIAL IV PRN (17:36)
[2021-09-16 17:54] LABS: Basophils # (A) 0.1 k/uL (0-0.2); Basophils % (A) 1 %; Eosinophils # (A) 0.1 k/uL (0-0.7); Eosinophils % (A) 1 %; HCT 43.1 % (34.0-46.0); HGB 14.6 gm/dL (11.4-16.0); Lymphocytes # (A) 2.8 k/uL (1.0-4.8); Lymphocytes % (A) 29 %; MCH 30.4 pg (25.0-35.0); MCHC 33.9 g/dL (31.0-37.0); MCV 89.8 fL (80.0-100.0); Mean Platelet Volume 7.9; Monocytes # (A) 0.5 k/uL (0-1.0); Monocytes % (A) 5 %; Neutrophils % (A) 62 %; Platelet Count 238 k/uL (150-450); RDW 13.7 % (11.5-15.5); WBC 9.6 k/uL (3.8-10.6)
[2021-09-17 05:32] LABS: INR 1.7 (<1.2); Prothrombin Time 17.3 sec (9.0-12.0)
[2021-09-17 05:51] LABS: Calcium 8.9 mg/dL (8.4-10.2); Potassium 3.8 mmol/L (3.5-5.1)
--- NOTE | 2021-09-17 05:54 | P.HPIM ---
History of Present Illness H&P Date: 09/16/21 Chief Complaint: Epistaxis 84-year-old female with hypertension and atrial fibrillation on Coumadin Patient comes in today due to epistaxis which she reports that started this morning suddenly with no prior injuries. She was able to stop it intermittently however it kept recurring for which she decided to come to the hospital for evaluation she claims to be compliant with her Coumadin and INR testing last time was done few days ago and was unremarkable per her report. She denies any history of similar bleeding in the past. She denies any nasal injury. She reports that she's been having frequent falling recently had home where she lives with her son. She keeps losing her balance and falls backward most recent fall was couple days ago. She is not sure if she is passing out she denies any associated chest pain or heart racing skipping beats dizziness or lighth eadedness. She just reports feeling weak and falls backward no associated nausea vomiting or seizure-like activity Otherwise she denies any GI bleeding denies any chest pain or trouble breathing at this time In the ED she was found to have an INR of 8 she was given by mouth potassium anterior nasal packing was done as she was bleeding in the ED and was admitted for close monitoring Review of Systems Pertinent positives as noted in HPI. All other systems were reviewed and are negative Past Medical History Past Medical History: Atrial Fibrillation, Hyperlipidemia, Hypertension, Thyroid Disorder History of Any Multi-Drug Resistant Organisms: None Reported Past Surgical History: Orthopedic Surgery Past Anesthesia/Blood Transfusion Reactions: No Reported Reaction Past Psychological History: No Psychological Hx Reported Past Alcohol Use History: Occasional Past Drug Use History: None Reported - Past Family History Daughter(s) Family Medical History: Cancer, Thyroid Disorder Medications and Allergies Home Medications Medication Instructions Recorded Confirmed Type Digoxin [Lanoxin] 125 mcg PO DAILY 04/14/16 09/16/21 History Levothyroxine Sodium [Synthroid] 50 mcg PO DAILY 04/14/16 09/16/21 History Metoprolol Tartrate [Lopressor] 50 mg PO BID 04/14/16 09/16/21 History Simvastatin [Zocor] 10 mg PO HS 04/14/16 09/16/21 History Warfarin [Coumadin] 7.5 mg PO HARRIS@0 04/14/16 09/16/21 History Warfarin Sodium [Coumadin] 5 mg PO MOTUWETHSA@1700 04/14/19 09/16/21 History Furosemide [Lasix] 40 mg PO Q48H 05/20/19 09/16/21 History Losartan Potassium 25 mg PO HS 05/20/19 09/16/21 History Pramipexole [Mirapex] 0.25 mg PO HS 05/20/19 09/16/21 History Multivitamins, Thera [Multivitamin 1 tab PO DAILY 08/07/19 09/16/21 History (formulary)] Furosemide [Lasix] 20 mg PO Q48H 09/16/21 09/16/21 History Oxybutynin ER [Ditropan Xl] 10 mg PO HS 09/16/21 09/16/21 History Potassium Chloride 10 meq PO BID 09/16/21 09/16/21 History Allergies Allergy/AdvReac Type Severity Reaction Status Date / Time No Known Allergies Allergy Verified 09/16/21 18:05 Physical Exam Vitals: Vital Signs Temp Pulse Pulse Pulse Resp BP BP 09/16/21 20:00 105 H 105 H 20 131/85 09/16/21 18:32 66 18 126/63 09/16/21 15:18 97.4 F L 93 18 121/87 Pulse Ox 09/16/21 20:00 94 L 09/16/21 18:32 95 09/16/21 15:18 97 Intake and Output 09/16/21 09/16/21 09/16/21 06:59 14:59 22:59 Other: Weight 71.214 kg Constitutional: No acute distress, conversant, pleasant Eyes: Anicteric sclerae, moist conjunctiva, Pupils equal round reactive to light ENMT: NC/small scab Over the pinna of the right ear, anterior nasal packing over the right nostril Oropharynx clear, no erythema, or exudates Neck: Supple, FROM, no masses, or JVD No carotid bruits No thyromegaly Lungs: Clear to auscultation Clear to percussion Normal respiratory effort, no accessory muscle use Cardiovascular: Heart irregular systolic murmurs, no gallops, or rubs No peripheral edema Abdominal: Soft Nontender, no guarding, rebound or rigidity Abdomen moving with respiration Normoactive bowel sounds No hepatomegaly, No splenomegaly No palpable mass No abdominal wall hernia noted Skin: Normal temperature, tone, texture, turgor No induration No subcutaneous nodules No rash, lesions No ulcers Extremities: No digital cyanosis No clubbing Pedal pulses intact and symmetrical Radial pulses intact and symmetrical No calf tenderness Psychiatric: Alert and oriented to person, place and time Appropriate affect fair judgement Neuro Muscles Strength 4/5 in all 4 extremities Sensation to light touch grossly present throughout Cranial nerves II-XII grossly intact No focal sensory deficits Lymphatics: no palpable cervical or supraclavicular , or inguinal lymph nodes Results CBC & Chem 7: 09/16/21 17:10 Labs: Abnormal Lab Results - Last 24 Hours (Table) 09/16/21 Range/Units 16:25 PT 82.0 H (9.0-12.0) sec INR 8.4 H* (<1.2) Assessment and Plan Assessment: Refractory recurrent epistaxis with supratherapeutic INR Intranasal packing done Monitor hemoglobin If nasal packing remains for over 24 hours consider starting patient on Augmentin Chronic conditions Atrial fibrillation on Coumadin Hold Coumadin for now patient is supratherapeutic INR Patient status post by mouth vitamin K due to refractory epistaxis Hypertension resume blood pressure medications Hyperlipidemia resume statin Supportive care Follow-up hemoglobin Full code Anticipated length of stay less than 2 midnights Anticipated discharge home
[2021-09-17] MEDS: LEVOTHYROXINE 50 MCG TAB PO SCH (06:11)
[2021-09-17 08:26] LABS: Basophils # (A) 0.1 k/uL (0-0.2); Basophils % (A) 1 %; Eosinophils # (A) 0.2 k/uL (0-0.7); Eosinophils % (A) 3 %; HCT 40.1 % (34.0-46.0); HGB 13.2 gm/dL (11.4-16.0); Lymphocytes # (A) 1.9 k/uL (1.0-4.8); Lymphocytes % (A) 31 %; MCH 30.5 pg (25.0-35.0); MCV 92.5 fL (80.0-100.0); Mean Platelet Volume 8.3; Monocytes # (A) 0.4 k/uL (0-1.0); Monocytes % (A) 7 %; Neutrophils # (A) 3.6 k/uL (1.3-7.7); Neutrophils % (A) 57 %; Platelet Count 187 k/uL (150-450); RBC 4.33 m/uL (3.80-5.40); RDW 14.2 % (11.5-15.5); WBC 6.3 k/uL (3.8-10.6)
[2021-09-17 08:27] LABS: INR 1.6 (<1.2); Prothrombin Time 15.7 sec (9.0-12.0)
[2021-09-17] MEDS: METOPROLOL TARTRATE 50 MG TAB PO SCH ×2 (09:44→22:20)
[2021-09-17] MEDS: DIGOXIN 125 MCG TAB PO SCH (09:44)
--- NOTE | 2021-09-17 11:25 | CT ---
EXAMINATION TYPE: CT brain wo con DATE OF EXAM: 09/17/2021 COMPARISON: 08/07/2019 HISTORY: recurrent falls CT DLP: 1098.4 mGycm Automated exposure control for dose reduction was used. FINDINGS: Moderate degenerative change with diffuse low-attenuation the white matter which is nonspecific. Calcification involving the basal ganglia bilaterally. No midline shift or mass effect. Intracranial atherosclerotic changes. Changes of chronic sinusitis. Orbits symmetric. Calvarium intact. Mild prominence of the tip of the b asilar artery. Small aneurysm not excluded. 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 PROMINENCE OF THE BASILAR ARTERY TIP COULD BE ASSOCIATED WITH A SMALL ANEURYSM SHORT-TERM FOLLOW-UP [facility] [place] RECOMMENDED.
--- NOTE | 2021-09-17 14:26 | P.PN ---
Subjective Progress Note Date: 09/17/21 Hospital course: Patient is a very pleasant 84-year-old female with a past medical history of hypertension and atrial fibrillation on Coumadin. Patient presented to the emergency department on 09/16/21 with a chief complaint of epistaxis. Patient was found to have a supratherapeutic INR of 8.4 and given vitamin K, 10 mg in the emergency department. A nasal rocket was placed. INR significantly decrease with morning labs showing INR 1.6. Hemoglobin stable at 13.2. Patient reports continued postpharyngeal bleeding from epistaxis and spitting up small amounts of blood. Nasal rocket remains in place, airway patent, and ENT consulted. Patient's son at bedside reports patient has had multiple falls over the past week, stating she loses her balance and just falls. Patient's son reports that patient hit her head on the nightstand 2 nights ago. Patient with small abrasion to right ear, CT head ordered at this time to rule out intercranial bleed. CT head showing degenerative and nonspecific white matter changes most typical of remote white matter ischemia and prominence of the basilar artery tip possibly associated with a small aneurysm with short-term follow-up recommended with neurologist for [facility] [place] [facility] [place]. Physical exam: Vital signs reviewed and stable. General: Nontoxic, no distress and appears stated age. Derm: Skin warm and dry, normal coloration for ethnicity. Head: Atraumatic, normocephalic and symmetric. Small abrasion to the auricle of right ear. Nasal rocket in place to right nares Eyes: EOMs intact, no lid lag, and anicteric sclera Mouth: no lip lesions, mucus membranes moist Cardiovascular: regular rate and rhythm with normal S1S2, no murmur, positive posterior tibial pulses bilaterally, and cap refill < 2 seconds. Lungs: Respirations even, regular, and unlabored on room air. Lungs CTA bilaterally, no rhonchi, no rales, no wheezing, and no accessory muscle usage. Abdominal: soft, nontender to palpation, no guarding, no appreciable organomegaly Ext: ROM intact. No gross muscle atrophy, no edema, no contractures Neuro: Speech clear, face symmetrical and CN II-XII grossly intact with no noted focal neuro deficits Psych: Alert and oriented to person, place, time, and situation. Appropriate and pleasant affect. Assessment and Plan of Care: Refractory recurrent epistaxis with supratherapeutic INR -Intranasal packing in place -Hemoglobin stable. -INR subtherapeutic at 1.6 after receiving 10 mg vitamin K from previous 8.4 -Patient placed on Augmentin 500/125 mg every 12 hours. -Patient reports she continues to spit up small amounts of bright red blood draining from posterior nares, ENT consulted at this time. -Continue to follow up and monitor hemoglobin levels. -Aspiration precautions in place. Recurrent falls -CT head showing degenerative and nonspecific white matter changes most typical of remote white matter ischemia and prominence of the basilar artery tip possibly associated with a small aneurysm with short-term follow-up recommended with neurologist for [facility] [place]. -Patient will be referred to neurologist upon discharge for outpatient with short-term follow-up. -PT/OT evaluation Atrial fibrillation on Coumadin -Hold Coumadin for now patient as patient reports continued bleeding from posterior nares despite receiving vitamin K and decreasing INR from 8.4 down to 1.6. -Patient status post 10 mg vitamin K due to refractory epistaxis -Continue rate control medications with digoxin and metoprolol. Hypertension Monitor vital signs and continue daily medication regimen with valsartan, metoprolol, and digoxin. Hyperlipidemia -Continue daily medication regimen with atorvastatin 10 mg nightly. Hypothyroidism Continue daily medication regimen with levothyroxine. CODE STATUS: Full code DVT prophylaxis: SCDs Discussed with: Patient, patient's son, and RN Anticipated discharge date: Clinical course to determine Anticipated discharge place: Home A total of 45 minutes was spent on the care of this complex patient more than 50% of the time was spent in counseling and care coordination. Objective - Vital Signs Vital signs: Vital Signs Temp 96.8 F L 09/17/21 01:01 Pulse 104 H 09/17/21 04:00 Resp 20 09/17/21 04:00 BP 146/71 09/17/21 04:00 Pulse Ox 94 L 09/17/21 04:00 Intake & Output 09/16/21 09/17/21 09/17/21 18:59 06:59 18:59 Weight 71.214 kg 71.214 kg Other: # Voids 1 - Labs CBC & Chem 7: 09/17/21 07:47 09/17/21 04:37 Labs: Abnormal Lab Results - Last 24 Hours (Table) 09/16/21 09/17/21 09/17/21 Range/Units 16:25 04:37 04:37 PT 82.0 H 17.3 H (9.0-12.0) sec INR 8.4 H* 1.7 H (<1.2) Sodium 136 L (137-145) mmol/L BUN 34 H (7-17) mg/dL
[2021-09-17] MEDS: AMOXIC-POT CLAV 500-125 MG 1 EACH TAB PO SCH ×2 (16:36→23:48)
[2021-09-17] MEDS: ATORVASTATIN 10 MG TAB PO SCH (22:20)
[2021-09-17] MEDS: PRAMIPEXOLE 0.25 MG TAB PO SCH (22:20)
[2021-09-17] MEDS: LOSARTAN 25 MG TAB PO SCH (23:53)
[2021-09-18] MEDS: OXYBUTYNIN 10 MG TAB.ER.24 PO SCH ×2 (01:45→21:28)
[2021-09-18] MEDS: LEVOTHYROXINE 50 MCG TAB PO SCH (05:48)
[2021-09-18 07:50] LABS: HCT 37.6 % (34.0-46.0); HGB 12.7 gm/dL (11.4-16.0); MCH 30.5 pg (25.0-35.0); MCHC 33.7 g/dL (31.0-37.0); MCV 90.6 fL (80.0-100.0); Mean Platelet Volume 7.5; Platelet Count 193 k/uL (150-450); RBC 4.16 m/uL (3.80-5.40); RDW 13.8 % (11.5-15.5); WBC 8.1 k/uL (3.8-10.6)
[2021-09-18 08:04] LABS: Calcium 9.5 mg/dL (8.4-10.2); Magnesium 2.2 mg/dL (1.6-2.3)
[2021-09-18] MEDS: AMOXIC-POT CLAV 500-125 MG 1 EACH TAB PO SCH ×2 (10:52→21:28)
[2021-09-18] MEDS: METOPROLOL TARTRATE 50 MG TAB PO SCH ×2 (10:52→21:28)
[2021-09-18] MEDS: DIGOXIN 125 MCG TAB PO SCH (10:52)
--- NOTE | 2021-09-18 11:29 | P.PN ---
Subjective Progress Note Date: 09/18/21 Hospital course: Patient is a very pleasant 84-year-old female with a past medical history of hypertension and atrial fibrillation on Coumadin. Patient presented to the emergency department on 09/16/21 with a chief complaint of epistaxis. Patient was found to have a supratherapeutic INR of 8.4 and given vitamin K, 10 mg in the emergency department. A nasal rocket was placed. INR significantly decrease with morning labs showing INR 1.6. Hemoglobin stable at 13.2. Patient reports continued postpharyngeal bleeding from epistaxis and spitting up small amounts of blood. Nasal rocket remains in place, airway patent, and ENT consulted. Patient's son at bedside reports patient has had multiple falls over the past week, stating she loses her balance and just falls. Patient's son reports that patient hit her head on the nightstand 2 nights ago. Patient with small abrasion to right ear, CT head ordered at this time to rule out intercranial bleed. CT head showing degenerative and nonspecific white matter changes most typical of remote white matter ischemia and prominence of the basilar artery tip possibly associated with a small aneurysm with short-term follow-up recommended with neurologist for [facility] [place] [facility] [place]. Physical exam: Patient was seen and fully evaluated at the bedside. She continues to have intermittent episodes of blood seeping around nasal packing, but airway remains patent. Hemoglobin is stable at 12.7 with last INR of 1.6 and and repeat INR pending. Patient denies having any headache, lightheadedness, dizziness, chest pain, palpitations, shortness of breath, nausea, or any other complaints at this time. Had long discussion with patient's son at bedside regarding resuming anticoagulation upon discharge and the risks versus benefits with patient's history of recurrent falls, patient's son stating he will discuss further amongst his brother and sister. Patient was seen by ENT specialist, Dr. Ying, nasal packing to be removed tomorrow and patient will then need to be monitored for an additional 24 hours to observe for recurrent bleeding. Vital signs reviewed and stable. General: Nontoxic, no distress and appears stated age. Derm: Skin warm and dry, normal coloration for ethnicity. Head: Atraumatic, normocephalic and symmetric. Small abrasion to the auricle of right ear. Nasal rocket in place to right nares Eyes: EOMs intact, no lid lag, and anicteric sclera Mouth: no lip lesions, mucus membranes moist Cardiovascular: regular rate and rhythm with normal S1S2, no murmur, positive posterior tibial pulses bilaterally, and cap refill < 2 seconds. Lungs: Respirations even, regular, and unlabored on room air. Lungs CTA bilaterally, no rhonchi, no rales, no wheezing, and no accessory muscle usage. Abdominal: soft, nontender to palpation, no guarding, no appreciable organomegaly Ext: ROM intact. No gross muscle atrophy, no edema, no contractures Neuro: Speech clear, face symmetrical and CN II-XII grossly intact with no noted focal neuro deficits Psych: Alert and oriented to person, place, and situation. Appropriate and pleasant affect. Assessment and Plan of Care: Refractory recurrent epistaxis with supratherapeutic INR -Intranasal packing in place -Hemoglobin stable. -INR subtherapeutic at 1.6 after receiving 10 mg vitamin K from previous 8.4 -Patient placed on Augmentin 500/125 mg every 12 hours. -Patient reports she continues to spit up small amounts of bright red blood draining from posterior nares, ENT consulted at this time. -Continue to follow up and monitor hemoglobin levels. -Aspiration precautions in place. Recurrent falls -CT head showing degenerative and nonspecific white matter changes most typical of remote white matter ischemia and prominence of the basilar artery tip possibly associated with a small aneurysm with short-term follow-up recommended with neurologist for [facility] [place] [facility] [place]. 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 Atrial fibrillation on Coumadin -Hold Coumadin for now patient as patient reports continued bleeding from posterior nares despite receiving vitamin K and decreasing INR from 8.4 down to 1.6. -Had discussion with family regarding risks and benefits of continuing a nticoagulation upon discharge with patient's recurrent falls and recent supratherapeutic INR, family is discussing amongst themselves and we will discuss further prior to discharge. -Patient status post 10 mg vitamin K due to refractory epistaxis -Continue rate control medications with digoxin and metoprolol. Hypertension Monitor vital signs and continue daily medication regimen with valsartan, metoprolol, and digoxin. Hyperlipidemia -Continue daily medication regimen with atorvastatin 10 mg nightly. Hypothyroidism Continue daily medication regimen with levothyroxine. CODE STATUS: Full code DVT prophylaxis: SCDs Discussed with: Patient, patient's son, and RN Anticipated discharge date: Clinical course to determine, possibly Thursday Anticipated discharge place: Home A total of 45 minutes was spent on the care of this complex patient more than 50% of the time was spent in counseling and care coordination. Objective - Vital Signs Vital signs: Vital Signs Temp 97.7 F 09/18/21 04:00 Pulse 72 09/18/21 04:00 Resp 16 09/18/21 04:00 BP 110/71 09/18/21 04:00 Pulse Ox 98 09/18/21 04:00 Intake & Output 09/17/21 09/18/21 09/18/21 18:59 06:59 18:59 Intake Total 280 240 Balance 280 240 Weight 68.9 kg 68.5 kg Intake: IV 20 0.9 20 Oral 260 240 Other: Voiding Method Toilet Toilet # Voids 1 # Bowel Movements 1 - Labs CBC & Chem 7: 09/18/21 07:24 09/18/21 07:24 Labs: Abnormal Lab Results - Last 24 Hours (Table) 09/17/21 Range/Units 07:47 PT 15.7 H (9.0-12.0) sec INR 1.6 H (<1.2)
[2021-09-18 11:40] LABS: Prothrombin Time 10.7 sec (9.0-12.0)
[2021-09-18] MEDS: PRAMIPEXOLE 0.25 MG TAB PO SCH (21:28)
[2021-09-18] MEDS: ATORVASTATIN 10 MG TAB PO SCH (21:28)
[2021-09-18] MEDS: LOSARTAN 25 MG TAB PO SCH (21:28)
[2021-09-19] MEDS: LEVOTHYROXINE 50 MCG TAB PO SCH (06:15)
[2021-09-19] MEDS: METOPROLOL TARTRATE 50 MG TAB PO SCH ×2 (08:30→22:46)
[2021-09-19] MEDS: AMOXIC-POT CLAV 500-125 MG 1 EACH TAB PO SCH ×2 (08:30→22:46)
[2021-09-19] MEDS: DIGOXIN 125 MCG TAB PO SCH (08:30)
--- NOTE | 2021-09-19 08:42 | CONS ---
CONSULTATION REASON FOR CONSULTATION: Epistaxis. DATE OF CONSULTATION: 09/18/2021 HISTORY OF PRESENT ILLNESS: The patient is a very pleasant 89-year-old female who was admitted via the [facility] Emergency Room for uncontrolled epistaxis. The patient states that on the morning of 09/16/2021, she developed a nosebleed from the right side. The patient is known to have atrial fibrillation and hypertension and is currently on Coumadin. Attempts by the patient and her son to stop the bleeding at home were not successful and therefore the patient proceeded to the emergency room department. At the time that she was seen in emergency room department, they were not able to locate the actual site of bleeding and therefore they inserted a Merocel nasal tampon packing into the right nares and admitted the patient for further treatment. I was consulted by the nursing staff and is to be noted that the patient since her admission has not had any further bleeding episodes. PAST MEDICAL HISTORY: Past medical history reveals patient has no known allergies to medications. MEDICATIONS: Her current medications include Lanoxin, Synthroid, Lopressor , Zocor, Coumadin, Lasix, Mirapex, and Ditropan. REVIEW OF SYSTEMS: Reveals that the cardiovascular system is positive for hypertension, ASHD, and atrial fibrillation. RESPIRATORY SYSTEM: Is negative. Metabolic Endocrine System: Is positive for hypercholesterolemia and hypo thyroidism. The remainder of the review of systems is essentially noncontributory. PHYSICAL EXAMINATION: Patient is 89-year-old female who was alert, cooperative and is in no acute distress. She is well oriented to time and place. She is not actively bleeding at this time. HEENT examination: Patient is normocephalic. Tympanic membranes are normal. Middle ear spaces are free of any fluid or infection. Pupils equal, round, react to light and accommodation. Extraocular movements within normal limits. Intranasal examination reveals that the right nasal chamber is packed with a Merocel packing. Examination of the left nasal chamber does not reveal any active bleeding. Examination of oropharynx does not reveal any bleeding down the posterior pharyngeal wall. Cranial nerves 2 through 12 and remainder of the head and neck exam are within normal limits. Chest/cardiovascular: Both lung mccracken are clear to percussion and auscultation. Patient is in regular sinus rhythm S1, S2 are present. No murmurs S3s or S4 remain. Peripheral pulses are bilaterally symmetrical. Abdomen is no evidence any masses megaly or tenderness. The abdomen is soft. The remainder of physical exam is unremarkable. ASSESSMENT: Right anterior-posterior right epistaxis. PLAN: I would like to leave the nasal packing in until the 09/12/1809/19/2021. At that time I will remove the nasal packing on afternoon and start the patient on an appropriate nasal spray regimen. Assuming she does not have any further bleeding 24 hours after I removed the packing that she would be able to go home with very specific instructions. In addition to this, it was noted the patient was advised to stop using Q-Tips to clean her ears because she has developed eczematoid external otitis. This is a dry scaly, itching condition which is known to be caused by the patient's using Q- tips, peroxide, alcohol, etc. to clean the ears. I am leaving her a prescription for a medication, DermOtic oil 20 mL 5 drops in the affected ear b.i.d. p.r.n. for itching with 6 refills. I will see the patient on , 09/19/2021 and at that time we will remove the packing. I will continue to follow this patient with you while she is in the hospital. I want to take this opportunity to thank you for allowing me to assist in the care of your patient. If I could be of any further assistance, please feel free to call my office. GURINDER / ROSS: [id number] / PABLITO
[2021-09-19 09:18] LABS: HCT 34.5 % (34.0-46.0); HGB 11.5 gm/dL (11.4-16.0); MCH 30.3 pg (25.0-35.0); MCHC 33.2 g/dL (31.0-37.0); MCV 91.3 fL (80.0-100.0); Mean Platelet Volume 7.3; Platelet Count 177 k/uL (150-450); RBC 3.78 m/uL (3.80-5.40); RDW 13.8 % (11.5-15.5); WBC 5.8 k/uL (3.8-10.6)
[2021-09-19 09:31] LABS: Calcium 9.2 mg/dL (8.4-10.2); Magnesium 2.2 mg/dL (1.6-2.3); Potassium 3.9 mmol/L (3.5-5.1)
[2021-09-19 09:37] LABS: Prothrombin Time 10.3 sec (9.0-12.0)
[2021-09-19] MEDS: OXYMETAZOLINE 0.05% NASL SPRAY 1 SPRAY BOTTLE NASAL SCH ×3 (11:26→22:47)
--- NOTE | 2021-09-19 12:33 | P.PN ---
Subjective Progress Note Date: 09/19/21 Hospital course: Patient is a very pleasant 84-year-old female with a past medical history of hypertension and atrial fibrillation on Coumadin. Patient presented to the emergency department on 09/16/21 with a chief complaint of epistaxis. Patient was found to have a supratherapeutic INR of 8.4 and given vitamin K, 10 mg in the emergency department. A nasal rocket was placed. INR significantly decrease with morning labs showing INR 1.6. Hemoglobin stable at 13.2. Patient reports continued postpharyngeal bleeding from epistaxis and spitting up small amounts of blood. Nasal rocket remains in place, airway patent, and ENT consulted. Patient's son at bedside reports patient has had multiple falls over the past week, stating she loses her balance and just falls. Patient's son reports that patient hit her head on the nightstand 2 nights ago. Patient with small abrasion to right ear, CT head ordered at this time to rule out intercranial bleed. 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 Physical exam: Patient was seen and fully evaluated at the bedside. She denies having any further bleeding from nares, she reports nasal packing feels uncomfortable but otherwise denies having any complaints or concerns at this time. she continues to deny having any headache, lightheadedness, dizziness, chest pain, palpitations, shortness of breath, nausea, or any other complaints. INR 1.0, hemoglobin stable at 11.5. vital signs unremarkable. Tentative plans for Dr. Ying to remove nasal packing later today. Patient will then need to be monitored for an additional 24 hours to observe for recurrent bleeding. Vital signs reviewed and stable. General: Nontoxic, no distress and appears stated age. Derm: Skin warm and dry, normal coloration for ethnicity. Head: Atraumatic, normocephalic and symmetric. Small abrasion to the auricle of right ear. Nasal rocket in place to right nares Eyes: EOMs intact, no lid lag, and anicteric sclera Mouth: no lip lesions, mucus membranes moist Cardiovascular: regular rate and rhythm with normal S1S2, no murmur, positive posterior tibial pulses bilaterally, and cap refill < 2 seconds. Lungs: Respirations even, regular, and unlabored on room air. Lungs CTA bilaterally, no rhonchi, no rales, no wheezing, and no accessory muscle usage. Abdominal: soft, nontender to palpation, no guarding, no appreciable organomegaly Ext: ROM intact. No gross muscle atrophy, no edema, no contractures Neuro: Speech clear, face symmetrical and CN II-XII grossly intact with no noted focal neuro deficits Psych: Alert and oriented to person, place, and situation. Appropriate and pleasant affect. Assessment and Plan of Care: Refractory recurrent epistaxis with supratherapeutic INR -Intranasal packing in place -Hemoglobin stable. -INR initially 8.4 and was given vit K -Patient placed on Augmentin 500/125 mg every 12 hours. -ENT plans to remove nasal packing later this afternoon, we will monitor for any signs of bleeding over the next 24 hours. -Continue to follow up and monitor hemoglobin levels. -Aspiration precautions in place. Recurrent falls -CT head showing degenerative and nonspecific white matter changes most typical of remote white matter ischemia and prominence of the basilar artery tip poss ibly associated with a small aneurysm with short-term follow-up recommended with neurologist for [facility] [place] [facility] [place]. 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 Atrial fibrillation on Coumadin -Hold Coumadin for now patient as patient reports continued bleeding from posterior nares despite receiving vitamin K and decreasing INR from 8.4 down to 1.6. -Had discussion with family regarding risks and benefits of continuing anticoagulation upon discharge with patient's recurrent falls and recent supratherapeutic INR, family is discussing amongst themselves and we will discuss further prior to discharge. -Patient status post 10 mg vitamin K due to refractory epistaxis -Continue rate control medications with digoxin and metoprolol. Hypertension Monitor vital signs and continue daily medication regimen with valsartan, metoprolol, and digoxin. Hyperlipidemia -Continue daily medication regimen with atorvastatin 10 mg nightly. Hypothyroidism Continue daily medication regimen with levothyroxine. CODE STATUS: Full code DVT prophylaxis: SCDs Discussed with: Patient and RN Anticipated discharge date: Clinical course to determine, possibly tomorrow Anticipated discharge place: Home A total of 45 minutes was spent on the care of this complex patient more than 50% of the time was spent in counseling and care coordination. Objective - Vital Signs Vital signs: Vital Signs Temp 97.6 F 09/19/21 04:00 Pulse 84 09/19/21 04:00 Resp 16 09/19/21 04:00 BP 97/56 09/19/21 04:00 Pulse Ox 95 09/19/21 04:00 Intake & Output 09/18/21 09/19/21 09/19/21 18:59 06:59 18:59 Intake Total 540 Balance 540 Weight 70 kg Intake: Oral 540 Other: Voiding Method Toilet Toilet # Voids 2 1 - Labs CBC & Chem 7: 09/19/21 08:45 09/19/21 08:45 Labs: Abnormal Lab Results - Last 24 Hours (Table) 09/18/21 Range/Units 07:24 BUN 19 H (7-17) mg/dL Glucose 102 H (74-99) mg/dL
[2021-09-19] MEDS: LOSARTAN 25 MG TAB PO SCH (22:46)
[2021-09-19] MEDS: ATORVASTATIN 10 MG TAB PO SCH (22:46)
[2021-09-19] MEDS: PRAMIPEXOLE 0.25 MG TAB PO SCH (22:47)
[2021-09-19] MEDS: OXYBUTYNIN 10 MG TAB.ER.24 PO SCH (22:47)
[2021-09-20] MEDS: LEVOTHYROXINE 50 MCG TAB PO SCH ×2 (06:28→10:12)
[2021-09-20 06:44] LABS: Glucose,Whole Blood 103 mg/dL (75-99)
[2021-09-20 08:17] LABS: HGB 11.8 gm/dL (11.4-16.0); MCH 29.8 pg (25.0-35.0); MCHC 32.7 g/dL (31.0-37.0); MCV 90.9 fL (80.0-100.0); Mean Platelet Volume 7.3; Platelet Count 174 k/uL (150-450); RBC 3.96 m/uL (3.80-5.40); RDW 13.7 % (11.5-15.5); WBC 6.5 k/uL (3.8-10.6)
[2021-09-20 08:34] LABS: Prothrombin Time 10.5 sec (9.0-12.0)
[2021-09-20] MEDS: DIGOXIN 125 MCG TAB PO SCH (10:12)
[2021-09-20] MEDS: OXYMETAZOLINE 0.05% NASL SPRAY 1 SPRAY BOTTLE NASAL SCH ×3 (10:12→22:29)
[2021-09-20] MEDS: AMOXIC-POT CLAV 500-125 MG 1 EACH TAB PO SCH ×2 (10:12→22:29)
[2021-09-20] MEDS: METOPROLOL TARTRATE 50 MG TAB PO SCH (10:12)
--- NOTE | 2021-09-20 11:04 | PN ---
PROGRESS NOTE DATE OF SERVICE: 09/19/2021. SUBJECTIVE: Vital signs stable. Patient has not had any further bleeding. OBJECTIVE: The right nasal tampon was noted to be intact in the right naris. This was removed in an atraumatic fashion and was found to not have any signs of acute bleeding present. Intranasal examination did not reveal any active intranasal bleeding, either. Several puffs of Afrin nasal spray were sprayed into the right naris and a mustache dressing was applied. ASSESSMENT: Right anterior-posterior epistaxis. PLAN: At this point, if the patient does not bleed any further in the next 24 hours, then it should be okay for her to be discharged to home tomorrow afternoon, 09/20/2021. I will advise her to continue with the Afrin nasal spray twice daily for another 7 days. After 7 days, she may stop using the Afrin nasal spray. I will ask her to call my office on Thursday09/23/2021 and make an appointment to be seen in approximately 3 weeks. The nursing staff should give her several oval eye patches and tape to take home as well as the remaining portions of Afrin. Her family has already filled her prescription to treat her itchy ears; this will be done with DermOtic oil. She will be instructed not to blow her nose, pick her nose, and if she has to sneeze, she should do so with her mouth open. Any mucus that she has in her nose she should simply sniff back and spit it out. It will be okay for her take baths and shower. With respect to her blood thinner, hopefully the medical staff will find a more current anticoagulant so that the patient does not have to use Coumadin, which is fairly hard to monitor. Whatever blood thinner they decide to use, if it is possible that she can stay off of the blood thinner until Thursday09/22/2021, that would be great. After Thursday, then she may resume the blood thinner. However, if it is critical that she remain on a blood thinner because of her cardiac arrhythmia, then she will have to remain on it and hopefully she will not have any further bleeding. I will see the patient tomorrow and give her and the nursing staff the appropriate instructions, and I will see her in my office in approximately 3 weeks. MMODL / IJN: [id number] / PABLITO
--- NOTE | 2021-09-20 11:19 | P.PN ---
Subjective Progress Note Date: 09/20/21 Hospital course: Patient is a very pleasant 84-year-old female with a past medical history of hypertension and atrial fibrillation on Coumadin. Patient presented to the emergency department on 09/16/21 with a chief complaint of epistaxis. Patient was found to have a supratherapeutic INR of 8.4 and given vitamin K, 10 mg in the emergency department. A nasal rocket was placed. INR significantly decrease with morning labs showing INR 1.6. Hemoglobin stable at 13.2. Patient reports continued postpharyngeal bleeding from epistaxis and spitting up small amounts of blood. Nasal rocket remains in place, airway patent, and ENT consulted. Patient's son at bedside reports patient has had multiple falls over the past week, stating she loses her balance and just falls. Patient's son reports that patient hit her head on the nightstand 2 nights ago. Patient with small abrasion to right ear, CT head ordered at this time to rule out intercranial bleed. 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 Physical exam: Patient was seen and fully evaluated at the bedside. Nasal packing was removed yesterday afternoon by ENT physician. Patient has had no further episodes of bleeding. Patient reports feeling great this morning. She is a little more slow to respond and per son at bedside, this is her baseline and she will wax and wane from this due to her dementia. Pt is alert to person, place, and situation. She denies having any headache, lightheadedness, dizziness, chest pain, palpitations, shortness of breath, or experiencing any numbness/tingling/weakness in her extremities. Had another long talk with family yesterday afternoon regarding risks versus benefits of resuming anticoagulation and family discussed amongst each other and with her mother last night. Patient and family at bedside state they would like to resume anticoagulation, but would like to try a different medication. Script for Eliquis sent down to pharmacy for sylvester check per pt and family's request at this time. Patient may begin anticoagulation with Eliquis this evening and we will continue to monitor overnight to ensure no recurrence of epistaxis and plan for discharge tomorrow morning. Patient being placed on Eliquis 2.5 mg BID secondary to age and history of bleeding. Vital signs reviewed and stable. General: Nontoxic, no distress and appears stated age. Derm: Skin warm and dry, normal coloration for ethnicity. Head: Atraumatic, normocephalic and symmetric. Small abrasion to the auricle of right ear. Nasal rocket in place to right nares Eyes: EOMs intact, no lid lag, and anicteric sclera Mouth: no lip lesions, mucus membranes moist Cardiovascular: regular rate and rhythm with normal S1S2, no murmur, positive posterior tibial pulses bilaterally, and cap refill < 2 seconds. Lungs: Respirations even, regular, and unlabored on room air. Lungs CTA bilaterally, no rhonchi, no rales, no wheezing, and no accessory muscle usage. Abdominal: soft, nontender to palpation, no guarding, no appreciable organomegaly Ext: ROM intact. No gross muscle atrophy, no edema, no contractures Neuro: Speech clear, face symmetrical and CN II-XII grossly intact with no noted focal neuro deficits Psych: Alert and oriented to person, place, and situation. Appropriate and pleasant affect. Assessment and Plan of Care: Refractory recurrent epistaxis with supratherapeutic INR -Intranasal packing removed yesterday afternoon, no recurrence of bleeding -Hemoglobin stable.11.8 -INR initially 8.4 and was given vit K -Patient placed on Augmentin 500/125 mg every 12 hours. -ENT plans to remove nasal packing later this afternoon, we will monitor for any signs of bleeding over the next 24 hours. -Continue to follow up and monitor hemoglobin levels. -Aspiration precautions in place. Recurrent falls -CT head showing degenerative and nonspecific white matter changes most typical of remote white matter ischemia and prominence of the basilar artery tip chema william associated with a small aneurysm with short-term follow-up recommended with neurologist for [facility] [place] [facility] [place]. 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 Atrial fibrillation on Coumadin -Hold Coumadin for now patient as patient reports continued bleeding from posterior nares despite receiving vitamin K and decreasing INR from 8.4 down to 1.6. -Had discussion with family regarding risks and benefits of continuing anticoagulation upon discharge with patient's recurrent falls and recent supratherapeutic INR, family is discussing amongst themselves and we will discuss further prior to discharge. -Patient status post 10 mg vitamin K due to refractory epistaxis -Continue rate control medications with digoxin and metoprolol. Hypertension Monitor vital signs and continue daily medication regimen with valsartan, metoprolol, and digoxin. Hyperlipidemia -Continue daily medication regimen with atorvastatin 10 mg nightly. Hypothyroidism Continue daily medication regimen with levothyroxine. CODE STATUS: Full code DVT prophylaxis: SCDs Discussed with: Patient and RN Anticipated discharge date: Clinical course to determine, possibly tomorrow Anticipated discharge place: Home A total of 45 minutes was spent on the care of this complex patient more than 50% of the time was spent in counseling and care coordination. Objective - Vital Signs Vital signs: Vital Signs Temp 97.6 F 09/20/21 08:00 Pulse 62 09/20/21 08:00 Resp 20 09/20/21 08:00 BP 102/66 09/20/21 08:00 Pulse Ox 95 09/20/21 08:00 Intake & Output 09/19/21 09/20/21 09/20/21 18:59 06:59 18:59 Intake Total 880 120 Balance 880 120 Weight 70.3 kg Intake: Oral 880 120 Other: Voiding Method Toilet # Voids 1 1 2 - Labs CBC & Chem 7: 09/20/21 07:43 09/19/21 08:45 Labs: Abnormal Lab Results - Last 24 Hours (Table) 09/20/21 Range/Units 06:29 POC Glucose (mg/dL) 103 H (75-99) mg/dL
[2021-09-20 12:12] LABS: Glucose,Whole Blood 84 mg/dL (75-99)
[2021-09-20 16:27] LABS: Glucose,Whole Blood 155 mg/dL (75-99)
[2021-09-20 20:16] LABS: Glucose,Whole Blood 131 mg/dL (75-99)
[2021-09-20] MEDS: APIXABAN 2.5 MG TABLET PO SCH (22:28)
[2021-09-20] MEDS: PRAMIPEXOLE 0.25 MG TAB PO SCH (22:29)
[2021-09-20] MEDS: LOSARTAN 25 MG TAB PO SCH (22:29)
[2021-09-20] MEDS: METOPROLOL TARTRATE 25 MG TAB PO SCH (22:29)
[2021-09-20] MEDS: ATORVASTATIN 10 MG TAB PO SCH (22:29)
[2021-09-20] MEDS: OXYBUTYNIN 10 MG TAB.ER.24 PO SCH (22:29)
[2021-09-21] MEDS: LEVOTHYROXINE 50 MCG TAB PO SCH (06:18)
[2021-09-21 06:46] LABS: Glucose,Whole Blood 109 mg/dL (75-99)
--- NOTE | 2021-09-21 08:29 | PN ---
PROGRESS NOTE DATE OF SERVICE: 09/20/2021 SUBJECTIVE: Vital signs stable. The patient has not had any further bleeding since the packing was removed yesterday. She was recently started on a new blood thinner, Eliquis. Apparently the medical staff would like to keep her in the hospital for an additional 24 hours to make sure that this medication is stabilized in her system. OBJECTIVE: HEENT: Patient is normocephalic. Tympanic membranes are normal. Examination of the right nostril reveals no evidence of any active bleeding. Previous bleeding sites can be seen anteriorly and superiorly and posteriorly. Remainder of the head and neck exam, chest and cardiovascular exam, etc. are all unchanged since her initial examination. ASSESSMENT: Right anterior posterior epistaxis. PLAN: I have written detailed instructions in the patient's discharge homegoing activity section of her discharge instructions. Essentially, I have spoken with the patient in the presence of her nurse and advised that she should continue using the Afrin nasal spray 2 puffs in the right nostril three times daily (morning, dinner and at bedtime), until Thursday09/22/2021. Once she has stopped using the Afrin nasal spray, I advised her that she should not blow her nose or pick her nose. If she has to sneeze, she should do so with her mouth open so that the force of the sneeze will come will come out through her mouth. This is to avoid stirring up any further bleeding intranasally. It is okay for to take baths, shower and shampoo her hair as usual. I gave the patient and her son one of my business cards and advised her to call my office on Thursday09/23/2021, and at that time request an appointment for approximately 3 weeks from the time of her discharge. I have left a prescription for Ceftin tablets 500 mg, which she should take twice daily beginning on the evening after she arrives home and continue taking until it is completely gone, that is to say for 7 days. The purpose of this is to prevent any type of sinus infection that may occur due to residual blood that is left in the right maxillary sinus. I advised the patient that should she develop any bleeding at home, this generally can be controlled by applying pressure, or she may spray some of the Afrin on a cotton ball and insert that in the bleeding nostril and apply pressure for 3 minutes. Generally this will stop most bleeding episodes. All of the patient's questions and her son's questions were answered. I want to take this opportunity again to thank you for allowing me to assist in the care of your patient. Sincerely, Dr. Odell Ying. ADDENDUM: From an ENT standpoint, it is okay for this patient to be discharged at any time. MMODL / IJN: [id number] /
[2021-09-21 08:43] LABS: Basophils # (A) 0.1 k/uL (0-0.2); Basophils % (A) 1 %; Eosinophils # (A) 0.2 k/uL (0-0.7); Eosinophils % (A) 3 %; HGB 12.6 gm/dL (11.4-16.0); Lymphocytes # (A) 2.1 k/uL (1.0-4.8); Lymphocytes % (A) 28 %; MCH 30.1 pg (25.0-35.0); MCHC 33.2 g/dL (31.0-37.0); MCV 90.5 fL (80.0-100.0); Mean Platelet Volume 7.4; Monocytes # (A) 0.4 k/uL (0-1.0); Monocytes % (A) 6 %; Neutrophils # (A) 4.5 k/uL (1.3-7.7); Neutrophils % (A) 61 %; Platelet Count 211 k/uL (150-450); RDW 13.8 % (11.5-15.5); WBC 7.4 k/uL (3.8-10.6)
[2021-09-21] MEDS: METOPROLOL TARTRATE 25 MG TAB PO SCH (10:19)
[2021-09-21] MEDS: AMOXIC-POT CLAV 500-125 MG 1 EACH TAB PO SCH (10:19)
[2021-09-21] MEDS: DIGOXIN 125 MCG TAB PO SCH (10:20)
[2021-09-21] MEDS: OXYMETAZOLINE 0.05% NASL SPRAY 1 SPRAY BOTTLE NASAL SCH (10:20)
[2021-09-21] MEDS: APIXABAN 2.5 MG TABLET PO SCH (10:20)
[2021-09-21 11:04] VITALS: BP 118/70; PULSE 91; RESP 20; TEMP 97.8
--- NOTE | 2021-09-21 11:09 | P.DS ---
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 Patient presented to the emergency department on 09/16/21 with a chief complaint of epistaxis. Patient was found to have a supratherapeutic INR of 8.4 and given vitamin K, 10 mg in the emergency department. A nasal rocket was placed. INR significantly decrease with morning labs showing INR 1.6. Hemoglobin stable at 13.2. Patient reports continued postpharyngeal bleeding from epistaxis and spitting up small amounts of blood. Nasal rocket remains in place, airway patent, and ENT consulted. Patient's son at bedside reports patient has had multiple falls over the past week, stating she loses her balance and just falls. Patient's son reports that patient hit her head on the nightstand 2 nights ago. Patient with small abrasion to right ear, CT head ordered at this time to rule out i ntercranial bleed. 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 Patient followed by ENT provider, nasal rocket removed 09/19/21 and patient monitored for 24 hours before initiating anticoagulation with Eliquis as requested by patient and family after long discussion regarding risks and benefits of resuming anticoagulation with recurrent falls and history of bleed. Patient family chose to change anticoagulant, but as a requested patient to remain on anticoagulation for atrial fibrillation. Patient was started on Eliquis 2.5 mg twice daily secondary to age as well as previous episodes of bleeding. She was started back on anticoagulation on 09/20/21 and again monitored overnight. She had no recurrent episodes of epistaxis. Patient is stable for discharge home with her family at this time. Family understanding patient will require supervision and monitoring to prevent recurrent falls. Patient being discharged home on Afrin nasal spray to be used as directed by ENT and was given prescription for antibiotic Ceftin. Patient to follow up outpatient with ENT in 3 weeks. Patient is medically stable for discharge home. Physical exam: Patient was seen and fully evaluated at the bedside this morning, her son is at bedside. Patient had no further episodes of recurrent epistaxis overnight. Morning hemoglobin stable at 12.6. Patient is medically stable for discharge home with her son at this time. Family understanding patient is going to require supervision to prevent falls. Vital signs reviewed and stable. General: Nontoxic, no distress and appears stated age. Derm: Skin warm and dry, normal coloration for ethnicity. Head: Atraumatic, normocephalic and symmetric. Small abrasion to the auricle of right ear. Nasal rocket in place to right nares Eyes: EOMs intact, no lid lag, and anicteric sclera Mouth: no lip lesions, mucus membranes moist Cardiovascular: regular rate and rhythm with normal S1S2, no murmur, positive posterior tibial pulses bilaterally, and cap refill < 2 seconds. Lungs: Respirations even, regular, and unlabored on room air. Lungs CTA bilaterally, no rhonchi, no rales, no wheezing, and no accessory muscle usage. Abdominal: soft, nontender to palpation, no guarding, no appreciable organomegaly Ext: ROM intact. No gross muscle atrophy, no edema, no contractures Neuro: Speech clear, face symmetrical and CN II-XII grossly intact with no noted focal neuro deficits Psych: Alert and oriented to person, place, and situation. Appropriate and pleasant affect. A total of 45 minutes of time were spent preparing this complex discharge summary. Patient Condition at Discharge: Stable Plan - Discharge Summary Discharge Rx Participant: No New Discharge Prescriptions: New Apixaban [Eliquis] 2.5 mg PO BID 30 Days #60 tab Oxymetazoline 0.05% Nasl Acton [Afrin 0.05% Nasal Acton] 2 spray NASAL TID 7 Days #1 dispenser Continue Digoxin [Lanoxin] 125 mcg PO DAILY Metoprolol Tartrate [Lopressor] 50 mg PO BID Simvastatin [Zocor] 10 mg PO HS Levothyroxine Sodium [Synthroid] 50 mcg PO DAILY Pramipexole [Mirapex] 0.25 mg PO HS Furosemide [Lasix] 40 mg PO Q48H Losartan Potassium 25 mg PO HS Multivitamins, Thera [Multivitamin (formulary)] 1 tab PO DAILY Furosemide [Lasix] 20 mg PO Q48H Oxybutynin ER [Ditropan Xl] 10 mg PO HS Potassium Chloride 10 meq PO BID Discontinued Warfarin [Coumadin] 7.5 mg PO HARRIS@1700 Warfarin Sodium [Coumadin] 5 mg PO MOTUWETHSA@1700 Discharge Medication List Digoxin [Lanoxin] 125 mcg PO DAILY 04/14/16 [History] Levothyroxine Sodium [Synthroid] 50 mcg PO DAILY 04/14/16 [History] Metoprolol Tartrate [Lopressor] 50 mg PO BID 04/14/16 [History] Simvastatin [Zocor] 10 mg PO HS 04/14/16 [History] Furosemide [Lasix] 40 mg PO Q48H 05/20/19 [History] Losartan Potassium 25 mg PO HS 05/20/19 [History] Pramipexole [Mirapex] 0.25 mg PO HS 05/20/19 [History] Multivitamins, Thera [Multivitamin (formulary)] 1 tab PO DAILY 08/07/19 [History] Furosemide [Lasix] 20 mg PO Q48H 09/16/21 [History] Oxybutynin ER [Ditropan Xl] 10 mg PO HS 09/16/21 [History] Potassium Chloride 10 meq PO BID 09/16/21 [History] Apixaban [Eliquis] 2.5 mg PO BID 30 Days #60 tab 09/20/21 [Rx] Oxymetazoline 0.05% Nasl Acton [Afrin 0.05% Nasal Acton] 2 spray NASAL TID 7 Days #1 dispenser 09/21/21 [Rx] Follow up Appointment(s)/Referral(s): Lio Mariano MD [Primary Care Provider] - 1-2 days Bárbara Mauricio MD [REFERRING] - 1 Week (follow up for short term and jail monitoring and scheduling of MRA recommended of [place] due to incidental findings on the CT showing prominence of the 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 Requires supervision. Diet: Heart healthy and carb consistent diet. Avoid salts, or foods with hidden salts such as canned or boxed foods and frozen dinners. Extra salt makes your heart work harder and traps the fluid in your body for longer. Special Instructions: Take all of your medications as directed and remember to keep all of your doctor's appointments and follow-up as needed. Need to follow up outpatient with neurologist, Dr. Mauricio for scheduling of MRA of brain. Thank you for allowing us to participate in your care, it was truly a pleasure having you for our patient!!! Special ENT/Dr. Ying's home going instructions: Please continue to use the Afrin nasal spray, 2 puffs in the right nostril 3 times daily through 09/29/2021. Three times daily means that you should use the nasal spray in the morning,before dinner, and before bedtime. Avoid blowing or picking your nose. If you feel there is excess mucus in your nose then you should sniff it back and spit it out. Also, if you have to sneeze, do so by letting the force of the sneeze come out through your mouth. You will be given a prescription for an antibiotic tablet, Ceftin 500 mg, which you should begin taking on the evening after your arrive home and continued taking until it is completely gone. The purpose of this antibiotic is to prevent you from getting a sinus infection as a result of any residual blood that may be in one of your sinuses from your nosebleed. It is okay for you to shower, shampoo your hair, and take baths as usual. You should call Dr. Ying's office on 09/30/2021 and schedule an appointment to be seen approximate 3 weeks after you have been discharge from the hospital. If you should develop any bleeding at home, this can usually be stop by spraying several puffs of the Afrin nose spray up the bleeding nostril and applying pressure for 3-5 minutes. Sometimes, spraying the Afrin on a piece of cotton and placing that in your nostril and applying pressure helps. Discharge Disposition: HOME SELF-CARE
== END 2021-09-21 11:58 | disposition home or self-care (01) | DRG 151 ==
LOC: EC 13:13 → 3SCARD 18:14
PROVIDERS: ADMIT Internal Medicine; ATTEND Internal Medicine
PROC: 2Y41X5Z Packing of Nasal Region using Packing Material (ICD-10-PCS; principal; 2021-09-16)
DX: R04.0 Epistaxis (principal); E03.9 Hypothyroidism, unspecified; E78.5 Hyperlipidemia, unspecified; I10 Essential (primary) hypertension; I48.91 Unspecified atrial fibrillation; R79.1 Abnormal coagulation profile; Z20.822 Contact with and (suspected) exposure to COVID-19; Z79.899 Other long term (current) drug therapy; Z79.890 Hormone replacement therapy; Z79.01 Long term (current) use of anticoagulants
CPT/HCPCS: 30901; 36415; 70450; 80048; 83735; 85025; 85027; 85610; 87635; 99284

== ENCOUNTER 2022-01-20 13:17 | Inpatient (IN) | payer MEDICARE, BC ==
[2022-01-20 14:03] LABS: Glucose,Whole Blood 95 mg/dL (75-99)
[2022-01-20 14:29] LABS: Basophils % (A) 0 %; Eosinophils # (A) 0.1 k/uL (0-0.7); Eosinophils % (A) 2 %; HCT 45.6 % (34.0-46.0); HGB 14.8 gm/dL (11.4-16.0); Lymphocytes # (A) 1.9 k/uL (1.0-4.8); Lymphocytes % (A) 20 %; MCH 29.6 pg (25.0-35.0); MCHC 32.5 g/dL (31.0-37.0); MCV 91.1 fL (80.0-100.0); Mean Platelet Volume 7.3; Monocytes # (A) 0.6 k/uL (0-1.0); Monocytes % (A) 6 %; Neutrophils # (A) 6.6 k/uL (1.3-7.7); Neutrophils % (A) 70 %; Platelet Count 216 k/uL (150-450); RBC 5.01 m/uL (3.80-5.40); RDW 13.9 % (11.5-15.5); WBC 9.4 k/uL (3.8-10.6)
[2022-01-20 14:41] LABS: Albumin 4.7 g/dL (3.5-5.0); Calcium 9.4 mg/dL (8.4-10.2); Total Bilirubin 0.6 mg/dL (0.2-1.3); Total Protein 7.7 g/dL (6.3-8.2)
[2022-01-20 14:45] LABS: INR 0.9 (<1.2); Partial Thromboplastin Time 24.6 sec (22.0-30.0)
--- NOTE | 2022-01-20 14:50 | CT ---
EXAMINATION TYPE: CT brain wo con for TPA DATE OF EXAM: 01/20/2022 COMPARISON: CT dated 09/17/2021 HISTORY: Fall in shower today, right facial injury. CT DLP: 1016.5 mGycm Automated exposure control for dose reduction was used. TECHNIQUE: CT scan of the brain is performed without IV contrast administration. FINDINGS: Brain volume loss changes, likely age-related. Bilateral cerebral white matter hypodensities, likely representing chronic microvascular ischemic changes. Scattered arterial atherosclerotic calcification s. No acute intracranial hemorrhage. No gross acute cortical infarct. No midline shift, herniation or ve ntriculomegaly. Unremarkable basal cisterns, sella and CP angles. No gross space-occupying lesion, vasogenic edema or mass effect. No gross orbital abnormality. Right high parietal scalp swelling/hematoma. Clear mastoid air cells. O steopenia. No definite acute calvarial bone fracture identified. IMPRESSION: No acute intracranial hemorrhage or gross acute cortical infarct however a small acute or hyperacute infarct can't be excluded. Brain volume loss changes and chronic ischemic changes. Right high parietal scalp hematoma/swelling.
--- NOTE | 2022-01-20 15:00 | CT ---
EXAMINATION TYPE: CT facial bones wo con DATE OF EXAM: 01/20/2022 COMPARISON: CT dated 09/17/2021 HISTORY: Fall in shower today, right facial injury. CT DLP: Inc. In brain mGycm Automated exposure control for dose reduction was used. TECHNIQUE: CT scan of the facial bones is performed without contrast, axial images are obtained, leta nal reformatted images are also reviewed. FINDINGS: No definite acute facial bone fracture identified. Diffuse osteopenia. Clear visualized par anasal sinuses and mastoid cells. Right facial soft tissue swelling. Unremarkable orbits. IMPRESSION: Right facial soft tissue swelling. No definite acute facial bone fracture identified.
--- NOTE | 2022-01-20 15:06 | CT ---
EXAMINATION TYPE: CT cervical spine wo con DATE OF EXAM: 01/20/2022 COMPARISON: CT dated 08/07/2019 HISTORY: Fall in shower today, right facial injury. CT DLP: Inc. In brain mGycm Automated exposure control for dose reduction was used. TECHNIQUE: CT scan of the cervical spine is obtained without contrast, axial images are obtained, sa gittal and coronal reformatted images are also reviewed. FINDINGS: Diffuse osteopenia. Anterolisthesis of C4 over C5, likely degenerative. No definite vertebral body co llapse or acute displaced fracture. Unremarkable atlantoaxial and atlantooccipital articulations. No facet dislocation or significant subluxation. Severe degenerative changes at C5-6 and C6-7 levels. Multilevel facet osteoarthropathy. Mild right C3 -4, severe left C4-5, severe left C5-6 and moderate to severe left C6-7 neuroforaminal stenosis. Cent ral spinal canal stenosis is seen at C5-6 and C6-7 levels. Scattered arterial atherosclerotic calcifications. 2.3 cm right thyroid lobe hypodense lesion, for co rrelation with thyroid ultrasound results. No paraspinal lesion. IMPRESSION: No acute traumatic bony injury of the cervical spine. Advanced degenerative changes of the cervical s pine and other incidental findings as described above.
--- NOTE | 2022-01-20 15:12 | XR ---
EXAMINATION TYPE: XR chest 1V portable DATE OF EXAM: 01/20/2022 COMPARISON: 05/23/2019 HISTORY: Altered mental status TECHNIQUE: Single frontal view of the chest is obtained. FINDINGS: Arthropathy of the shoulders with diffuse osteopenia. Heart size mildly prominent and ther e is changes of COPD. Coarsened interstitium can be associated with chronic interstitial lung disease . No new consolidation, pleural effusion or pneumothorax. IMPRESSION: COPD
--- NOTE | 2022-01-20 15:15 | CT ---
EXAMINATION TYPE: CT angio head neck DATE OF EXAM: 01/20/2022 HISTORY: Fall in shower today, right facial injury. COMPARISON: Nonenhanced CT brain performed earlier same day Automated Exposure Control for Dose Reduction was Utilized. TECHNIQUE: CTA scan of the neck is performed with IV Contrast, patient injected with 65 mL of Isovue 370, axial images are obtained, coronal and sagittal reformatted images are reviewed. 3D reconstruct ed images are created on an independent workstation and reviewed. FINDINGS: Carotid/Vascular Structures: Scattered arterial atherosclerotic calcification and tortuosity. Hypopla stic A1 segment of the right KENYA. Otherwise normal caliber and enhancement of the neck arteries and i ntracranial arteries without no significant stenosis, occlusion, dissection or aneurysm. Other: No intracranial abnormal enhancement. Thyroid hypodensities, please correlate with thyroid ult rasound results. Degenerative changes of the cervical spine. IMPRESSION: No significant arterial stenosis, occlusion, dissection or other acute abnormality in the major neck or intracranial arteries. Incidental findings as described above.
[2022-01-20] MEDS ORDERED: ASPIRIN 81 MG PO STA (16:30)
--- NOTE | 2022-01-20 17:22 | P.HPIM ---
History of Present Illness Patient is a 89-year-old female with a past medical history significant for atrial fibrillation on anticoagulation with a lupus the presented to the hospital secondary to a mechanical fall based on my encounter with the patient. She denies any chest pain, shortness of breath or palpitations. Denies any episodes of vertigo and dizziness. Patient was taking a shower when she slipped and sustaining a fall landing on the right side. She does have a significant bruise involving the right upper lip/facial region. Computed tomography scan reviewed that showed no acute intracranial hemorrhage or gross acute cortical infarct however small acute or hyperacute infarct Excluded. Neurology was consulted. There is a right high parietal scalp hematoma/swelling. Past Medical History Past Medical History: Atrial Fibrillation, Hyperlipidemia, Hypertension, Thyroid Disorder History of Any Multi-Drug Resistant Organisms: None Reported Past Surgical History: Orthopedic Surgery Past Anesthesia/Blood Transfusion Reactions: No Reported Reaction Past Psychological History: No Psychological Hx Reported Smoking Status: Never smoker Past Alcohol Use History: Occasional Past Drug Use History: None Reported - Past Family History Daughter(s) Family Medical History: Cancer, Thyroid Disorder Medications and Allergies Home Medications Medication Instructions Recorded Confirmed Type Digoxin [Lanoxin] 125 mcg PO DAILY 04/14/16 01/20/22 History Levothyroxine Sodium [Synthroid] 50 mcg PO DAILY 04/14/16 01/20/22 History Metoprolol Tartrate [Lopressor] 50 mg PO BID 04/14/16 01/20/22 History Simvastatin [Zocor] 10 mg PO HS 04/14/16 01/20/22 History Losartan Potassium 25 mg PO HS 05/20/19 01/20/22 History Pramipexole [Mirapex] 0.25 mg PO HS 05/20/19 01/20/22 History Multivitamins, Thera [Multivitamin 1 tab PO DAILY 08/07/19 01/20/22 History (formulary)] Furosemide [Lasix] 20 mg PO DAILY 09/16/21 01/20/22 History Oxybutynin ER [Ditropan Xl] 10 mg PO HS 09/16/21 01/20/22 History Potassium Chloride 10 meq PO BID 09/16/21 01/20/22 History Apixaban [Eliquis] 2.5 mg PO BID 30 Days #60 tab 09/20/21 01/20/22 Rx Allergies Allergy/AdvReac Type Severity Reaction Status Date / Time No Known Allergies Allergy Verified 01/20/22 14:57 Physical Exam Vitals: Vital Signs Temp Pulse Resp BP Pulse Ox 01/20/22 14:05 87 16 148/109 95 01/20/22 13:32 97.3 F L 130 H 18 167/103 99 Intake and Output 01/20/22 01/20/22 01/20/22 06:59 14:59 22:59 Other: Weight 73.936 kg Gen. patient is awake alert oriented 3 Cardiac irregularly irregular, no murmurs appreciated Respiratory no wheezing or rhonchi appreciated, bilaterally air entry Abdomen soft, nontender Neuro cranial nerves II through XII grossly intact there is a very nonspecific facial droop on the right side but I think this is related to the hematoma/bruising she has which makes it difficult to assess. 5-5 muscle strength noted in the upper and lower extremity Normal sensation noted in upper or lower extremity Results CBC & Chem 7: 01/20/22 14:15 01/20/22 14:15 Labs: Abnormal Lab Results - Last 24 Hours (Table) 01/20/22 Range/Units 14:15 BUN 19 H (7-17) mg/dL Assessment and Plan Assessment: Assessment: #1 right facial droop secondary to mechanical fall most likely versus CVA #2 essential hypertension #3 atrial fibrillation on antique regulation #4 hypothyroidism Plan: -Admit to medicine for close monitoring -Aspiration/fall precaution/HOB 30 -Continue follow neuro checks -Neurology consulted -Computed tomography scan of the brain/facial/CT reviewed -PT/OT -DVT prophylaxis resume if okay with neurology
--- NOTE | 2022-01-20 17:58 | ED ---
General Adult HPI - General Chief complaint: Neuro Symptoms/Deficit Stated complaint: Fall/blood thinners/Head injury Time Seen by Provider: 01/20/22 13:54 Source: patient, family Mode of arrival: wheelchair Limitations: no limitations - History of Present Illness Initial comments: This 89-year-old female presents by EMS after she apparently slipped and fell. This occurred when she was apparently getting out of the shower. She hit the back of her head and also her right maxillary region. There is no known loss of consciousness. The patient states that she is unsure how she fell. Family states that she may have slipped on the wet floor. Afterwards, her son relates that she was confused. She was having repetitive questioning as well. She is on eliquis for a blood thinner. She apparently may have had a slight facial droop on the right side per family but this is also where she has an injury. She presents with significant right arm weakness as well. She denies any other injuries. She denies any neck pain, back pain, or hip pain. Family relates that she is usually fairly unsteady on her feet and usually falls about every other month utilizes a walker to ambulate. They deny any history of previous stroke. No other complaints or modifying factors. - Related Data Home Medications Medication Instructions Recorded Confirmed Digoxin [Lanoxin] 125 mcg PO DAILY 04/14/16 01/20/22 Levothyroxine Sodium [Synthroid] 50 mcg PO DAILY 04/14/16 01/20/22 Metoprolol Tartrate [Lopressor] 50 mg PO BID 04/14/16 01/20/22 Simvastatin [Zocor] 10 mg PO HS 04/14/16 01/20/22 Losartan Potassium 25 mg PO HS 05/20/19 01/20/22 Pramipexole [Mirapex] 0.25 mg PO HS 05/20/19 01/20/22 Multivitamins, Thera [Multivitamin 1 tab PO DAILY 08/07/19 01/20/22 (formulary)] Furosemide [Lasix] 20 mg PO DAILY 09/16/21 01/20/22 Oxybutynin ER [Ditropan Xl] 10 mg PO HS 09/16/21 01/20/22 Potassium Chloride 10 meq PO BID 09/16/21 01/20/22 Previous Rx's Medication Instructions Recorded Apixaban [Eliquis] 2.5 mg PO BID 30 Days #60 tab 09/20/21 Allergies Allergy/AdvReac Type Severity Reaction Status Date / Time No Known Allergies Allergy Verified 01/20/22 14:57 Review of Systems ROS Statement: Those systems with pertinent positive or pertinent negative responses have been documented in the HPI. ROS Other: All systems not noted in ROS Statement are negative. Past Medical History Past Medical History: Atrial Fibrillation, Hyperlipidemia, Hypertension, Thyroid Disorder History of Any Multi-Drug Resistant Organisms: None Reported Past Surgical History: Orthopedic Surgery Past Anesthesia/Blood Transfusion Reactions: No Reported Reaction Past Psychological History: No Psychological Hx Reported Smoking Status: Never smoker Past Alcohol Use History: Occasional Past Drug Use History: None Reported - Past Family History Daughter(s) Family Medical History: Cancer, Thyroid Disorder General Exam - General Exam Comments Initial Comments: GENERAL: The patient is well nourished and well hydrated. VITAL SIGNS: Heart rate, blood pressure, respiratory rate reviewed as recorded in nurse's notes. EYES: Pupils are round and reactive. Extraocular movements are intact. No conjunctival / lid redness or swelling. ENT: No external evidence of injury, swelling, or ecchymosis. Airway is patent. Throat is clear. Hematoma noted to the occiput. There is also some swelling and tenderness noted to the right maxillary region. There is mild abrasion noted at the right lateral lip inferiorly. There is no intraoral significant t rauma noted. NECK: Nontender. No swelling or evidence of injury. No subcutaneous emphysema. Trachea is midline. No thyroid mass. Good range of motion. HEART: Regular rate and rhythm. Good peripheral pulses. LUNGS/CHEST: Breath sounds clear and equal bilaterally. No rales, rhonchi, or wheezes. No ecchymosis, subcutaneous emphysema, or tenderness. ABDOMEN: Abdomen soft without tenderness. No palpable masses or organomegaly. No peritoneal signs. No abdominal wall swelling or ecchymosis. EXTREMITIES: No extremity tenderness. Normal muscle tone and function. No thoracolumbar tenderness. NEUROLOGIC: Sensation is grossly intact. The patient does have noted right arm weakness which is significant upon nurse's evaluation directly upon patient's arrival. It is improved upon my evaluation but still present. She then has almost complete resolution on repeat evaluation couple hours later. No other neurologic deficits noted. It is difficult to determine if she has a right facial droop because of the swelling noted in her right lip and facial/maxillary region. SKIN: No abrasions or ecchymosis is noted. No induration or masses noted. PSYCHIATRIC: Alert and pleasant, appropriate behavior. Limitations: no limitations Course Vital Signs 01/20/22 01/20/22 01/20/22 13:32 14:05 15:50 Temperature 97.3 F L Pulse Rate 130 H 87 91 Respiratory 18 16 16 Rate Blood Pressure 167/103 148/109 159/89 O2 Sat by Pulse 99 95 96 Oximetry 01/20/22 17:09 Temperature Pulse Rate 87 Respiratory 16 Rate Blood Pressure 126/89 O2 Sat by Pulse 96 Oximetry Medical Decision Making - Medical Decision Making The patient was seen and examined. All diagnostics were reviewed. The code stroke was initiated. Please see nursing notes for NIH stroke scale. The EKG does show atrial fibrillation with a heart rate of 86. 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 There is some ST-T wave changes noted in the anteroseptal region. There is occasional PVC identified. The QRS duration is 105 and the QTc interval is 401. Previous EKG is also reviewed and does show the similar findings in the lateral leads. The computed tomography scan of the brain is done emergently and this does not show any intracranial bl eeding. Hematomas noted. CT of the cervical spine shows arthritic changes but no acute processes. The computed tomography scan of facial bones does not show any definitive fracture. The patient also had a CTA of the head and neck and this does not show any acute abnormalities. Laboratory is reviewed. This does not show any overt significant abnormalities. Overall it is felt as though patient did suffer decent trauma and is on blood thinners but no significant intracranial or other traumatic injuries are identified. She, however, does have noted weakness to her right upper extremity which has significantly improved. The possibility of a TIA versus CVA is suspected. It is felt as tho ugh she would benefit from admission and additional workup. The case is discussed with Dr. Angulo from interventional neurology. No TPA is indicated due to patient currently being on blood thinners, having a traumatic injury, and her symptomatology improving. The case also was discussed with internal medicine, Dr. Ann and she is agreeable with admission. The patient is in no distress on recheck. She and her son are both agreeable with admission as well. - Lab Data Result diagrams: 01/20/22 14:15 01/20/22 14:15 Lab Results 01/20/22 01/20/22 01/20/22 Range/Units 14:02 14:15 14:15 WBC 9.4 (3.8-10.6) k/uL RBC 5.01 (3.80-5.40) m/uL Hgb 14.8 (11.4-16.0) gm/dL Hct 45.6 (34.0-46.0) % MCV 91.1 (80.0-100.0) fL MCH 29.6 (25.0-35.0) pg MCHC 32.5 (31.0-37.0) g/dL RDW 13.9 (11.5-15.5) % Plt Count 216 (150-450) k/uL MPV 7.3 Neutrophils % 70 % Lymphocytes % 20 % Monocytes % 6 % Eosinophils % 2 % Basophils % 0 % Neutrophils # 6.6 (1.3-7.7) k/uL Lymphocytes # 1.9 (1.0-4.8) k/uL Monocytes # 0.6 (0-1.0) k/uL Eosinophils # 0.1 (0-0.7) k/uL Basophils # 0.0 (0-0.2) k/uL PT 10.0 (9.0-12.0) sec INR 0.9 (<1.2) APTT 24.6 (22.0-30.0) sec Sodium (137-145) mmol/L Potassium (3.5-5.1) mmol/L Chloride (98-107) mmol/L Carbon Dioxide (22-30) mmol/L Anion Gap mmol/L BUN (7-17) mg/dL Creatinine (0.52-1.04) mg/dL Est GFR (CKD-EPI)AfAm (>60 ml/min/1.73 sqM) Est GFR (CKD-EPI)NonAf (>60 ml/min/1.73 sqM) Glucose (74-99) mg/dL POC Glucose (mg/dL) 95 (75-99) mg/dL POC Glu Electric Meter Repairer ID Rodrigue, Talia Calcium (8.4-10.2) mg/dL Total Bilirubin (0.2-1.3) mg/dL AST (14-36) U/L ALT (4-34) U/L Alkaline Phosphatase (38-126) U/L Troponin I (0.000-0.034) ng/mL Total Protein (6.3-8.2) g/dL Albumin (3.5-5.0) g/dL 01/20/22 01/20/22 Range/Units 14:15 14:15 WBC (3.8-10.6) k/uL RBC (3.80-5.40) m/uL Hgb (11.4-16.0) gm/dL Hct (34.0-46.0) % MCV (80.0-100.0) fL MCH (25.0-35.0) pg MCHC (31.0-37.0) g/dL RDW (11.5-15.5) % Plt Count (150-450) k/uL MPV Neutrophils % % Lymphocytes % % Monocytes % % Eosinophils % % Basophils % % Neutrophils # (1.3-7.7) k/uL Lymphocytes # (1.0-4.8) k/uL Monocytes # (0-1.0) k/uL Eosinophils # (0-0.7) k/uL Basophils # (0-0.2) k/uL PT (9.0-12.0) sec INR (<1.2) APTT (22.0-30.0) sec Sodium 141 (137-145) mmol/L Potassium 4.0 (3.5-5.1) mmol/L Chloride 105 (98-107) mmol/L Carbon Dioxide 26 (22-30) mmol/L Anion Gap 10 mmol/L BUN 19 H (7-17) mg/dL Creatinine 0.87 (0.52-1.04) mg/dL Est GFR (CKD-EPI)AfAm 68 (>60 ml/min/1.73 sqM) Est GFR (CKD-EPI)NonAf 59 (>60 ml/min/1.73 sqM) Glucose 91 (74-99) mg/dL POC Glucose (mg/dL) (75-99) mg/dL POC Glu Electric Meter Repairer ID Calcium 9.4 (8.4-10.2) mg/dL Total Bilirubin 0.6 (0.2-1.3) mg/dL AST 26 (14-36) U/L ALT 18 (4-34) U/L Alkaline Phosphatase 74 (38-126) U/L Troponin I <0.012 (0.000-0.034) ng/mL Total Protein 7.7 (6.3-8.2) g/dL Albumin 4.7 (3.5-5.0) g/dL Disposition Clinical Impression: Cerebrovascular accident (CVA), Head injury, Fall from standing, Concussion, Facial contusion, Cervical arthritis, Advanced age Disposition: ADMITTED IP TO THIS HOSP Condition: Fair Is patient prescribed a controlled substance at d/c from ED?: No Time of Disposition: 18:04 Decision Date: 01/20/22 Decision Time: 18:04
[2022-01-20] MEDS ORDERED: ONDANSETRON 4 MG/2 ML VIAL IVP PRN (18:08)
[2022-01-20] MEDS ORDERED: ACETAMINOPHEN TAB 325 MG TAB PO PRN (18:08)
[2022-01-20] MEDS ORDERED: NALOXONE 0.4 MG/ML 1 ML VIAL IV PRN (18:08)
[2022-01-20] MEDS: METOPROLOL TARTRATE 50 MG TAB PO SCH (21:19)
[2022-01-20] MEDS: PRAMIPEXOLE 0.25 MG TAB PO SCH (21:19)
[2022-01-20] MEDS: ATORVASTATIN 10 MG TAB PO SCH (21:19)
[2022-01-20] MEDS: LOSARTAN 25 MG TAB PO SCH (21:19)
[2022-01-21] MEDS: HYDROcodone/APAP 5-325MG 1 EACH TAB PO PRN (06:19)
[2022-01-21] MEDS: APIXABAN 2.5 MG TABLET PO SCH ×3 (06:20→19:39)
[2022-01-21] MEDS: PANTOPRAZOLE 40 MG TABLET PO SCH (06:20)
[2022-01-21] MEDS: METOPROLOL TARTRATE 50 MG TAB PO SCH ×2 (09:11→19:40)
[2022-01-21] MEDS: FUROSEMIDE 40 MG TAB PO SCH (09:11)
[2022-01-21] MEDS: DIGOXIN 125 MCG TAB PO SCH (09:12)
[2022-01-21] MEDS: LEVOTHYROXINE 50 MCG TAB PO SCH (09:12)
[2022-01-21 09:20] LABS: African American GFR (CKD) 73 (>60 ml/min/1.73 sqM); Anion Gap 8 mmol/L; Blood Urea Nitrogen 17 mg/dL (7-17); Calcium 8.7 mg/dL (8.4-10.2); Carbon Dioxide 25 mmol/L (22-30); Chloride 106 mmol/L (98-107); Glucose 144 mg/dL (74-99); Non-African American GFR(CKD) 63 (>60 ml/min/1.73 sqM); Potassium 4.1 mmol/L (3.5-5.1); Sodium 139 mmol/L (137-145)
--- NOTE | 2022-01-21 10:58 | ECHOF ---
Referral Reason:fall MEASUREMENTS -------- HEIGHT: 165.1 cm WEIGHT: 73.9 kg BP: 112/56 RVIDd: 2.9 cm (< 3.3) IVSd: 1.3 cm (0.6 - 1.1) LVIDd: 4.5 cm (3.9 - 5.3) LVPWd: 1.3 cm (0.6 - 1.1) IVSs: 1.9 cm LVIDs: 3.4 cm LVPWs: 1.8 cm LA Diam: 4.2 cm (2.7 - 3.8) LAESV Index (A-L): 47.78 ml/m Ao Diam: 3.3 cm (2.0 - 3.7) AV Cusp: 1.6 cm (1.5 - 2.6) MV EXCURSION: 14.924 mm (> 18.000) MV EF SLOPE: 126 mm/s (70 - 150) EPSS: 0.9 cm RAP: 5.00 mmHg RVSP: 29.84 mmHg FINDINGS -------- The rhythm appears to be atrial flutter. This was a technically adequate study. The left ventricular size is normal. There is mild concentric left ventricular hypertrophy. Overa ll left ventricular systolic function is mildly impaired with, an EF between 45 - 50 %. The right ventricle is normal in size. LA is severely dilated >40 ml/m2 The right atrium is normal in size. Interatrial and interventricular septum intact. There is mild aortic valve sclerosis. The mitral valve leaflets are mildly thickened. Mild mitral annular calcification present. Mild m itral regurgitation is present. Mild tricuspid regurgitation present. Right ventricular systolic pressure is normal at < 35 mmHg. The pulmonic valve is normal. The aortic root size is normal. Normal inferior vena cava with normal inspiratory collapse consistent with estimated right atrial pre ssure of 5 mmHg. There is no pericardial effusion. CONCLUSIONS -------- 1. The left ventricular size is normal. 2. There is mild concentric left ventricular hypertrophy. 3. Overall left ventricular systolic function is mildly impaired with, an EF between 45 - 50 %. 4. LA is severely dilated >40 ml/m2 5. There is mild aortic valve sclerosis. 6. The mitral valve leaflets are mildly thickened. 7. Mild mitral annular calcification present. 8. Mild mitral regurgitation is present. 9. Mild tricuspid regurgitation present. 10. There is no pericardial effusion. WAITSTAFF CAPTAIN: Trina Mantilla RDCS
[2022-01-21 14:33] LABS: Chol/HDL Ratio 3.62 Ratio; LDL Cholesterol,Calculated 63.6 mg/dL (0.0-131.0)
--- NOTE | 2022-01-21 15:49 | P.PN ---
Subjective Patient was evaluated bedside today not complaining of any new symptomatology. The bruise on her right facial area specifically around the lips is slowly improving. Denies any other focal deficits. Family present at bedside all questions were answered. Objective - Vital Signs Vital signs: Vital Signs Temp 98 F 01/21/22 11:34 Pulse 67 01/21/22 11:34 Resp 24 01/21/22 11:34 BP 111/61 01/21/22 11:34 Pulse Ox 95 01/21/22 11:34 Intake & Output 01/20/22 01/21/22 01/21/22 18:59 06:59 18:59 Intake Total 360 Balance 360 Weight 73.936 kg 73.936 kg Intake: Oral 360 Other: Voiding Method Toilet Toilet # Voids 1 1 - Exam Gen. patient is awake alert oriented 3 Cardiac irregularly irregular, no murmurs appreciated Respiratory no wheezing or rhonchi appreciated, bilaterally air entry Abdomen soft, nontender Neuro cranial nerves II through XII grossly intact there is a very nonspecific facial droop on the right side but I think this is related to the hematoma/bruising she has which makes it difficult to assess. Slightly improving 5-5 muscle strength noted in the upper and lower extremity Normal sensation noted in upper or lower extremity - Labs CBC & Chem 7: 01/20/22 14:15 01/21/22 08:22 Labs: Abnormal Lab Results - Last 24 Hours (Table) 01/21/22 Range/Units 08:22 Glucose 144 H (74-99) mg/dL Triglycerides 225.00 H (0.00-149.00) mg/dL VLDL Cholesterol, Calc 45.00 H (5.00-40.00) mg/dL Assessment and Plan Assessment: Assessment: #1 right facial droop secondary to mechanical fall most likely versus CVA #2 essential hypertension #3 atrial fibrillation on antique regulation #4 hypothyroidism #5 prediabetes hemoglobin A1c 6.0 Plan: -Admit to medicine for close monitoring -Aspiration/fall precaution/HOB 30 -Neurology consulted pending evaluation -Computed tomography scan of the brain/facial/CT reviewed -2-D echocardiogram reviewed -Risk stratification completed hemoglobin A1c 6.0 prediabetes, lipid panel reviewed -PT/OT -DVT prophylaxis zeke
--- NOTE | 2022-01-21 17:11 | P.CNNES ---
History of Present Illness Consult date: 01/21/22 Requesting physician: Julio Cesar Gerardo Reason for Consult: CVA?/Fall hematoma noted. History of Present Illness: Patient is a 89-year-old female came to the hospital yesterday at 1:17 PM after she suffered from a fall. Patient's son was present today, who also provided with a history. Patient states that "I just went down and fell". She does not remember details of the fall. According to patient's son, patient was taking shower, which she does by herself, although does require help getting in and out of the bathroom. When she came out of the tub, she still had wet feet and as soon as her foot hit the linoleum, she slipped, fell into the washer and dryer. Patient's daughter was outside the bathroom, and heard a loud thud. When she went in, saw patient awake, and blood was dripping out of her mouth. She was fully alert and awake, did not lose consciousness. Patient was brought to the hospital. Patient at present denies any headache any problem with the vision. She does have some memory issues at baseline, which is not any worse. Denies any focal symptoms. Vital signs on arrival blood pressure 167/103, pulse rate 130, temperature 97.3. CT head showed no acute intracranial hemorrhage or gross acute cortical infarct, however a small acute or hyperacute infarct cannot be excluded. Brain volume l oss changes and chronic ischemic changes. Right high parietal scalp hematoma/swelling. I personally reviewed computed tomography scan of the head and agree with the findings. Facial CT shows right facial soft tissue swelling. No fracture. CT of the cervical spine showed no acute traumatic bony injury of the cervical spine. At worst degenerative changes of the cervical spine and other incidental findings. CTA of head and neck showed no significant arterial stenosis, occlusion, dissection or other acute abnormality in the major neck or intracranial arteries. Chest x-ray showed COPD. Patient's home medications include digoxin 125 g daily, metoprolol 50 minutes twice a day, as simvastatin 10 mg, levothyroxine, Mirapex 0.25 mg at bedtime, losartan, multivitamin, Lasix, oxybutynin, potassium and Eliquis 2.5 mg twice a day. Review of Systems Patient states that she does have some word finding problem at time, which is not new, going on for a long time. Patient's son states that there is no diagnosis of dementia. Sometimes her son has to finish her sentence while she is speaking as she forgets. Sometimes she gets little confused and may ask the same thing again. Denies any slurred speech, any visual problem, headache. No numbness tingling. All other 14 point review systems reviewed unremarkable. She does have arthritis. Past Medical History Past Medical History: Atrial Fibrillation, Hyperlipidemia, Hypertension, Thyroid Disorder History of Any Multi-Drug Resistant Organisms: None Reported Past Surgical History: Orthopedic Surgery Past Anesthesia/Blood Transfusion Reactions: No Reported Reaction Past Psychological History: No Psychological Hx Reported Smoking Status: Never smoker Past Alcohol Use History: Occasional Past Drug Use History: None Reported - Past Family History Daughter(s) Family Medical History: Cancer, Thyroid Disorder Medications and Allergies Home Medications Medication Instructions Recorded Confirmed Type Digoxin [Lanoxin] 125 mcg PO DAILY 04/14/16 01/20/22 History Levothyroxine Sodium [Synthroid] 50 mcg PO DAILY 04/14/16 01/20/22 History Metoprolol Tartrate [Lopressor] 50 mg PO BID 04/14/16 01/20/22 History Simvastatin [Zocor] 10 mg PO HS 04/14/16 01/20/22 History Losartan Potassium 25 mg PO HS 05/20/19 01/20/22 History Pramipexole [Mirapex] 0.25 mg PO HS 05/20/19 01/20/22 History Multivitamins, Thera [Multivitamin 1 tab PO DAILY 08/07/19 01/20/22 History (formulary)] Furosemide [Lasix] 20 mg PO DAILY 09/16/21 01/20/22 History Oxybutynin ER [Ditropan Xl] 10 mg PO HS 09/16/21 01/20/22 History Potassium Chloride 10 meq PO BID 09/16/21 01/20/22 History Apixaban [Eliquis] 2.5 mg PO BID 30 Days #60 tab 09/20/21 01/20/22 Rx Allergies Allergy/AdvReac Type Severity Reaction Status Date / Time No Known Allergies Allergy Verified 01/20/22 14:57 Physical Examination - Vital Signs Vital Signs: Vital Signs Temp Pulse Pulse Resp BP BP Pulse Ox 01/21/22 08:45 67 24 01/21/22 07:34 98.4 F 72 24 111/73 92 L 01/21/22 02:47 97.6 F 93 18 112/56 93 L 01/21/22 01:24 93 18 01/21/22 00:00 97.7 F 77 17 128/76 96 01/20/22 20:00 97.7 F 78 18 134/80 95 01/20/22 17:09 87 16 126/89 96 01/20/22 15:50 91 16 159/89 96 01/20/22 14:05 87 16 148/109 95 01/20/22 13:32 97.3 F L 130 H 18 167/103 99 Intake and Output 01/20/22 01/21/22 01/21/22 22:59 06:59 14:59 Intake Total 360 Balance 360 Intake: Oral 360 Other: Voiding Method Toilet Toilet Toilet # Voids 1 1 Weight 73.936 kg Patient is an elderly female, in no acute distress. Patient is alert awake oriented to time place and person. Patient knows it is December and the year is . She knows that she is in [facility] and name of the current president. Speech and language functions are normal. Attention, concentration and fund of knowledge is adequate for her age. Detail testing deferred. On cranial examination, pupils are equal, round and reacting to light, visual mccracken are full on confrontation, no neglect. Her extraocular muscles are intact with no nystagmus. Patient has mild right lower facial asymmetry, but appears possibly due to right facial swelling from subcutaneous hematoma. Her tongue protrudes to the midline. Palatal elevation and sensation normal, hearing is normal for routine conversation, slightly decreased for finger rubbing. Her shoulder shrug normal, facial sensation normal. On muscle strength testing, there is no pronator drift and the strength is normal in arms and legs distally and proximally, except deltoids, which are weak about 4+ bilaterally. Deep tendon reflexes are symmetric, 2 in the upper limbs at biceps and brachioradialis, 1 at the knees and ankles and plantars are withdrawal bilaterally. Sensory to touch is equal with no neglect. Cerebellar function showed no ataxia for [id number] testing. No dysdiadochokinesia. Tone and bulk of muscles normal. Gait deferred. On general examination, there is no carotid bruit or murmur, S1-S2 audible. Abdomen is soft nontender. No organomegaly. Bowel sounds present. Chest is c lear to auscultation. Peripheral pulses are present. No edema. Results - Laboratory Findings CBC and BMP: 01/20/22 14:15 01/21/22 08:22 Abnormal Lab Findings: Abnormal Labs 01/20/22 01/21/22 14:15 08:22 BUN 19 H Glucose 144 H Assessment and Plan Assessment: * Status post fall due to slipping after taking the shower. * Right facial droop, probably due to mechanical fall, right facial swelling. CVA less likely. * Hypertension * Bilateral shoulder weakness, probable arthritic. * Cervical spondylosis * Atrial fibrillation on Eliquis * Hypothyroidism * Prediabetes. Plan: * CTA of head and neck showed no significant arterial stenosis, occlusion, dissection or other acute abnormality in the major neck or intracranial a rteries. * 2-D echo revealed normal left ventricular size. Mild concentric LVH. Overall left ventricular systolic function is mildly impaired with EF between 45-50. Left atrium is severely dilated. Mild aortic valve sclerosis. Mitral valve leaflets are mildly thickened. * Patient's right facial weakness is likely due to facial swelling from the bruise related to the fall. CVA appears less likely. * Continue Eliquis 2.5 mg twice a day * Lipid panel with cholesterol 150, LDL 63, HDL 41 and triglycerides 225. Continue Lipitor 10 mg daily. * Hemoglobin A1c 6.0. * Neurologically clear, if cleared by PT and OT.
[2022-01-21] MEDS: PRAMIPEXOLE 0.25 MG TAB PO SCH (19:39)
[2022-01-21] MEDS: ATORVASTATIN 10 MG TAB PO SCH (19:40)
[2022-01-21] MEDS: LOSARTAN 25 MG TAB PO SCH (19:40)
[2022-01-22] MEDS: PANTOPRAZOLE 40 MG TABLET PO SCH (06:37)
[2022-01-22] MEDS: APIXABAN 2.5 MG TABLET PO SCH ×2 (08:09→19:47)
[2022-01-22] MEDS: FUROSEMIDE 40 MG TAB PO SCH (08:09)
[2022-01-22] MEDS: DIGOXIN 125 MCG TAB PO SCH (08:09)
[2022-01-22] MEDS: METOPROLOL TARTRATE 50 MG TAB PO SCH ×2 (08:11→19:47)
[2022-01-22] MEDS: LEVOTHYROXINE 50 MCG TAB PO SCH (08:11)
[2022-01-22 08:56] LABS: Basophils # (A) 0.1 k/uL (0-0.2); Basophils % (A) 1 %; Eosinophils # (A) 0.3 k/uL (0-0.7); Eosinophils % (A) 4 %; HCT 44.4 % (34.0-46.0); HGB 14.2 gm/dL (11.4-16.0); Lymphocytes % (A) 27 %; MCH 29.6 pg (25.0-35.0); MCV 92.5 fL (80.0-100.0); Mean Platelet Volume 7.5; Monocytes # (A) 0.5 k/uL (0-1.0); Monocytes % (A) 6 %; Neutrophils # (A) 4.5 k/uL (1.3-7.7); Neutrophils % (A) 61 %; Platelet Count 206 k/uL (150-450); WBC 7.5 k/uL (3.8-10.6)
[2022-01-22 09:14] LABS: Potassium 4.1 mmol/L (3.5-5.1)
--- NOTE | 2022-01-22 11:36 | P.DS ---
Providers Date of admission: 01/20/22 18:09 Attending physician: Frances Salazar DO Consults: 01/20/22 17:08 Consult Physician Routine Consulting Provider: Brayan López Consult Reason/Comments: CVA?/ fall hematoma noted. Do you want consulting provider notified?: Yes Primary care physician: Lio Mariano MD Hospital Course: Patient is a 89-year-old female with a past medical history significant for atrial fibrillation on anticoagulation with a lupus the presented to the hospital secondary to a mechanical fall based on my encounter with the patient. She denies any chest pain, shortness of breath or palpitations. Denies any episodes of vertigo and dizziness. Patient was taking a shower when she slipped and sustaining a fall landing on the right side. She does have a significant bruise involving the right upper lip/facial region. Computed tomography scan reviewed that showed no acute intracranial hemorrhage or gross acute cortical infarct however small acute or hyperacute infarct Excluded. Neurology was consulted. Patient was evaluated by neurology imaging was reviewed, lipid panel, 2-D echocardiogram reviewed. Patient is okay to be discharged from their perspective. Patient did require PTOT evaluation given her symptoms however is refusing to be discharge to subacute rehab. She has been made aware of the risks versus benefit. She does live with her son will be providing help to her. This was also communicated by case management. At this time the patient is okay be discharge and is asked to follow-up with neurology and PCP within 1 week of discharge. Patient has been educated regarding medication compliance and she is agreeable. Patient also needs to follow with cardiology she said that she will make an appointment this week. Patient Condition at Discharge: Fair Plan - Discharge Summary New Discharge Prescriptions: Continue Digoxin [Lanoxin] 125 mcg PO DAILY Metoprolol Tartrate [Lopressor] 50 mg PO BID Simvastatin [Zocor] 10 mg PO HS Levothyroxine Sodium [Synthroid] 50 mcg PO DAILY Pramipexole [Mirapex] 0.25 mg PO HS Losartan Potassium 25 mg PO HS Multivitamins, Thera [Multivitamin (formulary)] 1 tab PO DAILY Furosemide [Lasix] 20 mg PO DAILY Oxybutynin ER [Ditropan Xl] 10 mg PO HS Apixaban [Eliquis] 2.5 mg PO BID 30 Days #60 tab Discontinued Potassium Chloride 10 meq PO BID Discharge Medication List Digoxin [Lanoxin] 125 mcg PO DAILY 04/14/16 [History] Levothyroxine Sodium [Synthroid] 50 mcg PO DAILY 04/14/16 [History] Metoprolol Tartrate [Lopressor] 50 mg PO BID 04/14/16 [History] Simvastatin [Zocor] 10 mg PO HS 04/14/16 [History] Losartan Potassium 25 mg PO HS 05/20/19 [History] Pramipexole [Mirapex] 0.25 mg PO HS 05/20/19 [History] Multivitamins, Thera [Multivitamin (formulary)] 1 tab PO DAILY 08/07/19 [History] Furosemide [Lasix] 20 mg PO DAILY 09/16/21 [History] Oxybutynin ER [Ditropan Xl] 10 mg PO HS 09/16/21 [History] Apixaban [Eliquis] 2.5 mg PO BID 30 Days #60 tab 09/20/21 [Rx] Follow up Appointment(s)/Referral(s): Brayan López MD [STAFF PHYSICIAN] - 1 Week Lio Lopez MD [STAFF PHYSICIAN] - 1 Week Discharge Disposition: HOME WITH HOME HEALTH SERVICES
--- NOTE | 2022-01-22 12:28 | P.PN ---
Subjective Progress Note Date: 01/22/22 Patient was seen on follow-up. Patient's son was also present today. She continues to have right facial droop, although the swelling has much improved. Patient is also using her left arm instead of right arm to feed. She is manually lifting her right arm using her left hand. Her both shoulders appears very weak. There is no pain. Denies any neck pain. Objective - Vital Signs Vital signs: Vital Signs Temp 97.6 F 01/22/22 11:48 Pulse 68 01/22/22 11:48 Resp 24 01/22/22 11:48 BP 114/54 01/22/22 11:48 Pulse Ox 97 01/22/22 11:48 Intake & Output 01/21/22 01/22/22 01/22/22 18:59 06:59 18:59 Intake Total 480 180 Balance 480 180 Intake: Oral 480 180 Other: Voiding Method Toilet Toilet Toilet # Voids 1 1 - Exam Patient's mental status, speech and language functions are normal. Cranial nerves are significant for right facial droop, central type. Tongue protrudes in midline. Muscle strength, patient has bilateral shoulder weakness about 3+ to 3- bilaterally. Biceps, triceps and budget manager is normal. Hip flexion is 4+ bilaterally. Ankles are normal. Sensations are equal. No obvious ataxia. - Labs CBC & Chem 7: 01/22/22 07:21 01/22/22 07:21 Labs: Abnormal Lab Results - Last 24 Hours (Table) 01/21/22 01/22/22 Range/Units 08:22 07:21 Glucose 101 H (74-99) mg/dL Triglycerides 225.00 H (0.00-149.00) mg/dL VLDL Cholesterol, Calc 45.00 H (5.00-40.00) mg/dL Assessment and Plan Assessment: * Status post fall due to slipping after taking the shower. * Right facial droop, probably due to mechanical fall, right facial swelling. Rule out CVA because of persistent facial droop, and right shoulder arm weakness. * Hypertension * Bilateral shoulder weakness, probable arthritic. * Cervical spondylosis. Patient has bilateral shoulder weakness, gait imbalance, rule out spinal stenosis. * Atrial fibrillation on Eliquis * Hypothyroidism * Prediabetes. Plan: * MRI of brain rule out CVA and cervical spine evaluate for spinal stenosis. * CTA of head and neck showed no significant arterial stenosis, occlusion, dissection or other acute abnormality in the major neck or intracranial arteries. * 2-D echo revealed normal left ventricular size. Mild concentric LVH. Overall left ventricular systolic function is mildly impaired with EF between 45-50. Left atrium is severely dilated. Mild aortic valve sclerosis. Mitral valve leaflets are mildly thickened. * Continue Eliquis 2.5 mg twice a day * Lipid panel with cholesterol 150, LDL 63, HDL 41 and triglycerides 225. Continue Lipitor 10 mg daily. * Hemoglobin A1c 6.0. * PT and OT recommended subacute rehab, but patient declined and wants to go home. * Discussed with primary physician.
--- NOTE | 2022-01-22 15:35 | P.CON ---
Consult Note - . Assessment/Plan:: Discharge currently held case discussed with neurology. MRI ordered pending results and to be cleared by neurology before discharge. Communicative instructions to back shoe worker currently held.
[2022-01-22] MEDS: LOSARTAN 25 MG TAB PO SCH (19:47)
[2022-01-22] MEDS: ATORVASTATIN 10 MG TAB PO SCH (19:47)
[2022-01-22] MEDS: PRAMIPEXOLE 0.25 MG TAB PO SCH (19:47)
[2022-01-23] MEDS: PANTOPRAZOLE 40 MG TABLET PO SCH (06:11)
[2022-01-23] MEDS: LEVOTHYROXINE 50 MCG TAB PO SCH (08:01)
[2022-01-23] MEDS: APIXABAN 2.5 MG TABLET PO SCH ×2 (08:01→19:45)
[2022-01-23] MEDS: DIGOXIN 125 MCG TAB PO SCH (08:01)
[2022-01-23] MEDS: FUROSEMIDE 40 MG TAB PO SCH (08:01)
[2022-01-23] MEDS: METOPROLOL TARTRATE 50 MG TAB PO SCH ×2 (08:01→19:45)
--- NOTE | 2022-01-23 12:43 | CDI ---
Documentation Clarification Form Date: 01/23/2022 12:30:56 PM From: Marlyn Guzman CCS, CCDS Admit Date: 01/20/2022 06:09:00 PM Patient Name: Mami Ricardo Visit Number: [id number] Discharge Date: ATTENTION: The Clinical Documentation Specialists (CDI) and [facility] Coding Staff appreciate your assistance in clarifying documentation. Please respond to the clarification below the line at the bottom and electronically sign. The CDI & [facility] Coding staff will review the response and follow-up if needed. Please note: Queries are made part of the Legal Health Record. If you have any questions, please contact the author of this message via ITS. Dr. Julio Cesar Gerardo or Dr. Frances Salazar: Atrial Fibrillation is documented in the 01/20 ED Note per the EKG with Heart Rate 86. Atrial Fibrillation is also documented in the 01/20 History & Physical: Atrial Fibrillation on anticoagulation. Additional clarification regarding the type of Atrial Fibrillation is requested. History/Risk Factors per the 01/20 H/P: Atrial Fibrillation on Eliquis, Hypertension, Hyperlipidemia, Thyroid Disorder. Home meds: Eliquis, Lopressor, Zocor, Losartan K, Ditropan, KCL Clinical Indicators: Presented to the ED on 01/20 with family after slipping and falling while getting out of the shower, hit the back of her head & right maxillary region, no known LOC, patient is unclear how she fell, may have slipped on the wet floor, per the patient's son she was confused having repetitive questioning, on blood thinner. Has slight facial droop on the right side and right arm weakness. Admit with CVA, Head injury, Fall from standing, Concussion, Facial contusion, Cervical arthritis, Advanced age. 01/20 VS: T 97.3, P 130, 87, 91, 87, 106 (irregular; 78. 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 Treatment 01/20: Blood glucose monitoring, Fall precautions, Neuro assessment, Rigid cervical color, O2 2Lnc, po Aspirin 324 mg x1, po [place] 5-325 1 ea q4H/prn, home meds including Cozaar, Lopressor and Eliquis. Consults: Neurology. Cardiology was not consulted. Please clarify the type of atrial fibrillation, if known: [ ] Chronic [ ] Paroxysmal [ ] Persistent [ ] Other, please specify [ ] Unable to determine (Template Last Revised: March 2021) [ X] Permanent MTDD
--- NOTE | 2022-01-23 13:34 | P.CNOR ---
History of Present Illness - [facility] Consult date: 01/23/22 Consult reason: joint pain (Right shoulder) History of present illness: Patient is an 89-year-old female who presented to [facility] on 01/20/2022 after sustaining a fall at home. On arrival to the hospital, multiple labs and imaging test were done due to concern for possible CVA. No acute intracranial process was noted after initial assessment. Patient was admitted to [facility] for further testing and observation. During the hospital stay, patient has complained about some right shoulder pain and weakness. She is also having some discomfort in the right hip and right knee region. Our orthopedic team was consulted with regards to this. Patient was evaluated today at bedside, showed multiple family members present. Most of the patient's orthopedic history was reviewed with the family at bedside. She does have a history of a total hip arthroplasty on the right side that was done in the early 1999. Patient notes most of discomfort in the posterior aspect of shoulder. It seems to have improved since earlier today. There is a large bruise present on the lateral aspect of the lower thigh and upper aspect of the knee. There is some generalized swelling surrounding the knee also. Patient does live at home with one of her sons. She normally utilizes a walker with ambulation. She does have a history of frequent falls. Review of Systems Constitutional: Reports as per HPI Past Medical History Past Medical History: Atrial Fibrillation, Hyperlipidemia, Hypertension, Thyroid Disorder History of Any Multi-Drug Resistant Organisms: None Reported Past Surgical History: Orthopedic Surgery Past Anesthesia/Blood Transfusion Reactions: No Reported Reaction Past Psychological History: No Psychological Hx Reported Smoking Status: Never smoker Past Alcohol Use History: Occasional Past Drug Use History: None Reported - Past Family History Daughter(s) Family Medical History: Cancer, Thyroid Disorder Medications and Allergies Home Medications Medication Instructions Recorded Confirmed Type Digoxin [Lanoxin] 125 mcg PO DAILY 04/14/16 01/20/22 History Levothyroxine Sodium [Synthroid] 50 mcg PO DAILY 04/14/16 01/20/22 History Metoprolol Tartrate [Lopressor] 50 mg PO BID 04/14/16 01/20/22 History Simvastatin [Zocor] 10 mg PO HS 04/14/16 01/20/22 History Losartan Potassium 25 mg PO HS 05/20/19 01/20/22 History Pramipexole [Mirapex] 0.25 mg PO HS 05/20/19 01/20/22 History Multivitamins, Thera [Multivitamin 1 tab PO DAILY 08/07/19 01/20/22 History (formulary)] Furosemide [Lasix] 20 mg PO DAILY 09/16/21 01/20/22 History Oxybutynin ER [Ditropan Xl] 10 mg PO HS 09/16/21 01/20/22 History Apixaban [Eliquis] 2.5 mg PO BID 30 Days #60 tab 09/20/21 01/20/22 Rx Allergies Allergy/AdvReac Type Severity Reaction Status Date / Time No Known Allergies Allergy Verified 01/20/22 14:57 Physical Examination Right upper extremity: No open lesions or sores are visualized throughout the extremity No acute areas of erythema, mild soft tissue swelling over the glenohumeral joint line No tenderness appreciated with palpation to the clavicle, acromion, anterior glenohumeral joint line. She is nontender of the proximal humerus, lower arm, elbow, forearm, hand or wrist Passive and active motion are intact with regards to the right shoulder, elbow, hand and wrist. No focal deficits appreciated Sensation to light touch sensory extremity is intact. Radial and ulnar pulses are 2+ Right knee: Mild soft tissue swelling present around the knee, varus deformity of the knee is appreciated. Obvious ecchymosis present on the lateral aspect of the upper knee and lower thigh Mild effusion present on the knee No significant tenderness with palpation to the medial and lateral joint line or patella Passive and active motion are intact with regards to extension and flexion, she stable varus and valgus stress Soft, no tenderness with palpation Right hip: Well-healed incision over the posterior/lateral aspect of the hip, there are no obvious skin changes including open lesions or erythema No significant tenderness with palpation to the proximal aspect of the femur or lower aspect Logroll maneuver reproduces no pain, hip flexion along with internal and external rotation reproduce some groin pain or pain throughout the extremity Sensation to light touch throughout the radial extremities intact, dorsalis pedis pulses 2+ Results - Labs Labs: H & H 01/20/22 01/22/22 Range/Units 14:15 07:21 Hgb 14.8 14.2 (11.4-16.0) gm/dL Hct 45.6 44.4 (34.0-46.0) % Coagulation 01/20/22 Range/Units 14:15 INR 0.9 (<1.2) Result Diagrams: 01/22/22 07:21 01/22/22 07:21 Assessment and Plan Assessment: Right shoulder pain Right knee pain Right hip pain, history of right total hip arthroplasty Recent fall Multiple medical comorbidities Plan: Imaging: Patient is scheduled for an MRI later today, x-rays have been ordered for the shoulder, knee and hip. We will review the images and reports once completed Plan: I was able to discuss the case, including physical exam findings by attending Dr. Terrell. We will await x-ray images for further clarification Physical exam does not reveal any acute signs of fracture to the involved extremities. Would recommend use of [id number] Tylenol along with icing and elevating to help with symptomatically for the affected extremity Further recommendations to follow pending x-ray results Time with Patient: Less than 30
--- NOTE | 2022-01-23 15:50 | XR ---
EXAMINATION TYPE: XR shoulder complete RT DATE OF EXAM: 01/23/2022 COMPARISON: None HISTORY: Pain from fall TECHNIQUE: 3 view right shoulder FINDINGS: Advanced rotator cuff tears present. There is loss of joint space loss of the acromiohumera l joint space. Erosion along these borders. No acute fractures evident. Hypertrophy of the acromioclavicular junction is present. IMPRESSION: 1. Advanced osteoarthritic degenerative change and chronic rotator cuff tear.
--- NOTE | 2022-01-23 15:51 | XR ---
EXAMINATION TYPE: XR Hip Limited RT DATE OF EXAM: 01/23/2022 COMPARISON: None HISTORY: Fall, pain TECHNIQUE: 2 view right hip FINDINGS: There is a right femoral prosthesis with acetabular component. No acute fracture or disloca tion is evident. Component articulates with the acetabular component. Follow up exams can be performed 7-10 days from acute trauma for continued pain IMPRESSION: 1. No acute fracture with the right hip prosthesis in place.
--- NOTE | 2022-01-23 15:54 | XR ---
EXAMINATION TYPE: XR knee complete RT DATE OF EXAM: 01/23/2022 COMPARISON: None HISTORY: Fall, pain TECHNIQUE: 3 view right knee FINDINGS: There is narrowing of the medial lateral compartment joint spaces. Medial and lateral tibia l plateau sprain and medial femoral condylar spurring is present. Small lateral femoral condyle spur is also present. Patellofemoral joint space is narrowed. Posterior patellar spurring is present. No j oint effusion is evident. Follow up exams can be performed 7-10 days from acute trauma for continued pain. IMPRESSION: 1. Moderate osteoarthritic degenerative change right knee
--- NOTE | 2022-01-23 16:13 | MR ---
EXAMINATION TYPE: MR brain wo con DATE OF EXAM: 01/23/2022 COMPARISON: MRI brain May 21, 2019. CT brain January 20 HISTORY: Right facial droop, rt arm weakness, ?CVA. TECHNIQUE: Multiplanar, multisequence imaging of the brain and brainstem is performed without IV cont rast. FINDINGS: Diffusion weighted images demonstrate no evidence of a recent infarct or other diffusion abnormality. There is mild to moderate ventricular and sulcal prominence. There are moderate to severe focal and c onfluent areas of T2 hyperintensity seen throughout the white matter greatest at the periventricular levels redemonstrated. T2 Star weighted images show no suspicious intraparenchymal blood product. Midline structures demonstrate normal morphology. The craniocervical junction appears within normal limits. Normal vascular flow voids are present. Absent right A1 segment with filling of the A2 segmen t due to patent anterior communicating artery, normal variant is redemonstrated. The visualized sinus es are clear and the globes are intact. IMPRESSION: No MRI evidence for a recent infarct. Moderate diffuse cerebral atrophy and moderate to a dvanced chronic small vessel ischemic changes redemonstrated. No significant change from prior studie s.
[2022-01-23] MEDS: LOSARTAN 25 MG TAB PO SCH (19:45)
[2022-01-23] MEDS: ATORVASTATIN 10 MG TAB PO SCH (19:45)
[2022-01-23] MEDS: PRAMIPEXOLE 0.25 MG TAB PO SCH (19:45)
[2022-01-23] MEDS: HYDROcodone/APAP 5-325MG 1 EACH TAB PO PRN (19:45)
--- NOTE | 2022-01-23 20:09 | P.PN ---
Subjective Progress Note Date: 01/23/22 (delayed charting seen at 0945) Principal diagnosis: fall Patient is an 89-year-old female with known atrial fibrillation anticoagulated with eliquis, hypothyroidism, and hypertension who presented to the hospital after a fall. In the ER she underwent an extensive evaluation. Initial radiologic evaluation was negative. She was admitted for concern for CVA versus mechanical fall with right facial droop. Neurology was consulted and agreed that most likely her right facial droop was due to right facial swelling. They did recommend continuing workup for possible CVA. Imaging: MRI brain: No recent infarct X-ray RIght knee: Moderate osteoarthritic changes to the right knee X-ray Right hip: No acute fracture with right hip hemiprosthesis in place. Right shoulder x-ray: Chronic osteoarthritic degenerative changes with chronic rotator cuff tear Echocardiogram: Ejection fraction 45-50%, mild concentric LVH Chest x-ray: COPD CT angiogram head and neck: No significant arterial stenosis, occlusion, dissection, or other acute abnormality CT cervical spine, no acute bony fracture advanced degenerative changes CT facial bones: Right facial soft tissue swelling without acute facial bone fracture CT brain: No acute intracranial abnormality, brain loss with chronic ischemic changes, right parietal scalp hematoma with swelling General: non toxic, no distress, appears at stated age Derm: warm, dry Head: Bruising right jaw and face, swelling over right jaw. Oral area. Eyes: EOMI, no lid lag, anicteric sclera Mouth: no lip lesion, mucus membranes moist Cardiovascular: S1S2 reg, no murmur, positive posterior tibial pulse bilateral, Lungs: CTA bilateral, no rhonchi, no rales , no accessory muscle use Abdominal: soft, nontender to palpation, no guarding, no appreciable organomegaly Ext: no gross muscle atrophy, no edema, no contractures Neuro: CN II-XI grossly intact, no focal neuro deficits Musculoskeletal exam Positive empty can test on the right, patient has to lift right arm with left arm but then can hold it up afterwards, pain to internal rotation. Right knee evaluation: No ligamentous laxity noted on varus and valgus maneuvers, negative anterior and posterior drawer, no pain to palpation of medial and lateral joint line hip: Limited evaluation as patient is sitting in the chair but no pain to palpation. Psych: Alert, oriented, appropriate affect Assessment/plan: Mechanical fall Right facial droop likely secondary to facial swelling Cervical spondylosis with degenerative changes on the left -Awaiting MRI of the time of evaluating the patient which has come back negative -Neurology recommendations -Continue with eliquis -Continue with statin Right shoulder weakness -Suspect rotator cuff injury doubt fracture -Check x-ray which appears to be negative for signs of fracture Hip and knee pain with significant bruising -X-ray is ordered despite negative physical evaluation at daughter's request -Orthoses consulted Harish moon Hypertension -Continue with anticoagulation Prediabetes -Continue with outpatient follow-up and repeat A1c in 3 months Hypothyroidims - Synthroid Anticipate discharge in AM to or SNF. Objective - Vital Signs Vital signs: Vital Signs Temp 98.0 F 01/23/22 17:40 Pulse 65 01/23/22 17:40 Resp 18 01/23/22 17:40 BP 123/63 01/23/22 17:40 Pulse Ox 94 L 01/23/22 17:40 Intake & Output 01/23/22 01/23/22 01/24/22 06:59 18:59 06:59 Intake Total 240 240 Output Total 400 Balance 240 -160 Intake: Oral 240 240 Output: Urine 400 Other: Voiding Method Toilet Toilet # Voids 2 2 - Labs CBC & Chem 7: 01/22/22 07:21 01/22/22 07:21
[2022-01-24 00:52] VITALS: RESP 20
[2022-01-24] MEDS: PANTOPRAZOLE 40 MG TABLET PO SCH (06:26)
[2022-01-24] MEDS: FUROSEMIDE 40 MG TAB PO SCH (10:15)
[2022-01-24] MEDS: LEVOTHYROXINE 50 MCG TAB PO SCH (10:15)
[2022-01-24] MEDS: DIGOXIN 125 MCG TAB PO SCH (10:15)
[2022-01-24] MEDS: APIXABAN 2.5 MG TABLET PO SCH (10:15)
[2022-01-24] MEDS: METOPROLOL TARTRATE 50 MG TAB PO SCH (10:15)
[2022-01-24 10:27] VITALS: BP 100/59; PULSE 95; TEMP 97.4
--- NOTE | 2022-01-24 10:44 | P.PN ---
Progress Note - Text Progress Note Date: 01/24/22 Right shoulder pain; right hip pain; right knee pain Subjective: Patient seen at bedside this morning resting comfortably sitting up in chair. Patient says she did have breakfast this morning and said she did have a little bit trouble with her right arm trying to eat food. She said she did have a difficult time raising her right arm unless she use her left arm to assist. Patient does say she is feeling a little bit better than she was yesterday. Patient is mostly complaining pain over the right hip as she points to the lateral right upper leg near the incision where she had total hip arthroplasty. Patient does not complain of any knee pain at this time. Patient denies chest pain, fever, shortness of breath, nausea, vomiting, fever, loss of bowel/bladder control. Objective: Right shoulder - negative for any ecchymosis, open fractures, nodules. Patient is unable to forward elevate right shoulder her own power. Patient is able to elevate right shoulder by using her left arm to lift. There is some pain during palpation along the anterior glenohumeral region. Mild TTP along proximal humerus. Right Hip - Negative for any open fractures, ecchymoses, erythema. Positive for scar where incsion was from total hip. TTP laterally where scar is from total hip arthroplasty. Patient is able to flex right hip. Right knee - Ecchymoses evident along lateral side right knee. TTP along lateral femoral condyles and proximal fibula where ecchymoses is present. Patient has FROM in right knee flexion/extension. Sensation is equal, symmetric, bilaterally intact throughout the upper and lower extremities. Negative Homans bilaterally; neurovascular status intact. Radial pulses intact, bilaterally. Cap refill under 3 seconds in digits of upper extremities. Assessment: 1. Right knee osteoarthritis; Right hip prosthesis - stable; right shoulder rotator cuff arthropathy Plan: 1. Right knee osteoarthritis; Right hip prosthesis - stable; right shoulder rotator cuff arthropathy - patient stable at bedside this morning. X-rays of right shoulder, right hip, right knee have been reviewed with my attending, Dr. Terrell. I did discuss the findings of the x-rays with the patient at bedside. Upon review the x-rays there is no evidence of fracture within the right should er, right hip, right knee. Prosthesis in the right hip is intact and stable at this time. Patient does have advanced osteoarthritic changes within the right knee as well as the right shoulder with right shoulder rotator cuff arthropathy. At this time we do not recommend any emergent/urgent orthopedic surgical intervention. We do recommend conservative management at this time by using pain medications such as Tylenol and ice to the areas. From an orthopedic standpoint, patient is stable for discharge home. We do recommend patient to follow-up in the outpatient setting for further evaluation. Orthopedics is signing off at this time. Please do not hesitate to contact us for any further questions. 2. Appreciate medical management 3. Pain management - Spangle; Tylenol 4. DVT prophylaxis - Eliquis 5. GI ppx - Protonix 6. PT/OT - WBAT
--- NOTE | 2022-01-24 11:25 | P.PN ---
Subjective Progress Note Date: 01/23/22 Patient was seen on follow-up. Patient's son and daughter both were present today. Patient's daughter states that she did not see the patient fall. However immediately after the fall, she went in the bathroom, and saw patient laying on the right side on the right arm, and her right arm was extended behind her. She probably ripped off her rotator cuff. Patient's daughter also tells me that patient has some issues with her both shoulders for last 5 years as she was having difficulty with combing and clipping her hears. Her shoulder would ache. She continues to have right facial droop, although the swelling has much improved. Patient is also using her left arm instead of right arm to feed. She is manually lifting her right arm using her left hand. Her both shoulders appears very weak. There is no pain. Denies any neck pain. Objective - Vital Signs Vital signs: Vital Signs Temp 97.4 F L 01/24/22 10:15 Pulse 95 01/24/22 10:15 Resp 20 01/24/22 10:15 BP 100/59 01/24/22 10:15 Pulse Ox 96 01/24/22 10:15 Intake & Output 01/23/22 01/24/22 01/24/22 18:59 06:59 18:59 Intake Total 240 240 240 Output Total 400 400 Balance -160 240 -160 Intake: Oral 240 240 240 Output: Urine 400 400 Other: Voiding Method Toilet Toilet # Voids 2 1 - Exam Patient's mental status, speech and language functions are normal. Cranial nerv es are significant for right facial droop, central type. Tongue protrudes in midline. Muscle strength, patient has bilateral shoulder weakness about 3+ to 3- bilaterally. Biceps, triceps and hydro plant site manager is normal. Hip flexion is 4+to5- bilaterally. Ankles are normal. Sensations are equal. No obvious ataxia. - Labs CBC & Chem 7: 01/22/22 07:21 01/22/22 07:21 Assessment and Plan Assessment: * Status post fall due to slipping after taking the shower. * Right facial droop, probably due to mechanical fall, right facial swelling. Rule out CVA because of persistent facial droop, and right shoulder arm weakness. * Hypertension * Bilateral shoulder weakness, probable related to rotator cuff tear versus osteo-arthritic. Right shoulder has got worse likely due to fall on the right. * Cervical spondylosis. Patient has bilateral deltoid weakness, without any weakness of the biceps, or triceps. There is no neck pain. No clinical evidence of cervical radiculopathy or definitive spinal stenosis. * Atrial fibrillation on Eliquis * Hypothyroidism * Prediabetes. Plan: * Await MRI of brain rule out CVA. Cancel MRI of the cervical spine, as patient has no neck pain, no evidence of cervical stenosis. Patient does not want any surgery whatsoever, even if stenosis is identified. * CTA of head and neck showed no significant arterial stenosis, occlusion, dissection or other acute abnormality in the major neck or intracranial arteries. * 2-D echo revealed normal left ventricular size. Mild concentric LVH. Overall left ventricular systolic function is mildly impaired with EF between 45-50. Left atrium is severely dilated. Mild aortic valve sclerosis. Mitral valve leaflets are mildly thickened. * Continue Eliquis 2.5 mg twice a day * Lipid panel with cholesterol 150, LDL 63, HDL 41 and triglycerides 225. Continue Lipitor 10 mg daily. * Hemoglobin A1c 6.0. * PT and OT recommended subacute rehab, but patient declined and wants to go home. * Neurologically clear, if the MRI of brain comes back normal. Addendum: MRI of the brain came back normal. No signs of acute stroke. Appreciate orthopedic consult input. Neurologically clear for discharge.
--- NOTE | 2022-01-24 17:11 | P.PN ---
Subjective Progress Note Date: 01/24/22 Patient was seen on follow-up. Patient's son and daughter both were present today. Patient is doing well, ready to go home. Denies any new neurological symptoms. Per patient's daughter report she did not see the patient fall. However immediately after the fall, she went in the bathroom, and saw patient laying on the right side on the right arm, and her right arm was extended behind her. She probably ripped off her rotator cuff. Patient's daughter also tells me that patient has some issues with her both shoulders for last 5 years as she was having difficulty with combing and clipping her hears. Her shoulder would ache. She continues to have right facial droop, although the swelling has much improved. Patient is also using her left arm instead of right arm to feed. She is manually lifting her right arm using her left hand. Her both shoulders appears very weak. There is no pain. Denies any neck pain. Objective - Vital Signs Vital signs: Vital Signs Temp 97.4 F L 01/24/22 10:15 Pulse 95 01/24/22 10:15 Resp 20 01/24/22 10:15 BP 100/59 01/24/22 10:15 Pulse Ox 96 01/24/22 10:15 Intake & Output 01/23/22 01/24/22 01/24/22 18:59 06:59 18:59 Intake Total 240 240 240 Output Total 400 400 Balance -160 240 -160 Intake: Oral 240 240 240 Output: Urine 400 400 Other: Voiding Method Toilet Toilet Toilet # Voids 2 1 - Exam Patient's mental status, speech and language functions are normal. Cranial nerves are significant for right facial droop, central type. Tongue protrudes in midline. Muscle strength, patient has bilateral shoulder weakness about 3+ to 3- bilaterally. Biceps, triceps and race steward is normal. Hip flexion is 4+to5- bilaterally. Ankles are normal. Sensations are equal. No obvious ataxia. - Labs CBC & Chem 7: 01/22/22 07:21 01/22/22 07:21 Assessment and Plan Assessment: * Status post fall due to slipping after taking the shower. * Right facial droop, probably due to mechanical fall, right facial swelling. N o evidence of acute CVA on MRI. * Hypertension * Bilateral shoulder weakness, right much worse than left, most likely related to rotator cuff tear and component of osteoarthritis. Right shoulder has got worse likely due to fall on the right. * Cervical spondylosis. Patient has bilateral deltoid weakness, without any weakness of the biceps, or triceps. There is no neck pain. No clinical evidence of cervical radiculopathy or definitive spinal stenosis. * Atrial fibrillation on Eliquis * Hypothyroidism * Prediabetes. Plan: * MRI of the brain came back normal. No signs of acute stroke. I personally reviewed MRI agree with the findings. * Appreciate orthopedic consult input. Right knee osteoarthritis, right hip prosthesis. Patient also has right rotator cuff arthropathy. Recommend outpatient follow-up. * CTA of head and neck showed no significant arterial stenosis, occlusion, dissection or other acute abnormality in the major neck or intracranial arteries. * 2-D echo revealed normal left ventricular size. Mild concentric LVH. Overall left ventricular systolic function is mildly impaired with EF between 45-50. Left atrium is severely dilated. Mild aortic valve sclerosis. Mitral valve leaflets are mildly thickened. * Continue Eliquis 2.5 mg twice a day * Lipid panel with cholesterol 150, LDL 63, HDL 41 and triglycerides 225. Continue Lipitor 10 mg daily. * Hemoglobin A1c 6.0. * PT and OT recommended subacute rehab, but patient declined and wants to go ho me. * Neurologically clear for discharge.
--- NOTE | 2022-01-24 22:20 | P.DS ---
Providers Date of admission: 01/20/22 18:09 Expected date of discharge: 01/24/22 Attending physician: Frances Salazar DO Consults: 01/20/22 17:08 Consult Physician Routine Consulting Provider: Brayan López Consult Reason/Comments: CVA?/ fall hematoma noted. Do you want consulting provider notified?: Yes 01/23/22 10:37 Consult Physician Routine Consulting Provider: Praveen Terrell Consult Reason/Comments: fall, unable to move shoulder Do you want consulting provider notified?: Yes Primary care physician: Lio Mariano MD Hospital Course: Discharge Diagnosis: Right facial droop due to injury, CVA ruled out Acute on chronic right rotator cuff tear Right knee osteoarthritis, right hip prosthesis Severe arthritis Cervical spondylosis A. fib Hypothyroidism Prediabetes Hypertension Hospital Course: Patient is an 89-year-old female with known atrial fibrillation anticoagulated with eliquis, hypothyroidism, and hypertension who presented to the hospital after a fall. In the ER she underwent an extensive evaluation. Initial radiologic evaluation was negative. She was admitted for concern for CVA versus mechanical fall with right facial droop. Neurology was consulted and agreed that most likely her right facial droop was due to right facial swelling. They did recommend continuing workup for possible CVA came back negative. Patient underwent extensive x-rays which all were negative. She was found have a chronic throat rotator cuff tear as well as severe arthritis. She was doing well and determined stable for discharge home. Follow-up: Home health care with physical therapy and occupational therapy, follow-up with cardiology, orthopedics, primary care in 1-2 days Imaging: MRI brain: No recent infarct X-ray RIght knee: Moderate osteoarthritic changes to the right knee X-ray Right hip: No acute fracture with right hip hemiprosthesis in place. Right shoulder x-ray: Chronic osteoarthritic degenerative changes with chronic rotator cuff tear Echocardiogram: Ejection fraction 45-50%, mild concentric LVH Chest x-ray: COPD CT angiogram head and neck: No significant arterial stenosis, occlusion, dissection, or other acute abnormality CT cervical spine, no acute bony fracture advanced degenerative changes CT facial bones: Right facial soft tissue swelling without acute facial bone fracture CT brain: No acute intracranial abnormality, brain loss with chronic ischemic changes, right parietal scalp hematoma with swelling Patient seen and examined at bedside. Patient denies any pain. She is feeling well and wants to go home. She just did update her son is: The phone and informed of her discharge and my recommendations for home health care with physical therapy. All questions answered. Vital signs reviewed and stable.General: non toxic, no distress, appears at stated age Derm: warm, dry Head: Bruising right jaw and face, swelling over right jaw. Oral area. Eyes: EOMI, no lid lag, anicteric sclera Mouth: no lip lesion, mucus membranes moist Cardiovascular: S1S2 reg, no murmur, positive posterior tibial pulse bilateral, Lungs: CTA bilateral, no rhonchi, no rales , no accessory muscle use Abdominal: soft, nontender to palpation, no guarding, no appreciable organomegaly Ext: no gross muscle atrophy, no edema, no contractures Neuro: CN II-XI grossly intact, no focal neuro deficits Psych: Alert, oriented, appropriate affect A total of 32 minutes of time were spent preparing this complex discharge summary . Patient Condition at Discharge: Fair Plan - Discharge Summary New Discharge Prescriptions: Continue Digoxin [Lanoxin] 125 mcg PO DAILY Metoprolol Tartrate [Lopressor] 50 mg PO BID Simvastatin [Zocor] 10 mg PO HS Levothyroxine Sodium [Synthroid] 50 mcg PO DAILY Pramipexole [Mirapex] 0.25 mg PO HS Losartan Potassium 25 mg PO HS Multivitamins, Thera [Multivitamin (formulary)] 1 tab PO DAILY Furosemide [Lasix] 20 mg PO DAILY Oxybutynin ER [Ditropan Xl] 10 mg PO HS Apixaban [Eliquis] 2.5 mg PO BID 30 Days #60 tab Discontinued Potassium Chloride 10 meq PO BID Discharge Medication List Digoxin [Lanoxin] 125 mcg PO DAILY 04/14/16 [History] Levothyroxine Sodium [Synthroid] 50 mcg PO DAILY 04/14/16 [History] Metoprolol Tartrate [Lopressor] 50 mg PO BID 04/14/16 [History] Simvastatin [Zocor] 10 mg PO HS 04/14/16 [History] Losartan Potassium 25 mg PO HS 05/20/19 [History] Pramipexole [Mirapex] 0.25 mg PO HS 05/20/19 [History] Multivitamins, Thera [Multivitamin (formulary)] 1 tab PO DAILY 08/07/19 [History] Furosemide [Lasix] 20 mg PO DAILY 09/16/21 [History] Oxybutynin ER [Ditropan Xl] 10 mg PO HS 09/16/21 [History] Apixaban [Eliquis] 2.5 mg PO BID 30 Days #60 tab 09/20/21 [Rx] Follow up Appointment(s)/Referral(s): Lio Mariano MD [Primary Care Provider] - 1 Week (Office is closed at time of discharge, ensure the office is aware the appointment is following a hospital stay.) Lio Lopez MD [STAFF PHYSICIAN] - 01/31/22 11:00 am [facility], [NON-STAFF] - Mike Guy PAC [PHYSICIAN [facility] LAPPER] - 02/07/22 11:20 am Patient Instructions/Handouts: Concussion (DC) Activity/Diet/Wound Care/Special Instructions: Activity: as tolerated Fall precautions Diet: regular Special Instructions: Recommend home care Discharge Disposition: HOME WITH HOME HEALTH SERVICES
== END 2022-01-24 13:25 | disposition home health service (06) | DRG 605 ==
LOC: EC 13:17 → 3SCARD 18:09
PROVIDERS: ADMIT Internal Medicine; ATTEND Internal Medicine
DX: S00.83XA Contusion of other part of head, initial encounter (principal); I48.21 Permanent atrial fibrillation; R29.810 Facial weakness; E03.9 Hypothyroidism, unspecified; J44.9 Chronic obstructive pulmonary disease, unspecified; M17.11 Unilateral primary osteoarthritis, right knee; M47.812 Spondylosis without myelopathy or radiculopathy, cervical region; I10 Essential (primary) hypertension; E78.5 Hyperlipidemia, unspecified; S00.03XA Contusion of scalp, initial encounter; S46.011A Strain of muscle(s) and tendon(s) of the rotator cuff of right shoulder, initial encounter; S00.511A Abrasion of lip, initial encounter; S70.11XA Contusion of right thigh, initial encounter; S80.01XA Contusion of right knee, initial encounter; M19.012 Primary osteoarthritis, left shoulder; M19.011 Primary osteoarthritis, right shoulder; M21.161 Varus deformity, not elsewhere classified, right knee; I25.2 Old myocardial infarction; I49.3 Ventricular premature depolarization; I08.0 Rheumatic disorders of both mitral and aortic valves; R29.6 Repeated falls; R73.03 Prediabetes; Z79.01 Long term (current) use of anticoagulants; Z79.890 Hormone replacement therapy; Z79.899 Other long term (current) drug therapy; Z91.81 History of falling; Z96.641 Presence of right artificial hip joint; W01.0XXA Fall on same level from slipping, tripping and stumbling without subsequent striking against object, initial encounter; Y92.002 Bathroom of unspecified non-institutional (private) residence as the place of occurrence of the external cause; Z83.49 Family history of other endocrine, nutritional and metabolic diseases; Z80.9 Family history of malignant neoplasm, unspecified
CPT/HCPCS: 36415; 70450; 70486; 70496; 70498; 70551; 71045; 72125; 73501; 80048; 80053; 80061; 83036; 84484; 85025; 85610; 85730; 93306; 99285